=== PATIENT | female | born 1965 | race Caucasian/White ===

== ENCOUNTER 2023-11-06 14:00 | Outpatient (OUT) | payer MEDICARE, SELFPAY | END 2023-11-06 14:01 | disposition home or self-care (01) | PROVIDERS: PCP Internal Medicine; Visit Provider Surgery | DX: Z01.818 Encounter for other preprocedural examination (principal); Z12.11 Encounter for screening for malignant neoplasm of colon ==

== ENCOUNTER 2023-11-14 07:21 | Day surgery (SDC) | payer MEDICARE, SELFPAY ==
--- NOTE | 2023-11-14 | OP_ITS ---
OPERATION DATE: 11/14/2023 PREOPERATIVE DIAGNOSIS: Colorectal screening. POSTOPERATIVE DIAGNOSIS: A 4 mm transverse colon polyp and sigmoid diverticulosis. PROCEDURE: Colonoscopy to cecum with cold snare polypectomy x1. SURGEON: Quinton Vela M.D. ANESTHESIA: Monitored anesthesia care. ESTIMATED BLOOD LOSS: Less than 1 mL. INDICATIONS AND CONSENT: Patient is a 58-year-old female presents for colorectal screening. Indications, risks, benefits, alternatives of proceeding with colonoscopy were explained extensively to the patient, including the risks of bleeding, colon perforation or anesthetic complications. All of her questions were answered. Informed consent was obtained. PROCEDURE: Patient brought to the operating room, placed in the left lateral decubitus position. Monitored anesthesia care was provided. Rectal exam was performed which showed no masses or blood. The scope was inserted into the anal canal. Under direct visualization was advanced. With the aid of abdominal compression, it was advanced to the cecum where cecal markings were clearly identified. There was noted to be a good prep. Upon withdrawal of the scope, mucosal surfaces were carefully examined. There were no mass lesions or inflammatory changes. In the distal transverse colon, there was a 4 mm sessile polyp that was irregular. This was removed with cold snare with good hemostasis. Within the sigmoid colon, there was moderate sigmoid diverticulosis, without inflammatory changes or scarring. The scope was retroflexed in the anal canal. There was no significant hemorrhoidal disease. Scope was then withdrawn. Patient tolerated procedure well, was sent to recovery room in good condition. Follow up colonoscopy likely will be in five years, but will depend on the pathology report. CC: Luca Stahl
--- OUTSIDE RECORDS SUMMARY | 2023-11-14 07:25 | XMS_ITS | CCD ---
Author Name Unknown Address [address] [place] [address] Organization [facility] Care Team Providers Care Lumber Stacker Operator Name Role Phone DAHLIA DRIVER JR Unavailable Unavailable DAHLIA DRIVER JR Unavailable Unavailable VALONE, JONATHON Unavailable Unavailable MARVEL NICOLAS Unavailable Unavailable NEISHA MONTIEL, DAHLIA Guo Unavailable Unavailable VALONE, JONATHON Unavailable Unavailable VALONE, JONATHON Unavailable Unavailable VALONE, JONATHON Unavailable Unavailable VALONE, JONATHON Unavailable Unavailable BRYAN FOFANA Unavailable Unavailable KAREN OSMAN Unavailable Unavailable RABIA HATCH Unavailable Unavailable ROBBINONE JONATHON MONTIEL Primary Care Physician JONATHON LEE Referring Unavailable Quinton ZUNIGA Attending Unavailable VALONE JR, JONATHON L Referring Unavailable VALONE JR, JONATHON L Primary Care Unavailable VALONE JR, JONATHON L Primary Care Unavailable JUAN HA Attending Unavailable ARIELLA TSANG Unavailable ROXANA FOFANA Admitting Unavailable VALONE JR, JONATHON Guo Referring Unavailable VALONE JR, JONATHON L Primary Care Unavailable LU PLUNKETT Referring Unavailable SARA VELAZCO Attending Unavailable NANCY ALFREDO Referring Unavailable ALFREDO CRUZ Referring Unavailable ERIUKALÓPEZ PASTOR Referring Unavailable MOUKARBELLÓPEZ Referring Unavailable MOUKARBELLÓPEZ Referring Unavailable MOUKARBELLÓPEZ Referring Unavailable NANCY, ALFREDO Referring Unavailable ERIUKALÓPEZ PASTOR Attending Unavailable NANCY, ALFREDO Referring Unavailable Allergies Allergy Classification Reported Allergen(s) Allergy Type Date of Onset Reaction(s) Facility (1 source) No Known Medication Allergies; Translations: [No Known Medication Allergies] Propensity to adverse reactions (disorder) [facility] Repository (1 source) denosumab; Translations: [DENOSUMAB] Drug Allergy 4 [facility] Repository Medications Current Medications Medication Drug Class(es) Dates Sig (Normalized) Sig (Original) calcitriol 0.62830 mg oral capsule (1 source) Vitamin D3 Analog Start: 06-29-2022 calcitriol 0.25 mcg Cap 0.25 mcg = 1 cap(s), Oral, MonWedFri, Refills(s) 0 Start Date: 06/29/22 Status: Ordered calcium acetate 667 mg oral capsule (1 source) Start: 10-10-2023 take 1 capsule by mouth three times daily calcium acetate 667 mg oral capsule 667 mg = 1 cap(s), Oral, TID, Refills(s) 0 Start Date: 10/10/23 Status: Ordered DilTIAZem (Eqv-Cardizem CD) 180 mg/24 hours oral capsule, extended release (1 source) Start: 10-01-2023 DilTIAZem (Eqv-Cardizem CD) 180 mg/24 hours oral capsule, extended release 180 mg = 1 cap(s), Oral, Daily, Refills(s) 0 Start Date: 10/01/23 Status: Ordered gabapentin 300 mg oral capsule (1 source) Anti-epileptic Agent Start: 09-02-2021 take 1 capsule by mouth once daily gabapentin 300 mg Cap 300 mg = 1 cap(s), Oral, Daily, Refills(s) 0 Start Date: 09/02/21 Status: Ordered magnesium oxide 400 mg oral tablet (1 source) Start: 10-10-2023 take 1 tablet by mouth once daily magnesium oxide 400 mg Tab 400 mg = 1 tab(s), Oral, Daily, Refills(s) 0 Start Date: 10/10/23 Status: Ordered rosuvastatin calcium 20 mg oral tablet (1 source) HMG-CoA Reductase Inhibitor Start: 06-17-2021 take 1 tablet by mouth once daily rosuvastatin 20 mg Tab 20 mg = 1 tab(s), Oral, Daily, Refills(s) 0 Start Date: 06/17/21 Status: Ordered Problems Active Problems Problem Classification Problem Date Documented Date Episodic/Chronic Abdominal pain (1 source) Epigastric pain; Translations: [EPIGASTRIC PAIN] Onset: Episodic Cardiac dysrhythmias (1 source) Supraventricular tachycardia 10-01-2023 Chronic Chronic kidney disease (7 sources) Dependence on continuous ambulatory peritoneal dialysis; Translations: [End-stage renal disease] Onset: 3 10-10-2023 Chronic Disorders of lipid metabolism (4 sources) Hyperlipidemia; Translations: [Mixed hyperlipidemia] Onset: 3 06-04-2019 Chronic Essential hypertension (5 sources) Essential (primary) hypertension; Translations: [Essential hypertension] Onset: 8 10-01-2023 Chronic Fluid and electrolyte disorders (1 source) Other disorders of electrolyte and fluid balance, not elsewhere classified; Translations: [Other disorders of electrolyte and fluid balance, not elsewhere classified] Onset: 4 Episodic Gastritis and duodenitis (1 source) Unspecified chronic gastritis without bleeding; Translations: [UNS CHRONIC GASTRITIS W/O BLEEDING] Onset: 8 Chronic Genitourinary symptoms and ill-defined conditions (1 source) Genuine stress incontinence 06-04-2019 Chronic Genitourinary symptoms and ill-defined conditions (8 sources) Hematuria, unspecified; Translations: [Microscopic hematuria] Onset: 8 06-04-2019 Episodic Headache; including migraine (1 source) Migraine 10-01-2023 Chronic Osteoporosis (1 source) Osteoporosis 10-01-2023 Chronic Other aftercare (1 source) Encounter for follow-up examination after completed treatment for conditions other than malignant neoplasm; Translations: [Encounter for follow-up examination after completed treatment for conditions other than malignant neoplasm] Onset: 4 Episodic Other diseases of bladder and urethra (1 source) Urethral stricture 06-04-2019 Episodic Other gastrointestinal disorders (4 sources) Dysphagia, unspecified; Translations: [DYSPHAGIA UNSPECIFIED] Onset: 8 Episodic Other nutritional; endocrine; and metabolic disorders (1 source) Hypocalcemia; Translations: [Hypocalcemia] Onset: 4 Chronic Other screening for suspected conditions (not mental disorders or infectious disease) (4 sources) Screening for malignant neoplasm of colon done; Translations: [Encounter for screening for malignant neoplasm of colon] Onset: 3 Episodic Unclassified (1 source) Patient encounter status 10-10-2023 Unclassified (1 source) Abnormal Lab Onset: 4 Unclassified (1 source) Abnormal Lab Values Onset: 4 Urinary tract infections (1 source) 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 Episodic Past or Other Problems Problem Classification Problem Date Documented Da te Episodic/Chronic Other diseases of kidney and ureters (1 source) Disorder of kidney and ureter, unspecified; Translations: [DISORDER KIDNEY AND URETER UNS] Onset: 11-09-2017 Episodic Results Test Name Value Interpretation Reference Range Facility MAMM 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 COMPARISON: Mammograms dating back to 03/01/2017 TECHNIQUE: Bilateral digital tomosynthesis MLO and CC views of the breasts were obtained, with creation of synthetic 2D views. Computer aided detection was utilized. FINDINGS: The breasts are almost entirely fatty. There are no suspicious masses, calcifications, or areas of architectural distortions. IMPRESSION: No mammographic evidence of malignancy. BI-RADS: BI-RADS 1 - Negative Recommendation: Routine screening mammogram in 1 year. Finalized by Suzi Reis MD on 11/09/2023 1:31 PM 1 a MAMM 1 YR Normal [facility] 30on 11-07-2023 30 Treadmill Cardiolite Patient information sheet explained, questions answered and signed. Doctor consulted--NA Treatment/Decision tree utilized-renal transplant evaluation F/U appointment scheduled with Dr. Mo 11/07/@ 11:40am PT tolerated treadmill well, target heart rate achieved. No acute ST or T waves changes noted Denies chest pain or dyspnea Pt left stress lab asymptomatic and hemodynamically stable. Full final report from mill dresser to follow Leticia Quinn, MSN, ICE RINK ATTENDANT Stress Lab Normal [facility] ABO/RHon 11-07-2023 ABO group Nom (Bld) B Normal [facility] Comment on above: Performed By: #### L [id number] ####[facility] BLOOD BANK, RH TYPE IN BLOOD Positive Normal [facility] Comment on above: Performed By: #### L [id number] ####[facility]OD [facility], Consulton 11-07-2023 Consult [id number] Ho Zambrano 1965 F Date Provider Department Center 11/07/2023 [facility] CARD [place] HeartVAS Family History Problem Relation Age of Onset Cancer Father Breast cancer Mother's Sister Breast cancer Cousin Family Status - Relation Status Age at Father Mother's Sister Cousin Alive Level of Service:63058 SD OFFICE/OP CONSLTJ NEW/EST PT LOW MDM 30 MINUTES Reason for Visit and Comments: Cardiac evaluation for Renal Transplant [Other] - CREDIT RISK MODELER with stress and echo today. Normal [facility] Labon 11-07-2023 Lab [id number] Ho Zambrano eenorberto 1965 F Date Provider Department Center 11/07/2023 2245-[facility] OPD LAB RESOURCE [facility] OPD [place] Medical C Family History Problem Relation Age of Onset Cancer Father Breast cancer Mother's Sister Breast cancer Cousin Family Status - Relation Status Age at Father Mother's Sister Cousin Alive Normal [facility] PANEL REACTIVE ANTIBODYon HOLD SPECIMEN Hold for add-ons. Normal [facility] Comment on above: Result Comment: Auto resulted. Performed By: #### L [id number] #### [facility] TISSUE TYPING (HISTOTRAC) [address] [id number] [facility] Physician Orderon 10-26-2023 Physician Order [id number] IFF Normal [facility] Formson 10-12-2023 Forms [id number]#[id number] FF [facility] Consent for Procedure/Surger yon 10-11-2023 Consent for Procedure/Surgery [id number]#1.00T IFF Normal [facility] Ambulatory Visit Summaryon 0 10-10-2023 Ambulatory Visit Summary MULU ZAMBRANO :1965 Visit Date:10/10/2023 Ambulatory Visit Instructions Your Diagnosis Special screening for malignant neoplasm of colon Your Care Team Attending Physician - Quinton ZUNIGA MD Primary Care Physician - JONATHON LEE JR, DO Referring Physician - JONATHON LEE JR, DO This Is Your Medications List Contact prescribing physician if questions or concerns calcitriol (calcitriol 0.25 mcg Cap) calcium acetate (calcium acetate 667 mg oral capsule) diltiazem (DilTIAZem (Eqv-Cardizem CD) 180 mg/24 hours oral capsule, extended release) gabapentin (gabapentin 300 mg Cap) magnesium oxide (magnesium oxide 400 mg Tab) rosuvastatin (rosuvastatin 20 mg Tab) Procedures Performed Cystourethroscopy with dilation of urethral stricture (11/15/2017), Colonoscopy (12/16/2015), CAPD - continuous ambulatory peritoneal dialysis, EGD - esophagogastroduodenosc opy, EGD - esophagogastroduodenosc opy. Discharge Vitals Heart Rate (Peripheral) 76 Respiratory Rate 16 Blood Pressure 128/90 Height 152.4 cm Height 60 in Weight 74.2 kg Weight 163.24 lb BMI 31.95 Medications What How Much When Instructions Unchanged calcitriol (calcitriol 0.25 mcg Cap) 1 Capsules By Mouth Sunday Contact prescribing physician if questions or concerns Unchanged calcium acetate (calcium acetate 667 mg oral capsule) 1 Capsules By Mouth 3 times a day Contact prescribing physician if questions or concerns Unchanged diltiazem (DilTIAZem (Eqv-Cardizem CD) 180 mg/ 24 hours oral capsule, extended release) 1 Capsules By Mouth Every day Contact prescribing physician if questions or concerns Unchanged gabapentin (gabapentin 300 mg Cap) 1 Capsules By Mouth Every day Contact prescribing physician if questions or concerns Unchanged magnesium oxide (magnesium oxide 400 mg Tab) 1 Tablets By Mouth Every day Contact prescribing physician if questions or concerns Unchanged rosuvastatin (rosuvastatin 20 mg Tab) 1 Tablets By Mouth Every day Contact prescribing physician if questions or concerns Allergies No Known Allergies No Known Medication Allergies Problems Ongoing - Any problem that you are currently receiving treatment for. Chronic interstitial nephritis Continuous ambulatory peritoneal dialysis status End stage renal disease Essential hypertension Hyperlipidemia Microscopic hematuria Migraines Nocturia Osteoporosis Special screening for malignant neoplasm of colon Stress urinary incontinence SVT (supraventricular tachycardia) Urethral stricture Urgency - urination Urinary frequency Historical - Any problem that you are no longer receiving treatment for. Hyperlipidemia Hypertension Patient Survey You may receive a survey via text or e-mail asking about your office visit. Please share your experience with us by completing your survey. We appreciate your feedback and thank you for choosing us for your care. Normal [facility] Facesheeton 10-10-2023 Facesheet [id number] [id number] Normal [facility] BASIC METABOLIC PANLon 10-03 Anion gap [Moles/Vol] 11 mmol/L Normal 5-15 [facility] Comment on above: Performed By: #### C BCA, CMP, FEPR, 57265-3, 2777-1, 5193-8, 5196-1, 2276-4, 2731-8, 2132-9, 2284-8, 03258-7 #### [facility] ([id number]) [address], [address] [place] [address] Calcium [Mass/Vol] 8.5 mg/dL Normal 8.5-10.5 [facility] Comment on above: Performed By: #### C BCA, CMP, FEPR, 09882-1, 7-1, 3-8, 5196-1, 2276-4, 2731-8, 2132-9, 2284-8, 51356-6 #### [facility] ([id number]) [address], [address] [place] [address] Chloride [Moles/Vol] 111 mmol/L High 98-109 [facility] Comment on above: Performed By: #### C BCA, CMP, FEPR, 18512-8, 7-1, 5193-8, 5196-1, 2276-4, 2731-8, 2132-9, 2284-8, 01945-5 #### [facility] ([id number]) [address], [address] [place] [address] CO2 [Moles/Vol] 21 mmol/L Low 22-32 [facility] Comment on above: Performed By: #### C BCA, CMP, FEPR, 32748-2, 2777-1, 5193-8, 5196-1, 2276-4, 2731-8, 2132-9, 2284-8, 49157-1 #### [facility] ([id number]) [address], [address] [place] [address] Creatinine [Mass/Vol] 3.78 mg/dL High 0.40-1.00 [facility] Comment on above: Result Comment: METH OD TRACEABLE TO IDMS STANDARD Performed By: #### C BCA, CMP, FEPR, 99740-8, 2777-1, 5193-8, 5196-1, 2276-4, 2731-8, 2132-9, 2284-8, 26119-4 #### [facility] ([id number]) [address], [address] [place] [address] GFR/1.73 sq M.predicted among non-blacks MDRD (S/P/Bld) [Vol rate/Area] 13 mL/min/{1.73_m2} Low >59 [facility] Comment on above: Result Comment: Reported eGFR is based on the CKD-EPI 2020 equation that does not use a race coefficient. Performed By: #### C BCA, CMP, FEPR, 43799-9, 2777-1, 5193-8, 5196-1, 2276-4, 2731-8, 2132-9, 2284-8, 00728-4 #### [facility] ([id number]) [address], [address] [place] [address] Glucose [Mass/Vol] 93 mg/dL Normal 65-99 [facility] Comment on above: Performed By: #### C BCA, CMP, FEPR, 53450-1, 2777-1, 5193-8, 5196-1, 2276-4, 2731-8, 2132-9, 2284-8, 46347-4 #### [facility] ([id number]) [address], [address] [place] [address] Potassium [Moles/Vol] 4.2 mmol/L Normal 3.5-5.0 [facility] Comment on above: Performed By: #### C BCA, CMP, FEPR, 43812-5, 7-1, 5193-8, 5196-1, 2276-4, 2731-8, 2132-9, 2284-8, 28918-0 #### [facility] ([id number]) [address] [facility], [address] [place] [address] Sodium [Moles/Vol] 143 mmol/L Normal 134-146 [facility] Comment on above: Performed By: #### C BCA, CMP, FEPR, 88448-2, 7-1, 3-8, 5196-1, 2276-4, 2731-8, 2132-9, 2284-8, 22790-3 #### [facility] ([id number]) [address] [place] [address], [address] [place] [address] Urea nitrogen [Mass/Vol] 25 mg/dL High 5-23 [facility] Comment on above: Performed By: #### C BCA, CMP, FEPR, 24898-4, 7-1, 3-8, 6-1, 2276-4, 2731-8, 2-9, 2284-8, 25739-0 #### [facility] ([id number]) [address] [place] [address], [address] [place] [address] CBC AND AUTO DIFFon 01-10-20 24 ABSOLUTE BASOPHIL 0.0 X10E9/L Normal 0.0-0.2 [facility] Comment on above: Performed By: #### C BCA, CMP, FEPR, 83263-3, 7-1, 3-8, 5196-1, 2276-4, 2731-8, 2132-9, 2284-8, 43317-8 #### [facility] ([id number]) [facility] [facility], [address] [place] [address] ABSOLUTE NEUTROPHIL 2.7 X10E9/L Normal 1.5-6.6 [facility] Comment on above: Performed By: #### C BCA, CMP, FEPR, 46146-4, 2777-1, 5193-8, 5196-1, 2276-4, 2731-8, 2132-9, 2284-8, 15660-8 #### [facility] ([id number]) [address], [address] [place] [address] Basophils/100 WBC (Bld) 0.7 % Normal [facility] Comment on above: Performed By: #### C BCA, CMP, FEPR, 32393-5, 2777-1, 5193-8, 5196-1, 2276-4, 2731-8, 2132-9, 2284-8, 45739-3 #### [facility] ([id number]) [address], [address] [place] [address] Eosinophils (Bld) [#/Vol] 0.1 10*3/uL Normal 0.0-0.4 [facility] Comment on above: Performed By: #### C BCA, CMP, FEPR, 50328-3, 7-1, 3-8, 5196-1, 2276-4, 2731-8, 2132-9, 2284-8, 28155-6 #### [facility] ([id number]) [address], [address] [place] [address] Eosinophils/100 WBC (Bld) 2.3 % Normal [facility] Comment on above: Performed By: #### C BCA, CMP, FEPR, 66536-2, 7-1, 3-8, 5196-1, 2276-4, 2731-8, 2132-9, 2284-8, 07149-9 #### [facility] ([id number]) [address], [address] [place] [address] Erythrocyte distribution width (RBC) [Ratio] 13.7 % Normal 11.5-15.0 [facility] Comment on above: Performed By: #### C BCA, CMP, FEPR, 18942-6, 7-1, 5193-8, 5196-1, 2276-4, 2731-8, 2132-9, 2284-8, 73053-9 #### [facility] ([id number]) [address], [address] [place] [address] Hematocrit (Bld) [Volume fraction] 32.2 % Low 35-47 [facility] Comment on above: Performed By: #### C BCA, CMP, FEPR, 67034-8, 7-1, 3-8, 5196-1, 2276-4, 2731-8, 2132-9, 2284-8, 56043-3 #### [facility] ([id number]) [address] [facility], [address] [place] [address] Hemoglobin (Bld) [Mass/Vol] 11.1 g/dL Low 11.7-15.5 [facility] Comment on above: Performed By: #### C BCA, CMP, FEPR, 89863-1, 7-1, 3-8, 6-1, 2276-4, 2731-8, 2132-9, 2284-8, 43132-9 #### [facility] ([id number]) [address] [facility], [address] [place] [address] Lymphocytes (Bld) [#/Vol] 1.5 10*3/uL Normal 1.0-3.5 [facility] Comment on above: Performed By: #### C BCA, CMP, FEPR, 83971-3, 7-1, 3-8, 5196-1, 2276-4, 2731-8, 2132-9, 2284-8, 85488-6 #### [facility] ([id number]) [address], [address] [place] [address] Lymphocytes/100 WBC (Bld) 31.6 % Normal [facility] Comment on above: Performed By: #### C BCA, CMP, FEPR, 21315-8, 7-1, 3-8, 5196-1, 2276-4, 2731-8, 2132-9, 2284-8, 12186-8 #### [facility] ([id number]) [address], [address] [place] [address] MCH (RBC) [Entitic mass] 32.3 pg Normal 27-34 [facility] Comment on above: Performed By: #### C BCA, CMP, FEPR, 70361-9, 7-1, 3-8, 5196-1, 2276-4, 2731-8, 2132-9, 2284-8, 13183-2 #### [facility] ([id number]) [address], [address] [place] [address] MCHC (RBC) [Mass/Vol] 34.3 g/dL Normal 32-36 [facility] Comment on above: Performed By: #### C BCA, CMP, FEPR, 83487-5, 7-1, 3-8, 6-1, 2276-4, 2731-8, 2-9, 2284-8, 69680-3 #### [facility] ([id number]) [address], [address] [place] [address] MCV (RBC) [Entitic vol] 94 fL Normal 80-100 [facility] Comment on above: Performed By: #### C BCA, CMP, FEPR, 78190-5, 7-1, 3-8, 6-1, 2276-4, 2731-8, 2132-9, 2284-8, 63858-8 #### [facility] ([id number]) [address], [address] [place] [address] Monocytes (Bld) [#/Vol] 0.4 10*3/uL Normal 0-0.9 [facility] Comment on above: Performed By: #### C BCA, CMP, FEPR, 99319-1, 7-1, 3-8, 6-1, 2276-4, 2731-8, 2132-9, 2284-8, 28942-0 #### [facility] ([id number]) [address], [address] [place] [address] Monocytes/100 WBC (Bld) 8.3 % Normal [facility] Comment on above: Performed By: #### C BCA, CMP, FEPR, 01067-0, 2777-1, 5193-8, 5196-1, 2276-4, 2731-8, 2132-9, 2284-8, 36643-7 #### [facility] ([id number]) [address], [address] [place] [address] Neutrophils/100 WBC (Bld) 57.1 % Normal [facility] Comment on above: Performed By: #### C BCA, CMP, FEPR, 35201-2, 2777-1, 3-8, 5196-1, 2276-4, 2731-8, 2132-9, 2284-8, 72869-8 #### [facility] ([id number]) [address], [address] [place] [address] Platelet mean volume (Bld) [Entitic vol] 7.1 fL Normal 7-12 [facility] Comment on above: Performed By: #### C BCA, CMP, FEPR, 06931-1, 2777-1, 3-8, 5196-1, 2276-4, 2731-8, 2132-9, 2284-8, 97851-9 #### [facility] ([id number]) [address], [address] [place] [address] Platelets (Bld) [#/Vol] 270 10*3/uL Normal 150-450 [facility] Comment on above: Performed By: #### C BCA, CMP, FEPR, 25108-7, 2777-1, 5193-8, 5196-1, 2276-4, 2731-8, 2132-9, 2284-8, 60874-0 #### [facility] ([id number]) [address], [address] [place] [address] RBC COUNT 3.43 X10E12/L Low 3.80-5.20 [facility] Comment on above: Performed By: #### C BCA, CMP, FEPR, 04613-8, 2777-1, 5193-8, 5196-1, 2276-4, 2731-8, 2132-9, 2284-8, 67949-4 #### [facility] ([id number]) [address], [address] [place] [address] WBC (Bld) [#/Vol] 4.7 10*3/uL Normal 4.0-11.0 [facility] Comment on above: Performed By: #### C BCA, CMP, FEPR, 01934-8, 2777-1, 3-8, 5196-1, 2276-4, 2731-8, 2132-9, 2284-8, 86197-0 #### [facility] ([id number]) [address] [facility], [address] [place] [address] Calcium.ionized (Bld) [Moles /Vol]on 10-03-2023 PORTABLE ICA 4.8 mg/dL Normal 4.5-5.3 [facility] Comment on above: Performed By: #### C BCA, CMP, FEPR, 77963-6, 2777-1, 5193-8, 5196-1, 2276-4, 2731-8, 2132-9, 2284-8, 77342-0 #### [facility] ([id number]) [address], [address] [place] [address] PORTABLE ICA 4.6 mg/dL Normal 4.5-5.3 [facility] Comment on above: Performed By: #### C BCA, CMP, FEPR, 75926-2, 2777-1, 5193-8, 5196-1, 2276-4, 2731-8, 2132-9, 2284-8, 18722-6 #### [facility] ([id number]) [address] [facility], [address] [place] [address] MAGNESIUMon 10-03-2023 Magnesium [Mass/Vol] 2.3 mg/dL Normal 1.8-2.6 [facility] Comment on above: Performed By: #### C BCA, CMP, FEPR, 19266-7, 7-1, 3-8, 5196-1, 2276-4, 2731-8, 2131-9, 2283-8, 59121-3 #### [facility] ([id number]) [address] [facility], [address] [place] [address] PHOSPHORUSon 10-03-2023 Phosphate [Mass/Vol] 5.1 mg/dL High 2.4-4.9 [facility] Comment on above: Performed By: #### C BCA, CMP, FEPR, 65483-0, 7-1, 3-8, 6-1, 2276-4, 2730-8, 2131-9, 2283-8, 09644-7 #### [facility] ([id number]) [address] [facility], [address] [place] [address] BASIC METABOLIC PANLon 10-02 Anion gap [Moles/Vol] 11 mmol/L Normal 5-15 [facility] Comment on above: Performed By: #### C BCA, CMP, FEPR, 46009-5, 7-1, 3-8, 5196-1, 2276-4, 1-8, 2131-9, 4-8, 87080-7 #### [facility] ([id number]) [address], [address] [place] [address] Calcium [Mass/Vol] 6.0 mg/dL Critically low 8.5-10.5 [facility] Comment on above: Performed By: #### C BCA, CMP, FEPR, 71260-6, 7-1, 5193-8, 5196-1, 2276-4, 2731-8, 2132-9, 2284-8, 02543-9 #### [facility] ([id number]) [address], [address] [place] [address] Chloride [Moles/Vol] 109 mmol/L Normal 98-109 [facility] Comment on above: Performed By: #### C BCA, CMP, FEPR, 46825-8, 2777-1, 5193-8, 5196-1, 2276-4, 2731-8, 2132-9, 2284-8, 66366-2 #### [facility] ([id number]) [address] [facility], [address] [place] [address] CO2 [Moles/Vol] 20 mmol/L Low 22-32 [facility] Comment on above: Performed By: #### C BCA, CMP, FEPR, 19440-6, 7-1, 3-8, 6-1, 2276-4, 2731-8, 2132-9, 2284-8, 59245-7 #### [facility] ([id number]) [address] [facility], [address] [place] [address] Creatinine [Mass/Vol] 3.80 mg/dL High 0.40-1.00 [facility] Comment on above: Result Comment: METH OD TRACEABLE TO IDMS STANDARD Performed By: #### C BCA, CMP, FEPR, 94156-4, 2777-1, 5193-8, 5196-1, 2276-4, 2731-8, 2132-9, 2284-8, 42488-2 #### [facility] ([id number]) [address] [facility], [address] [place] [address] GFR/1.73 sq M.predicted among non-blacks MDRD (S/P/Bld) [Vol rate/Area] 13 mL/min/{1.73_m2} Low >59 [facility] Comment on above: Result Comment: Reported eGFR is based on the CKD-EPI 2020 equation that does not use a race coefficient. Performed By: #### C BCA, CMP, FEPR, 35188-7, 2777-1, 5193-8, 5196-1, 2276-4, 2731-8, 2132-9, 2284-8, 39959-3 #### [facility] ([id number]) [address], [address] [place] [address] Glucose [Mass/Vol] 113 mg/dL High 65-99 [facility] Comment on above: Performed By: #### C BCA, CMP, FEPR, 26558-1, 2777-1, 3-8, 5196-1, 2276-4, 2731-8, 2132-9, 2284-8, 34136-0 #### [facility] ([id number]) [address], [address] [place] [address] Potassium [Moles/Vol] 3.5 mmol/L Normal 3.5-5.0 [facility] Comment on above: Performed By: #### C BCA, CMP, FEPR, 23916-4, 7-1, 3-8, 5196-1, 2276-4, 2731-8, 2132-9, 2284-8, 09880-2 #### [facility] ([id number]) [address], [address] [place] [address] Sodium [Moles/Vol] 140 mmol/L Normal 134-146 [facility] Comment on above: Performed By: #### C BCA, CMP, FEPR, 44149-1, 2777-1, 3-8, 5196-1, 2276-4, 2731-8, 2132-9, 2284-8, 19407-9 #### [facility] ([id number]) [address], [address] [place] [address] Urea nitrogen [Mass/Vol] 24 mg/dL High 5-23 [facility] Comment on above: Performed By: #### C BCA, CMP, FEPR, 76826-9, 2777-1, 5193-8, 5196-1, 2276-4, 2731-8, 2132-9, 2284-8, 54817-0 #### [facility] ([id number]) [address], [address] [place] [address] CBC AND AUTO DIFFon 10-02-19 24 ABSOLUTE BASOPHIL 0.0 X10E9/L Normal 0.0-0.2 [facility] Comment on above: Performed By: #### C BCA, CMP, FEPR, 26495-1, 2777-1, 5193-8, 5196-1, 2276-4, 2731-8, 2132-9, 2284-8, 89499-6 #### [facility] ([id number]) [address], [address] [place] [address] ABSOLUTE NEUTROPHIL 2.5 X10E9/L Normal 1.5-6.6 [facility] Comment on above: Performed By: #### C BCA, CMP, FEPR, 76509-9, 2777-1, 5193-8, 5196-1, 2276-4, 2731-8, 2132-9, 2284-8, 74735-3 #### [facility] ([id number]) [address], [address] [place] [address] Basophils/100 WBC (Bld) 0.7 % Normal [facility] Comment on above: Performed By: #### C BCA, CMP, FEPR, 53423-9, 2777-1, 5193-8, 5196-1, 2276-4, 2731-8, 2132-9, 2284-8, 59413-0 #### [facility] ([id number]) [address], [address] [place] [address] Eosinophils (Bld) [#/Vol] 0.1 10*3/uL Normal 0.0-0.4 [facility] Comment on above: Performed By: #### C BCA, CMP, FEPR, 34795-0, 2777-1, 5193-8, 5196-1, 2276-4, 2731-8, 2132-9, 2284-8, 32141-0 #### [facility] ([id number]) [address], [address] [place] [address] Eosinophils/100 WBC (Bld) 2.8 % Normal [facility] Comment on above: Performed By: #### C BCA, CMP, FEPR, 30749-8, 2777-1, 5193-8, 5196-1, 2276-4, 2731-8, 2132-9, 2284-8, 62750-6 #### [facility] ([id number]) [address], [address] [place] [address] Erythrocyte distribution width (RBC) [Ratio] 14.1 % Normal 11.5-15.0 [facility] Comment on above: Performed By: #### C BCA, CMP, FEPR, 16855-9, 2777-1, 5193-8, 5196-1, 2276-4, 2731-8, 2132-9, 2284-8, 17235-4 #### [facility] ([id number]) [address], [address] [place] [address] Hematocrit (Bld) [Volume fraction] 33.9 % Low 35-47 [facility] Comment on above: Performed By: #### C BCA, CMP, FEPR, 97968-1, 2777-1, 5193-8, 5196-1, 2276-4, 2731-8, 2132-9, 2284-8, 25400-1 #### [facility] ([id number]) [address], [address] [place] [address] Hemoglobin (Bld) [Mass/Vol] 11.5 g/dL Low 11.7-15.5 [facility] Comment on above: Performed By: #### C BCA, CMP, FEPR, 32476-2, 2777-1, 5193-8, 5196-1, 2276-4, 2731-8, 2132-9, 2284-8, 94673-5 #### [facility] ([id number]) [address], [address] [place] [address] Lymphocytes (Bld) [#/Vol] 1.1 10*3/uL Normal 1.0-3.5 [facility] Comment on above: Performed By: #### C BCA, CMP, FEPR, 05204-8, 2777-1, 5193-8, 5196-1, 2276-4, 2731-8, 2132-9, 2284-8, 54523-8 #### [facility] ([id number]) [address], [address] [place] [address] Lymphocytes/100 WBC (Bld) 27.7 % Normal [facility] Comment on above: Performed By: #### C BCA, CMP, FEPR, 64046-2, 2777-1, 5193-8, 5196-1, 2276-4, 2731-8, 2132-9, 2284-8, 87231-0 #### [facility] ([id number]) [address], [address] [place] [address] MCH (RBC) [Entitic mass] 31.6 pg Normal 27-34 [facility] Comment on above: Performed By: #### C BCA, CMP, FEPR, 38555-3, 2777-1, 5193-8, 5196-1, 2276-4, 2731-8, 2132-9, 2284-8, 13796-6 #### [facility] ([id number]) [address], [address] [place] [address] MCHC (RBC) [Mass/Vol] 33.9 g/dL Normal 32-36 [facility] Comment on above: Performed By: #### C BCA, CMP, FEPR, 39464-9, 2777-1, 5193-8, 5196-1, 2276-4, 2731-8, 2132-9, 2284-8, 12645-2 #### [facility] ([id number]) [address], [address] [place] [address] MCV (RBC) [Entitic vol] 93 fL Normal 80-100 [facility] Comment on above: Performed By: #### C BCA, CMP, FEPR, 19747-1, 2777-1, 5193-8, 5196-1, 2276-4, 2731-8, 2132-9, 2284-8, 40021-6 #### [facility] ([id number]) [address], [address] [place] [address] Monocytes (Bld) [#/Vol] 0.3 10*3/uL Normal 0-0.9 [facility] Comment on above: Performed By: #### C BCA, CMP, FEPR, 96248-4, 2777-1, 3-8, 5196-1, 2276-4, 2731-8, 2132-9, 2284-8, 72292-0 #### [facility] ([id number]) [address] [facility], [address] [place] [address] Monocytes/100 WBC (Bld) 8.5 % Normal [facility] Comment on above: Performed By: #### C BCA, CMP, FEPR, 96126-0, 2777-1, 5193-8, 5196-1, 2276-4, 2731-8, 2132-9, 2284-8, 01102-0 #### [facility] ([id number]) [address], [address] [place] [address] Neutrophils/100 WBC (Bld) 60.3 % Normal [facility] Comment on above: Performed By: #### C BCA, CMP, FEPR, 21784-8, 2777-1, 5193-8, 5196-1, 2276-4, 2731-8, 2132-9, 2284-8, 13275-1 #### [facility] ([id number]) [address], [address] [place] [address] Platelet mean volume (Bld) [Entitic vol] 6.7 fL Low 7-12 [facility] Comment on above: Performed By: #### C BCA, CMP, FEPR, 07504-8, 2777-1, 5193-8, 5196-1, 2276-4, 2731-8, 2132-9, 2284-8, 07848-2 #### [facility] ([id number]) [address], [address] [place] [address] Platelets (Bld) [#/Vol] 271 10*3/uL Normal 150-450 [facility] Comment on above: Performed By: #### C BCA, CMP, FEPR, 78898-0, 2777-1, 3-8, 5196-1, 2276-4, 2731-8, 2132-9, 2284-8, 09181-4 #### [facility] ([id number]) [address], [address] [place] [address] RBC COUNT 3.64 X10E12/L Low 3.80-5.20 [facility] Comment on above: Performed By: #### C BCA, CMP, FEPR, 66491-1, 2777-1, 3-8, 5196-1, 2276-4, 2731-8, 2132-9, 2284-8, 32555-6 #### [facility] ([id number]) [address], [address] [place] [address] WBC (Bld) [#/Vol] 4.1 10*3/uL Normal 4.0-11.0 [facility] Comment on above: Performed By: #### C BCA, CMP, FEPR, 21063-2, 2777-1, 3-8, 5196-1, 2276-4, 2731-8, 2132-9, 2284-8, 71075-2 #### [facility] ([id number]) [address] [place] [address], [address] [place] [address] Calcium.ionized (Bld) [Moles /Vol]on 10-02-2023 PORTABLE ICA 4.4 mg/dL Low 4.5-5.3 [facility] Comment on above: Performed By: #### C BCA, CMP, FEPR, 92198-5, 2777-1, 5193-8, 5196-1, 2276-4, 2731-8, 2132-9, 2284-8, 51595-6 #### [facility] ([id number]) [address] [place] [address], [address] [place] [address] PORTABLE ICA 2.9 mg/dL Critically low 4.5-5.3 [facility] Comment on above: Performed By: #### C BCA, CMP, FEPR, 47298-3, 2777-1, 5193-8, 5196-1, 2276-4, 2731-8, 2132-9, 2284-8, 09908-9 #### [facility] ([id number]) [address] [place] [address], [address] [place] [address] MAGNESIUMon 10-02-2023 Magnesium [Mass/Vol] 1.7 mg/dL Low 1.8-2.6 [facility] Comment on above: Performed By: #### C BCA, CMP, FEPR, 21453-3, 2777-1, 5193-8, 5196-1, 2276-4, 2731-8, 2132-9, 2284-8, 74664-6 #### [facility] ([id number]) [facility] [facility], [address] [place] [address] PHOSPHORUSon 10-02-2023 Phosphate [Mass/Vol] 4.0 mg/dL Normal 2.4-4.9 [facility] Comment on above: Performed By: #### C BCA, CMP, FEPR, 59470-1, 2777-1, 5193-8, 5196-1, 2276-4, 2731-8, 2132-9, 2284-8, 81905-5 #### [facility] ([id number]) [address] [facility], [address] [place] [address] TROPONIN Ion 10-02-2023 Troponin I.cardiac [Mass/Vol] ng/mL Normal 0.00-0.04 [facility] Comment on above: Performed By: #### C BCA, CMP, FEPR, 16337-1, 2777-1, 5193-8, 5196-1, 2276-4, 2731-8, 2132-9, 2284-8, 36895-9 #### [facility] ([id number]) [facility] [facility], [address] [place] [address] Aluminum [Mass/Vol]on 2023 ALUMINUM <5.0 Normal 0.0-15.0 [facility] Comment on above: Result Comment: NOTE INTERPRETIVE INFORMATION: Aluminum, Serum Serum aluminum greater than 50.0 ug/L is consistent with overload and may correlate with toxicity. Elevated results may be due to skin or collection-related contamination, including the use of a noncertified metal-free collection/transport tube. If contamination concerns exist due to elevated levels of serum aluminum, confirmation with a second specimen collected in a certified metal-free tube is recommended. This test was developed and its performance characteristics determined by [facility]. It has not been cleared or approved by the U.S. Food and Drug Administration. This test was performed in a CLIA-certified laboratory and is intended for clinical purposes. Performed By: [facility] [address] [place] [address] [employer]: Familia Rodriguez MD, PhD CLIA Number: [id number] Performed By: #### C BCA, CMP, FEPR, 55720-5, 2777-1, 5193-8, 5196-1, 2276-4, 2731-8, 2132-9, 2284-8, 43377-7 #### [facility] ([id number]) [address], [address] [place] [address] CBC AND AUTO DIFFon 10-01-19 24 ABSOLUTE BASOPHIL 0.0 X10E9/L Normal 0.0-0.2 [facility] Comment on above: Performed By: #### C BCA, CMP, FEPR, 08737-6, 2777-1, 5193-8, 5196-1, 2276-4, 2731-8, 2132-9, 2284-8, 34995-4 #### [facility] ([id number]) [address], [address] [place] [address] ABSOLUTE NEUTROPHIL 2.7 X10E9/L Normal 1.5-6.6 [facility] Comment on above: Performed By: #### C BCA, CMP, FEPR, 04008-3, 2777-1, 5193-8, 5196-1, 2276-4, 1-8, 2-9, 4-8, 21957-5 #### [facility] ([id number]) [address], [address] [place] [address] Basophils/100 WBC (Bld) 0.7 % Normal [facility] Comment on above: Performed By: #### C BCA, CMP, FEPR, 16174-9, 2777-1, 5193-8, 5196-1, 2276-4, 2731-8, 2-9, 4-8, 28138-5 #### [facility] ([id number]) [address], [address] [place] [address] Eosinophils (Bld) [#/Vol] 0.1 10*3/uL Normal 0.0-0.4 [facility] Comment on above: Performed By: #### C BCA, CMP, FEPR, 81527-6, 2777-1, 5193-8, 5196-1, 2276-4, 2731-8, 2132-9, 2284-8, 56988-9 #### [facility] ([id number]) [address], [address] [place] [address] Eosinophils/100 WBC (Bld) 2.1 % Normal [facility] Comment on above: Performed By: #### C BCA, CMP, FEPR, 89149-4, 2777-1, 5193-8, 5196-1, 2276-4, 2731-8, 2132-9, 2284-8, 24461-6 #### [facility] ([id number]) [address], [address] [place] [address] Erythrocyte distribution width (RBC) [Ratio] 13.7 % Normal 11.5-15.0 [facility] Comment on above: Performed By: #### C BCA, CMP, FEPR, 24065-1, 2777-1, 5193-8, 5196-1, 2276-4, 2731-8, 2132-9, 2284-8, 67975-4 #### [facility] ([id number]) [address], [address] [place] [address] Hematocrit (Bld) [Volume fraction] 33.7 % Low 35-47 [facility] Comment on above: Performed By: #### C BCA, CMP, FEPR, 39044-0, 2777-1, 5193-8, 5196-1, 2276-4, 2731-8, 2132-9, 2284-8, 58457-1 #### [facility] ([id number]) [address], [address] [place] [address] Hemoglobin (Bld) [Mass/Vol] 11.4 g/dL Low 11.7-15.5 [facility] Comment on above: Performed By: #### C BCA, CMP, FEPR, 22429-9, 2777-1, 5193-8, 5196-1, 2276-4, 2731-8, 2132-9, 2284-8, 32778-0 #### [facility] ([id number]) [address], [address] [place] [address] Lymphocytes (Bld) [#/Vol] 1.3 10*3/uL Normal 1.0-3.5 [facility] Comment on above: Performed By: #### C BCA, CMP, FEPR, 87710-1, 2777-1, 5193-8, 5196-1, 2276-4, 2731-8, 2132-9, 2284-8, 86468-5 #### [facility] ([id number]) [address], [address] [place] [address] Lymphocytes/100 WBC (Bld) 29.1 % Normal [facility] Comment on above: Performed By: #### C BCA, CMP, FEPR, 94975-1, 2777-1, 5193-8, 5196-1, 2276-4, 2731-8, 2132-9, 2284-8, 94895-2 #### [facility] ([id number]) [address], [address] [place] [address] MCH (RBC) [Entitic mass] 31.9 pg Normal 27-34 [facility] Comment on above: Performed By: #### C BCA, CMP, FEPR, 06010-1, 2777-1, 5193-8, 5196-1, 2276-4, 2731-8, 2132-9, 2284-8, 06291-1 #### [facility] ([id number]) [address], [address] [place] [address] MCHC (RBC) [Mass/Vol] 33.9 g/dL Normal 32-36 [facility] Comment on above: Performed By: #### C BCA, CMP, FEPR, 10554-1, 2777-1, 5193-8, 5196-1, 2276-4, 2731-8, 2132-9, 2284-8, 55004-9 #### [facility] ([id number]) [address], [address] [place] [address] MCV (RBC) [Entitic vol] 94 fL Normal 80-100 [facility] Comment on above: Performed By: #### C BCA, CMP, FEPR, 29101-1, 2777-1, 5193-8, 5196-1, 2276-4, 2731-8, 2132-9, 2284-8, 70736-3 #### [facility] ([id number]) [address], [address] [place] [address] Monocytes (Bld) [#/Vol] 0.4 10*3/uL Normal 0-0.9 [facility] Comment on above: Performed By: #### C BCA, CMP, FEPR, 16811-5, 2777-1, 5193-8, 5196-1, 2276-4, 2731-8, 2132-9, 2284-8, 04824-0 #### [facility] ([id number]) [address], [address] [place] [address] Monocytes/100 WBC (Bld) 9.4 % Normal [facility] Comment on above: Performed By: #### C BCA, CMP, FEPR, 62560-9, 2777-1, 5193-8, 5196-1, 2276-4, 2731-8, 2132-9, 2284-8, 52803-6 #### [facility] ([id number]) [address], [address] [place] [address] Neutrophils/100 WBC (Bld) 58.7 % Normal [facility] Comment on above: Performed By: #### C BCA, CMP, FEPR, 27046-8, 2777-1, 5193-8, 5196-1, 2276-4, 2731-8, 2132-9, 2284-8, 87974-6 #### [facility] ([id number]) [address], [address] [place] [address] Platelet mean volume (Bld) [Entitic vol] 7.2 fL Normal 7-12 [facility] Comment on above: Performed By: #### C BCA, CMP, FEPR, 23568-5, 2777-1, 5193-8, 5196-1, 2276-4, 2731-8, 2132-9, 2284-8, 36682-1 #### [facility] ([id number]) [address], [address] [place] [address] Platelets (Bld) [#/Vol] 289 10*3/uL Normal 150-450 [facility] Comment on above: Performed By: #### C BCA, CMP, FEPR, 60874-5, 2777-1, 5193-8, 5196-1, 2276-4, 2731-8, 2132-9, 2284-8, 05690-9 #### [facility] ([id number]) [address] [facility], [address] [place] [address] RBC COUNT 3.58 X10E12/L Low 3.80-5.20 [facility] Comment on above: Performed By: #### C BCA, CMP, FEPR, 79929-0, 2777-1, 5193-8, 5196-1, 2276-4, 2731-8, 2132-9, 2284-8, 31870-5 #### [facility] ([id number]) [address], [address] [place] [address] WBC (Bld) [#/Vol] 4.6 10*3/uL Normal 4.0-11.0 [facility] Comment on above: Performed By: #### C BCA, CMP, FEPR, 37307-6, 2777-1, 5193-8, 5196-1, 2276-4, 2731-8, 2132-9, 2284-8, 91629-0 #### [facility] ([id number]) [address], [address] [place] [address] COMPREHENSIVE METABOLIC PANE Juan Pablo 10-01-2023 Albumin [Mass/Vol] 3.9 g/dL Normal 3.2-5.3 [facility] Comment on above: Performed By: #### C BCA, CMP, FEPR, 17423-9, 2777-1, 5193-8, 5196-1, 2276-4, 2731-8, 2132-9, 2284-8, 74894-3 #### [facility] ([id number]) [address], [address] [place] [address] ALP [Catalytic activity/Vol] 65 U/L Normal 39-130 [facility] Comment on above: Performed By: #### C BCA, CMP, FEPR, 68877-8, 2777-1, 5193-8, 5196-1, 2276-4, 2731-8, 2132-9, 2284-8, 15425-0 #### [facility] ([id number]) [address], [address] [place] [address] ALT [Catalytic activity/Vol] 22 U/L Normal 0-31 [facility] Comment on above: Performed By: #### C BCA, CMP, FEPR, 72955-8, 2777-1, 5193-8, 5196-1, 2276-4, 2731-8, 2132-9, 2284-8, 86983-8 #### [facility] ([id number]) [address], [address] [place] [address] Anion gap [Moles/Vol] 14 mmol/L Normal 5-15 [facility] Comment on above: Performed By: #### C BCA, CMP, FEPR, 32381-6, 2777-1, 5193-8, 5196-1, 2276-4, 2731-8, 2132-9, 2284-8, 43750-5 #### [facility] ([id number]) [address], [address] [place] [address] AST [Catalytic activity/Vol] 25 U/L Normal 0-41 [facility] Comment on above: Performed By: #### C BCA, CMP, FEPR, 34917-9, 2777-1, 5193-8, 5196-1, 2276-4, 2731-8, 2132-9, 2284-8, 19405-7 #### [facility] ([id number]) [address], [address] [place] [address] Bilirubin [Mass/Vol] 0.3 mg/dL Normal 0.3-1.2 [facility] Comment on above: Performed By: #### C BCA, CMP, FEPR, 86888-2, 7-1, 3-8, 6-1, 2276-4, 2731-8, 2-9, 4-8, 44904-1 #### [facility] ([id number]) [address], [address] [place] [address] Calcium [Mass/Vol] 5.5 mg/dL Critically low 8.5-10.5 [facility] Comment on above: Performed By: #### C BCA, CMP, FEPR, 26236-6, 7-1, 3-8, 5196-1, 2276-4, 1-8, 2131-9, 4-8, 76045-1 #### [facility] ([id number]) [address], [address] [place] [address] Chloride [Moles/Vol] 108 mmol/L Normal 98-109 [facility] Comment on above: Performed By: #### C BCA, CMP, FEPR, 71943-6, 2777-1, 3-8, 6-1, 2276-4, 2731-8, 2132-9, 2284-8, 01895-9 #### [facility] ([id number]) [address], [address] [place] [address] CO2 [Moles/Vol] 23 mmol/L Normal 22-32 [facility] Comment on above: Performed By: #### C BCA, CMP, FEPR, 69326-0, 2777-1, 5193-8, 5196-1, 2276-4, 2731-8, 2132-9, 2284-8, 21110-5 #### [facility] ([id number]) [address], [address] [place] [address] Creatinine [Mass/Vol] 3.68 mg/dL High 0.40-1.00 [facility] Comment on above: Result Comment: METH OD TRACEABLE TO IDMS STANDARD Performed By: #### C BCA, CMP, FEPR, 45460-4, 2777-1, 5193-8, 5196-1, 2276-4, 2731-8, 2132-9, 2284-8, 26503-6 #### [facility] ([id number]) [address], [address] [place] [address] GFR/1.73 sq M.predicted among non-blacks MDRD (S/P/Bld) [Vol rate/Area] 14 mL/min/{1.73_m2} Low >59 [facility] Comment on above: Result Comment: Reported eGFR is based on the CKD-EPI 2020 equation that does not use a race coefficient. Performed By: #### C BCA, CMP, FEPR, 53374-5, 2777-1, 5193-8, 5196-1, 2276-4, 2731-8, 2132-9, 2284-8, 83321-2 #### [facility] ([id number]) [address], [address] [place] [address] Glucose [Mass/Vol] 90 mg/dL Normal 65-99 [facility] Comment on above: Performed By: #### C BCA, CMP, FEPR, 69601-0, 2777-1, 5193-8, 5196-1, 2276-4, 2731-8, 2132-9, 2284-8, 74828-6 #### [facility] ([id number]) [address], [address] [place] [address] Potassium [Moles/Vol] 3.6 mmol/L Normal 3.5-5.0 [facility] Comment on above: Performed By: #### C BCA, CMP, FEPR, 75568-3, 2777-1, 5193-8, 5196-1, 2276-4, 2731-8, 2132-9, 2284-8, 13932-3 #### [facility] ([id number]) [address], [address] [place] [address] Protein [Mass/Vol] 6.4 g/dL Normal 6.0-8.0 [facility] Comment on above: Performed By: #### C BCA, CMP, FEPR, 52122-7, 2777-1, 5193-8, 5196-1, 2276-4, 2731-8, 2132-9, 2284-8, 79046-8 #### [facility] ([id number]) [address], [address] [place] [address] Sodium [Moles/Vol] 145 mmol/L Normal 134-146 [facility] Comment on above: Performed By: #### C BCA, CMP, FEPR, 53844-5, 2777-1, 5193-8, 5196-1, 2276-4, 2731-8, 2132-9, 2284-8, 27602-3 #### [facility] ([id number]) [address], [address] [place] [address] Urea nitrogen [Mass/Vol] 20 mg/dL Normal 5-23 [facility] Comment on above: Performed By: #### C BCA, CMP, FEPR, 08888-6, 2777-1, 5193-8, 5196-1, 2276-4, 2731-8, 2132-9, 2284-8, 73106-3 #### [facility] ([id number]) [address], [address] [place] [address] FERRITINon 10-01-2023 Ferritin [Mass/Vol] 90 ng/mL Normal 11-307 [facility] Comment on above: Performed By: #### C BCA, CMP, FEPR, 42111-9, 2777-1, 5193-8, 5196-1, 2276-4, 2731-8, 2132-9, 2284-8, 09841-1 #### [facility] ([id number]) [address] [facility] [address] [address], [address] [place] [address] Folate [Mass/Vol]on 10-01-19 24 FOLIC ACID >25.0 Normal >5.8 [facility] Comment on above: Result Comment: NEW REFERENCE RANGE Performed By: #### C BCA, CMP, FEPR, 97355-9, 7-1, 5193-8, 5196-1, 2276-4, 2731-8, 2132-9, 2284-8, 44770-3 #### [facility] ([id number]) [address] [address], [address] [place] [address] HBV surface Ab IA Qnon 10-01 Anti HBs quant. 164.94 mIU/mL Normal [facility] Comment on above: Result Comment: Vacc inated: >=12mIU/mL, Positive (Immune) Unvaccinated: <8mIU/mL, Negative (Not Immune) 8-11.99 mIU/mL: Indeterminate, (Considered Not Immune) Performed By: #### C BCA, CMP, FEPR, 69570-0, 2777-1, 5193-8, 5196-1, 2276-4, 2731-8, 2132-9, 2284-8, 01027-1 #### [facility] ([id number]) [address] [facility], [address] [place] [address] HBV surface Ag IA Qlon 10-01 HEPATITIS B SURF AG Negative Normal NEG [facility] Comment on above: Performed By: #### C BCA, CMP, FEPR, 64343-0, 7-1, 5193-8, 5196-1, 2276-4, 2731-8, 2132-9, 2284-8, 25016-4 #### [facility] ([id number]) [address] [place] [address], [address] [place] [address] IRON PROFILEon 10-01-2023 Iron [Mass/Vol] 66 ug/dL Normal 50-170 [facility] Comment on above: Performed By: #### C BCA, CMP, FEPR, 02330-1, 7-1, 3-8, 5196-1, 2276-4, 2731-8, 2132-9, 2284-8, 99954-9 #### [facility] ([id number]) [address] [place] [address], [address] [place] [address] IRON BINDING 206 ug/dL Low 250-425 [facility] Comment on above: Performed By: #### C BCA, CMP, FEPR, 06042-0, 2776-1, 3-8, 6-1, 2276-4, 2731-8, 2132-9, 2284-8, 21936-4 #### [facility] ([id number]) [address] [place] [address], [address] [place] [address] IRON SATURATION 32 % SATURATION Normal 15-50 [facility] Comment on above: Performed By: #### C BCA, CMP, FEPR, 15626-3, 2776-1, 3-8, 6-1, 2276-4, 2731-8, 2132-9, 2284-8, 74626-8 #### [facility] ([id number]) [address] [place] [address], [address] [place] [address] MAGNESIUMon 10-01-2023 Magnesium [Mass/Vol] 1.6 mg/dL Low 1.8-2.6 [facility] Comment on above: Performed By: #### C BCA, CMP, FEPR, 88432-7, 2776-1, 3-8, 5196-1, 2276-4, 2731-8, 2132-9, 2284-8, 03827-8 #### [facility] ([id number]) [address] [facility], [address] [place] [address] PHOSPHORUSon 10-01-2023 Phosphate [Mass/Vol] 3.5 mg/dL Normal 2.4-4.9 [facility] Comment on above: Performed By: #### C BCA, CMP, FEPR, 81227-3, 2777-1, 5193-8, 5196-1, 2276-4, 2731-8, 2132-9, 2284-8, 85225-1 #### [facility] ([id number]) [address] [facility], [address] [place] [address] Parathyrin.intact [Mass/Vol] on 10-01-2023 PTH INTACT 753 pg/mL High 12-88 [facility] Comment on above: Performed By: #### C BCA, CMP, FEPR, 08892-1, 2777-1, 5193-8, 5196-1, 2276-4, 2731-8, 2132-9, 2284-8, 73392-7 #### [facility] ([id number]) [address] [facility], [address] [place] [address] VITAMIN B12on 10-01-2023 Cobalamin (Vitamin B12) [Mass/Vol] 184 pg/mL Normal 180-914 [facility] Comment on above: Performed By: #### C BCA, CMP, FEPR, 06391-4, 2777-1, 5193-8, 5196-1, 2276-4, 2731-8, 2132-9, 2284-8, 79802-9 #### [facility] ([id number]) [address] [facility], [address] [place] [address] Vitamin D+Metabolites [Mass/ Vol]on 10-01-2023 VITAMIN D 25 HYD TOT 49.8 ng/mL Normal 30-100 [facility] Comment on above: Result Comment: Vitamin D status 25 [place] Vitamin D Deficiency <20 ng/mL Insufficiency 20-29 ng/mL Sufficiency 30-100 ng/mL Toxicity >100 ng/mL NOTE: A pediatric reference range has not been established by the sample collector of this kit. The [place] [employer] recommends a Vitamin D level of = or >20ng/mL in infants and children. Performed By: #### C BCA, CMP, FEPR, 33961-3, 2777-1, 5193-8, 5196-1, 2276-4, 2731-8, 2132-9, 2284-8, 03525-5 #### [facility] ([id number]) [address] [place] [address], [address] [place] [address] Physician Referralon 024 Physician Referral [phone] [id number] IFF Normal [facility] B-TYPE NATRIURETIC PEPTIDEon 09-04-2023 Natriuretic peptide B (Bld) [Mass/Vol] 27 pg/mL Normal 0-100 [facility] Comment on above: Performed By: #### L [id number] #### [facility] ([facility]) [address] [place] [address] BILIRUBIN, DIRECTon 09-04-20 Magnesium [Mass/Vol] 0.1 mg/dL Normal 0-0.2 [facility] Comment on above: Performed By: #### L [id number] #### [facility] ([facility]) [address] [place] [address] CBC WITH AUTO DIFFERENTIALon 09-04-2023 Basophils (Bld) [#/Vol] 0.03 10*3/uL Normal 0.00-0.20 [facility] Comment on above: Performed By: #### L [id number] ####[facility] ([facility])[address] [place] [address] Basophils/100 WBC (Bld) 0.6 % Normal 0.0-1.0 [facility] Comment on above: Performed By: #### L [id number] ####[facility] (BEAKER)[address] [place] [address] Eosinophils (Bld) [#/Vol] 0.05 10*3/uL Normal 0.00-0.50 [facility] Comment on above: Performed By: #### L [id number] ####[facility] ([facility])[address] [place] [address] Eosinophils/100 WBC (Bld) 1.0 % Normal 0.0-6.0 [facility] Comment on above: Performed By: #### L [id number] ####[facility] ([facility])[address] [place] [address] Erythrocyte distribution width (RBC) [Ratio] 13.3 % Normal 11.5-15.0 [facility] Comment on above: Performed By: #### L [id number] ####[facility] ([facility])[address] [place] [address] ERYTHROCYTE MEAN CORPUSCULAR HEMOGLOBIN CONCENTRATION (G/DL) BY AUTOMATED 32.4 g/dL Normal 32.0-35.0 [facility] Comment on above: Performed By: #### L [id number] ####[facility] (BEAKER)[address] [place] [address] Hematocrit (Bld) [Volume fraction] 37.0 % Normal 36.0-48.0 [facility] Comment on above: Performed By: #### L [id number] ####[facility] (BEAKER)[address] [place] [address] Hemoglobin (Bld) [Mass/Vol] 12.0 g/dL Normal 12.0-15.0 [facility] Comment on above: Performed By: #### L [id number] ####[facility] (BEAKER)[address] [place] [address] Immature granulocytes (Bld) [#/Vol] 0.02 10*3/uL Normal 0.00-0.20 [facility] Comment on above: Performed By: #### L [id number] ####[facility] ([facility])[address] [place] [address] Immature granulocytes/100 WBC (Bld) 0.4 % Normal 0.0-1.0 [facility] Comment on above: Performed By: #### L [id number] ####[facility] ([facility])[address] [place] [address] Lymphocytes (Bld) [#/Vol] 1.05 10*3/uL Low 1.20-4.00 [facility] Comment on above: Performed By: #### L [id number] ####[facility] ([facility])[address] [place] [address] Lymphocytes/100 WBC (Bld) 20.2 % Normal 20.0-45.0 [facility] Comment on above: Performed By: #### L [id number] ####[facility] ([facility])[address] [place] [address] MCH (RBC) [Entitic mass] 31.3 pg Normal 27.0-33.0 [facility] Comment on above: Performed By: #### L [id number] ####[facility] ([facility])[address] [place] [address] MCV (RBC) [Entitic vol] 96.6 fL Normal 82.0-98.0 [facility] Comment on above: Performed By: #### L [id number] ####[facility] ([facility])[address] [place] [address] Monocytes (Bld) [#/Vol] 0.45 10*3/uL Normal 0.10-1.00 [facility] Comment on above: Performed By: #### L [id number] ####[facility] ([facility]AKER)[address] [place] [address] Monocytes/100 WBC (Bld) 8.7 % Normal 5.0-12.0 [facility] Comment on above: Performed By: #### L [id number] ####[facility] ([facility])[address] [place] [address] Neutrophils (Bld) [#/Vol] 3.60 10*3/uL Normal 1.60-7.60 [facility] Comment on above: Performed By: #### L [id number] ####[facility] ([facility]AKER)[address] [place] [address] Neutrophils/100 WBC (Bld) 69.1 % Normal 40.0-72.0 [facility] Comment on above: Performed By: #### L [id number] ####[facility] [place] [address] NRBC (PER 100 WBCS) BY AUTOMATED COUNT 0.0 % Normal 0 [facility] Comment on above: Performed By: #### L [id number] ####[facility] ([facility])[address] [place] [address] PLATELETS (10*3/UL) IN BLOOD AUTOMATED COUNT 274 10*3/uL Normal 150-400 [facility] Comment on above: Performed By: #### L [id number] ####[facility] ([facility])[address] [place] [address] RBC (Bld) [#/Vol] 3.83 10*6/uL Normal 3.80-5.00 [facility] Comment on above: Performed By: #### L [id number] ####[facility] [place] [address] WBC (Bld) [#/Vol] 5.20 10*3/uL Normal 4.00-10.60 [facility] Comment on above: Performed By: #### L [id number] ####[facility] [place] [address] CMV IGMon 09-04-2023 CMV IGM <8.0 Normal <=29.9 [facility] Comment on above: Result Comment: INTE RPRETIVE INFORMATION: Cytomegalovirus Antibody, IgM 29.9 AU/mL or Less ....... Not Detected 30.0-34.9 AU/mL........... Indeterminate-Repeat testing in 10-14 days may be helpful. 35.0 AU/mL or Greater .... Detected-IgM antibody to CMV detected which may indicate a current or recent infection. However, low levels of IgM antibodies may occasionally persist for more than 12 months post-infection. A negative result does not rule out primary infection, please correlate clinically. CMV serology is not useful for the evaluation of active or reactivated infection in immunocompromised patients. Molecular diagnostic tests (i.e. PCR)are preferred in these cases. This test should not be used for blood donor screening, associated re-entry protocols, or for screening Human Cell, Tissues and Cellular and Tissue-Based Products (HCT/P). Performed By: [facility] [address] [place] [address] [employer]: Familia Rodriguez MD, PhD CLIA Number: [id number] Performed By: #### L [id number] ####[facility] ([place] [address] COMPREHENSIVE METABOLIC PANE [facility] 09-04-2023 Albumin [Mass/Vol] 4.5 g/dL Normal 3.5-5.7 [facility] Comment on above: Performed By: #### L [id number] ####[facility] ([facility])[address] [place] [address] ALP [Catalytic activity/Vol] 67 U/L Normal 34-104 [facility] Comment on above: Performed By: #### L [id number] ####[facility] ([facility])[address] [place] [address] ALT [Catalytic activity/Vol] 17 U/L Normal 7-52 [facility] Comment on above: Performed By: #### L [id number] ####[facility] ([facility])[address] [place] [address] Anion gap [Moles/Vol] 15 mmol/L Normal 7-20 [facility] Comment on above: Performed By: #### L [id number] ####[facility] ([facility])[address] [place] [address] AST [Catalytic activity/Vol] 19 U/L Normal 13-39 [facility] Comment on above: Performed By: #### L [id number] ####[facility] ([facility])[address], [place] [address] Bilirubin [Mass/Vol] 0.3 mg/dL Normal 0.3-1.0 [facility] Comment on above: Performed By: #### L [id number] ####[facility] ([facility])[address] [place] [address] Calcium [Mass/Vol] 9.5 mg/dL Normal 8.6-10.3 [facility] Comment on above: Performed By: #### L [id number] ####[facility] ([facility])[address] [place] [address] Chloride [Moles/Vol] 105 mmol/L Normal 98-107 [facility] Comment on above: Performed By: #### L [id number] ####[facility] ([facility])[address] [place] [address] CO2 [Moles/Vol] 25 mmol/L Normal 21-31 [facility] Comment on above: Performed By: #### L [id number] ####[facility] ([facility])[address] [place] [address] Creatinine [Mass/Vol] 4.71 mg/dL High 0.60-1.20 [facility] Comment on above: Performed By: #### L [id number] ####[facility] ([facility])[address] [place] [address] GLOMERULAR FILTRATION RATE ML/MIN/1.73 SQ M.PREDICTED 10.0 mL/min/1.73m*2 Low >60.0 [facility] Comment on above: Result Comment: The [facility]???s estimated glomerular filtration rate (eGFR) will no longer include consideration of race in its calculation. The National Kidney Foundation???s eGFR Task Force developed new recommendations for the estimation of the glomerular filtration rate in the [place] They recommend immediate implementation of the new equation refit without the race variable in all laboratories because the calculation does not include race. In addition to not including race in the calculation and reporting, it included diversity in its development, and has acceptable performance characteristics and potential consequences that do not disproportionately affect any one group of individuals. Performed By: #### L [id number] ####[facility] ([facility])[address] [place] [address] Glucose [Mass/Vol] 141 mg/dL High 70-100 [facility] Comment on above: Performed By: #### L [id number] ####[facility] ([facility])[address] [place] [address] Potassium [Moles/Vol] 3.8 mmol/L Normal 3.5-5.1 [facility] Comment on above: Performed By: #### L [id number] ####[facility] ([facility])[address] [place] [address] Protein [Mass/Vol] 6.4 g/dL Normal 6.0-8.3 [facility] Comment on above: Performed By: #### L [id number] ####[facility] ([facility])[address] [place] [address] Sodium [Moles/Vol] 141 mmol/L Normal 136-145 [facility] Comment on above: Performed By: #### L [id number] ####[facility] ([facility])[address] [place] [address] Urea nitrogen [Mass/Vol] 27 mg/dL High 7-25 [facility] Comment on above: Performed By: #### L [id number] ####[facility] ([facility])[address] [place] [address] UREA NITROGEN/CREATININE (MASS RATIO) IN SER/PLAS 5.7 Normal [facility] Comment on above: Performed By: #### L [id number] ####[facility] ([facility])[address] [place] [address] CREATININE, URINE, RANDOMon 09-04-2023 Creatinine (U) [Mass/Vol] 176.0 mg/dL Normal 26-299 [facility] Comment on above: Performed By: #### L [id number] #### [facility] ([place]) [address] [place] [address] CT ABDOMEN PELVIS WO RENAL R ECIPIENTon 09-04-2023 CT ABDOMEN PELVIS WO RENAL RECIPIENT CT ABDOMEN PELVIS WO RENAL RECIPIENT 09/04/2023 12:45 PM CLINICAL INDICATIONS: Transplant workup. Renal failure secondary to hypertension. Dialysis of May. TECHNIQUE: Multidetector CT axial slices were obtained without IV contrast. Multiplanar reformats, MIP, volume rendered 3-D images were generated on a separate workstation and reviewed to further define anatomy and possible pathology. All CT scans at this facility use dose modulation, iterative reconstruction, and/or weight based dosing when appropriate to reduce radiation dose to as low as reasonably achievable COMPARISON: None. FINDINGS: Lung bases show no acute findings No free air or free fluid Bladder unremarkable Peritoneal dialysis catheter is demonstrated Uterus and adnexa unremarkable Appendix and terminal ileum appropriate Grossly the liver gallbladder spleen pancreas adrenal glands show no acute findings Severe bilateral kidney atrophy Only minimal calcification at the origin of bilateral common iliac arteries without calcifications of the external iliac arteries. There are multiple cysts within the left kidney which are not well characterized without IV contrast. These could be benign or malignant. If desired these could be further characterized with contrast MRI No masses or adenopathy within the abdomen or pelvis Retrocardiac gastric hernia is noted IMPRESSION: Impression: *Symmetric bilateral common and external iliac arteries without significant calcium deposition *There are multiple cysts within the left kidney which are not well characterized without IV contrast. These could be benign or malignant. If desired these could be further characterized with contrast MRI Electronically signed: Chet Tirado. Normal [facility] CYTOMEGALOVIRUS ANTIBODY, IG Dominick 09-04-2023 CMV IGG <0.20 Normal <=0.70 [facility] Comment on above: Result Comment: INTE RPRETIVE INFORMATION: Cytomegalovirus Antibody, IgG 0.59 U/mL or less......... Not Detected 0.6 - 0.69 U/mL........... Indeterminate-Repeat testing in 10-14 days may be helpful. 0.70 U/mL or greater...... Detected In immunocompromised patients, CMV serology (IgG or IgM antibody titers) may not be reliable and may be misleading in the diagnosis of acute or reactivation CMV disease. The preferred method for diagnosis is culture of virus and/or demonstration of viral antigen in peripheral white cells (buffy coat), bronchoalveolar lavage (BAL) cells, or tissue biopsies. This test should not be used for blood donor screening, associated re-entry protocols, or for screening Human Cell, Tissues and Cellular and Tissue-Based Products (HCT/P). The best evidence for current infection is a significant change on two appropriately timed specimens, where both tests are done in the same laboratory at the same time. Performed By: [facility] [address] [place] [address] [employer]: Familia Rodriguez MD, PhD CLIA Number: [id number] Performed By: #### L [id number] ####[facility] [place] [address] CYTOMEGALOVIRUS IGG ANTIBODY 0.36 Normal <1.10 [facility] Comment on above: Result Comment: NORM AL RANGES: < OR = 0.90 NEGATIVE ; NO DETECTABLE IgG ANTIBODY TO CMV 0.91 - 1.09 EQUIVOCAL; REPEAT TESTING SUGGESTED > OR = 1.10 POSITIVE ; INDICATES PRESENCE OF DETECTABLE IgG ANTIBODY TO CMV Performed By: #### L [id number] ####[facility] ([facility])[address] [place] [address] Clinical Supporton 3 Clinical Support [id number] Ho Zambrano 1965 F Date Provider Department Center 09/04/2023 SARA CARTER None Family History Problem Relation Age of Onset Cancer Father Breast cancer Mother's Sister Breast cancer Cousin Family Status - Relation Status Age at Father Mother's Sister Cousin Alive Level of Service:49512 [place] OFFICE/OUTPATIENT NEW MODERATE MDM 45 MINUTES Reason for Visit and Comments: Kidney Transplant [[id number]] - Evaluation Normal [facility] ANNETTA-CASTANO VIRUS VCA ANTIB DEEPAK PANELon 09-04-2023 ANNETTA-CASTANO VCA IGG 2.05 High <1.10 [facility] Comment on above: Order Comment: Consi stent with past EBV infection. Performed By: #### L [id number] #### [facility] ([facility]) [address] [place] [address] ANNETTA-CASTANO VCA IGM 0.32 Normal <1.10 [facility] Comment on above: Order Comment: Consi stent with past EBV infection. Result Comment: NORM AL RANGES: < OR = 0.90 NEGATIVE ; NO DETECTABLE IgG/IgM ANTIBODY TO EBV-VCA 0.91 - 1.09 EQUIVOCAL; REPEAT TESTING SUGGESTED > OR = 1.10 POSITIVE ; INDICATES PRESENCE OF DETECTABLE IgG/IgM ANTIBODY TO EBV Performed By: #### L [id number] #### [facility] ([facility]) [address] [place] [address] HEMOGLOBIN A1Con 09-04-2023 Glucose [Mass/Vol] 108 mg/dL Normal [facility] Comment on above: Performed By: #### L [id number] #### [facility] ([facility]) [address] [place] [address] HbA1c (Bld) [Mass fraction] 5.4 % Normal 4.0-6.0 [facility] Comment on above: Performed By: #### L [id number] #### [facility] ([facility]) [address] [place] [address] HEPATITIS A ANTIBODY, IGMon 09-04-2023 HEPATITIS A VIRUS IGM AB PRESENCE IN SER/PLAS Non-Reactive Normal Nonreactive [facility] Comment on above: Performed By: #### L [id number] #### [facility] ([facility]) [address] [place] [address] HEPATITIS B CORE ANTIBODY, I GMon 09-04-2023 HEPATITIS B VIRUS CORE IGM AB PRESENCE IN SER/PLAS BY IMMUNOASSY Negative Normal Negative [facility] Comment on above: Result Comment: INTE RPRETIVE INFORMATION: Hepatitis B Core Ab, IgM This assay should not be used for blood donor screening, associated re-entry protocols, or for screening Human Cells, Tissues and Cellular and Tissue-Based Products (HCT/P). Performed By: [facility] [address] [place] [address] [employer]: Familia Rodriguez MD, PhD CLIA Number: [id number] Performed By: #### L [id number] #### [facility] ([facility]) [address] [place] [address] HEPATITIS B CORE ANTIBODY, T OTALon 09-04-2023 HEPATITIS B VIRUS CORE AB (PRESENCE) IN SER/PLAS BY IMM Non-Reactive Normal Nonreactive [facility] Comment on above: Performed By: #### L [id number] #### [facility] ([facility]) [address] [place] [address] HEPATITIS B SURFACE ANTIBODY QUANTon 09-04-2023 HEPATITIS B VIRUS SURFACE AB (MIU/ML) IN SERUM 309.77 mIU/mL Normal [facility] Comment on above: Result Comment: INTE RPRETATION: NONREACTIVE<8.00 mIU/mL INDETERMINATE8.00 - 12.00 mIU/mL REACTIVE>12 mIU/mL Performed By: #### L [id number] ####[facility] ([facility])[address] [place] [address] HEPATITIS B SURFACE ANTIGENo n 09-04-2023 HEPATITIS B VIRUS SURFACE AG PRESENCE IN SERUM Non-Reactive Normal Nonreactive [facility] Comment on above: Performed By: #### L [id number] #### [facility] ([facility]) [address] [place] [address] HEPATITIS C ANTIBODYon 09-04 HEPATITIS C VIRUS AB PRESENCE IN SERUM Non-Reactive Normal Nonreactive [facility] Comment on above: Performed By: #### L [id number] #### [facility] ([facility]) [address] [place] [address] HIV COMBO 4Gon 09-04-2023 HIV COMBO 4G Negative Normal Negative [facility] Comment on above: Performed By: #### L [id number] #### [facility] ([facility]) [address] [place] [address] HLA ABC CLASS I TYPINGon A*-1 2 [facility] Comment on above: Performed By: #### L [id number] ####[facility] ([facility])[address] [place] [address] [place] A*-2 3 [facility] Comment on above: Performed By: #### L [id number] ####[facility]UE [facility]YPING ([facility])[address] [place] [address] [place] B*-1 35 [facility] [facility] Comment on above: Performed By: #### L [id number] ####[facility] TISSUE TYPING (HISTOTRAC)[address] [place] [address] [place] B*-2 60 [facility] Comment on above: Performed By: #### L [id number] ####[facility] TISSUE TYPING (HISTOTRAC)[address] [place] [address] [place] BW*-1 6 [facility] Comment on above: Performed By: #### L [id number] ####[facility] TISSUE TYPING (HISTOTRAC)[address] [place] [address] [place] C*-1 10 [facility] Comment on above: Performed By: #### L [id number] ####[facility] TISSUE TYPING (HISTOTRAC)[address] [place] [address] [place] C*-2 4 [facility] Comment on above: Performed By: #### L [id number] ####[facility] TISSUE TYPING (HISTOTRAC)[address] [place] [address] [facility] HLA ABC CLASS I TYPING TEST METHOD Class I typing by PCR-SSOP [facility] Comment on above: Performed By: #### L [id number] ####[facility] TISSUE TYPING (HISTOTRAC)[address] [place] [address] [facility] HLA ABC TESTED DATE [id number] [facility] Comment on above: Performed By: #### L [id number] ####[facility] TISSUE TYPING (HISTOTRAC)[address] [place] [address] [facility] HLA DR CLASS II TYPINGon DPB1*-1 04:01 [facility] Comment on above: Performed By: #### L [id number] ####[facility] TISSUE TYPING (HISTOTRAC)[address] [place] [address] [place] DPB1*-2 04:02 [facility] Comment on above: Performed By: #### L [id number] ####[facility] TISSUE TYPING (HISTOTRAC)[address] [place] [address] [place] DQA1*-1 01 [facility] Comment on above: Performed By: #### L [id number] ####[facility] TISSUE TYPING (HISTOTRAC)[address] [place] [address] [place] DQA1*-2 03 [facility] Comment on above: Performed By: #### L [id number] ####[facility] TISSUE TYPING (HISTOTRAC)[address] [place] [address] [place] DQB1*-1 7 [facility] Comment on above: Performed By: #### L [id number] ####[facility] TISSUE TYPING (HISTOTRAC)[address] [place] [address] [place] DQB1*-2 5 [facility] Comment on above: Performed By: #### L [id number] ####[facility] TISSUE TYPING (HISTOTRAC)[address] [place] [address] [place] DRB1*-1 1 [facility] Comment on above: Performed By: #### L [id number] ####[facility] TISSUE TYPING (HISTOTRAC)[address] [place] [address] [place] DRB1*-2 4 [facility] Comment on above: Performed By: #### L [id number] ####[facility] TISSUE TYPING (HISTOTRAC)[address] [place] [address] [place] DRB4*-1 53 [facility] Comment on above: Performed By: #### L [id number] ####[facility] TISSUE TYPING (HISTOTRAC)[address] [place] [address] CLASS II TYPING TEST METHOD Class II typing by PCR-SSOP [facility] Comment on above: Performed By: #### L [id number] ####[facility] TISSUE TYPING (HISTOTRAC)[address] [place] [address] [facility] HLA DR TESTED DATE [id number] [facility] Comment on above: Performed By: #### L [id number] ####[facility] TISSUE TYPING (HISTOTRAC)[address] SIGNED BY Signed by Sara torres CHT([facility]) MT[facility] Traveler Changer Transplant Immunology Normal [facility] Comment on above: Performed By: #### L [id number] ####[facility] TISSUE TYPING (HISTOTRAC)[address] [place], [place] [address] Result Comment: Clas s I Antigen Microbeads Performed By: #### L [id number] ####[facility] TISSUE TYPING (HISTOTRAC)[address] [place], [place] [address] Performed By: #### L [id number] ####[facility] TISSUE TYPING (HISTOTRAC)[address] [place], [place] [address] Performed By: #### L [id number] ####[facility] TISSUE TYPING (HISTOTRAC)[address] [place] [address] [facility] LIPID PANELon 09-04-2023 CHOL/HDL 2.8 mg/dL Normal [facility] Comment on above: Performed By: #### L [id number] ####[facility] HOSPITAL LAB (BEAKER)[address] [place] [address] Cholesterol [Mass/Vol] 123 mg/dL Normal 120-200 [facility] Comment on above: Performed By: #### L [id number] ####[facility] HOSPITAL LAB (BEAKER)[address] [place] [address] Magnesium [Mass/Vol] 256 mg/dL High 40-149 [facility] Comment on above: Result Comment: TRIG LYCERIDE REFERENCE RANGE: 20 YEARS AND OLDER CARDIOVASCULAR RISK LESS THAN 150 mg/dL LOW RISK 150 TO 199 mg/dL BORDERLINE RISK 200 mg/dL AND GREATER HIGH RISK Performed By: #### L [id number] ####[facility] HOSPITAL LAB (BEAKER)[address] [place] [address] Magnesium [Mass/Vol] 28 mg/dL Normal 0-160 [facility] Comment on above: Performed By: #### L [id number] ####[facility] ([facility])[address] [place] [address] Magnesium [Mass/Vol] 44 mg/dL Normal 23-92 [facility] Comment on above: Performed By: #### L [id number] ####[facility] ([facility])[address] [place] [address] NON HDL CHOL. (LDL+VLDL) 79 Normal [facility] Comment on above: Performed By: #### L [id number] ####[facility] ([facility])[address] [place] [address] TOTAL VLDL-C 51 mg/dL High 0-40 [facility] Comment on above: Performed By: #### L [id number] ####[facility] ([facility])[address] [place] [address] MUMPS ANTIBODY, IGGon 2022 MUMPS IGG ANTIBODY 1.32 [facility] Comment on above: Result Comment: NORM AL RANGES: < OR = 0.90 NEGATIVE ; NO DETECTABLE IgG ANTIBODY TO MUMPS 0.91 - 1.09 EQUIVOCAL; REPEAT TESTING SUGGESTED > OR = 1.10 POSITIVE ; INDICATES PRESENCE OF DETECTABLE IgG ANTIBODY TO MUMPS Performed By: #### L [id number] #### [facility] ([facility]) [address] [place] [address] PANEL REACTIVE ANTIBODYon HOLD SPECIMEN Hold for add-ons. Normal [facility] Comment on above: Result Comment: Auto resulted. Performed By: #### L [id number] #### [facility] TISSUE TYPING (HISTOTRAC) [address] [place] [address] [place] PROTEIN, URINE, RANDOMon Protein (U) [Mass/Vol] 489.7 mg/dL Normal [facility] Comment on above: Result Comment: Ther e are no established reference values for random urine specimens. Performed By: #### L [id number] #### [facility] ([facility]) [address] [place] [address] PROTIME-INRon 09-04-2023 INR IN PPP BY COAGULATION ASSAY 1.01 Normal 0.90-1.10 [facility] Comment on above: Result Comment: [facility] FOR WARFARIN THERAPY CONDITION INR PROPHYLAXIS OF VENOUS THROMBOSIS 2-3 (HIGH-RISK SURGERY) TREATMENT OF VENOUS THROMBOSIS 2-3 TREATMENT OF PULMONARY EMBOLISM 2-3 PREVENTION OF SYSTEMIC EMBOLISM: 2-3 ACUTE MYOCARDIAL INFARCTION TISSUE HEART VALVES VALVULAR HEART DISEASE ATRIAL FIBRILLATION RECURRENT SYSTEMIC EMBOLISM MECHANICAL HEART VALVE 2.5-3.5 FROM: ORAL ANTICOAGULANTS. MECHANISM OF ACTION, CLINICAL EFFECTIVENESS, AND OPTIMAL THERAPEUTIC RANGE. CHEST 1995;108:231S-246S. Performed By: #### L [id number] #### [facility] ([facility]) [address] [place] [address] PROTHROMBIN TIME (PT) IN PPP BY COAGULATION ASSAY 13.3 Seconds Normal 12.3-14.8 [facility] Comment on above: Performed By: #### L [id number] #### [facility] ([facility]) [address] [facility] [place] [address] QUANTIFERON TB GOLDon 2022 MITOGEN MINUS NIL >10.00 Normal [facility] Comment on above: Performed By: #### L [id number] ####[facility] ([facility])[address] [place] [address] NIL 0.03 IU/mL Normal [facility] Comment on above: Performed By: #### L [id number] ####[facility] ([facility])[address] [place] [address] QUANTIFERON - TB GOLD TEST Negative Normal Negative [facility] Comment on above: Result Comment: Stevan tiferon TB Gold Interpretation (IU/mL): NEGATIVE: M. tuberculosis infection not likely. Nil: <=8.0 TB1 Antigen minus Nil ([id number]-IRB): <0.35 OR >=0.35; and <25% of Nil value. TB2 Antigen minus Nil (ZT2LP-FQC): <0.35 OR >=0.35; and <25% of Nil value. Performed By: #### L [id number] ####[facility] ([facility])[address] [place] [address] TB1 AG 0.03 IU/mL Normal [facility] Comment on above: Performed By: #### L [id number] ####[facility] ([facility])[address] [place] [address] TB1 AG MINUS NIL 0.00 IU/mL Normal [facility] Comment on above: Performed By: #### L [id number] ####[facility] ([facility])[address] [place] [address] TB2 AG 0.02 IU/mL Normal [facility] Comment on above: Performed By: #### L [id number] ####[facility] ([facility])[address] [place] [address] TB2 AG MINUS NIL -0.01 IU/mL Normal [facility] Comment on above: Performed By: #### L [id number] ####[facility] ([facility])[address] [place] [address] RUBELLA ANTIBODY, IGGon 08-24 RUBELLA VIRUS IGG AB (IU/ML) IN SERUM 3.45 Normal [facility] Comment on above: Result Comment: NORM AL RANGES: < OR = 0.90 NEGATIVE ; NO DETECTABLE IgG ANTIBODY TO RUBELLA 0.91 - 1.09 EQUIVOCAL; REPEAT TESTING SUGGESTED > OR = 1.10 POSITIVE ; INDICATES PRESENCE OF DETECTABLE IgG ANTIBODY TO RUBELLA VIRUS Performed By: #### L [id number] ####[facility] (BEAKER)[address] [place] [address] RUBEOLA ANTIBODY IGGon 09-04 RUBEOLA IGG ANTIBODY 4.98 Normal [facility] Comment on above: Result Comment: NORM AL RANGES: < OR = 0.90 NEGATIVE ; NO DETECTABLE IgG ANTIBODY TO RUBEOLA 0.91 - 1.09 EQUIVOCAL; REPEAT TESTING SUGGESTED > OR = 1.10 POSITIVE ; INDICATES PRESENCE OF DETECTABLE IgG ANTIBODY TO RUBEOLA Performed By: #### L [id number] ####[facility] ([place])[address] [place] [address] SINGLE ANTIGEN CLASS Ion AB SCREEN COMMENTS No Specificites Found [facility] Comment on above: Performed By: #### L [id number] ####[facility] TISSUE TYPING (HISTOTRAC)[address] [place] [address] [place] Performed By: #### L [id number] ####[facility] TISSUE TYPING (HISTOTRAC)[address] [place] [address] [place] CLASS I TESTED DATE Normal [facility] Comment on above: Performed By: #### L [id number] ####[facility] TISSUE TYPING (HISTOTRAC)[address] [place] [address] [place] CPRA 0 Normal [facility] Comment on above: Performed By: #### L [id number] ####[facility] TISSUE TYPING (HISTOTRAC)[address] [place] [address] [place] Performed By: #### L [id number] ####[facility] TISSUE TYPING (HISTOTRAC)[address] [place] [address] [place] SINGLE ANTIGEN CLASS 1 TEST METHOD Class I Single Antigen [facility] Comment on above: Performed By: #### L [id number] ####[facility] TISSUE TYPING (HISTOTRAC)[address] [place] [address] [place] SINGLE ANTIGEN CLASS IIon CLASS II TESTED DATE [facility] Comment on above: Performed By: #### L [id number] ####[facility] TISSUE TYPING (HISTOTRAC)[address] [place] [address] [place] SINGLE ANTIGEN CLASS 2 TEST METHOD Class II Single Antigen Normal [facility] Comment on above: Result Comment: Clas s II Antigen Microbeads Performed By: #### L [id number] ####[facility] TISSUE TYPING (HISTOTRAC)[address] [place] [address] [place] TYPE AND SCREENon 09-04-2023 AB SCREEN Negative Normal [facility] Comment on above: Performed By: #### L [id number] ####[facility] BLOOD BANK, ABO group Nom (Bld) B Normal [facility] Comment on above: Performed By: #### L [id number] ####[facility] BLOOD BANK, RH TYPE IN BLOOD Positive Normal [facility] Comment on above: Performed By: #### L [id number] ####[facility] BLOOD BANK, URINALYSIS WITH MICROSCOPICo n 09-04-2023 BILIRUBIN, TOTAL PRESENCE IN URINE Negative Normal Negative [facility] Comment on above: Performed By: #### L [id number] ####[facility] HOSPITAL LAB (BEAKER)[address] [place] [address] Clarity (U) Cloudy Abnormal Clear [facility] Comment on above: Performed By: #### L [id number] ####[facility] HOSPITAL LAB (BEAKER)[address] [place] [address] Color (U) Camila Abnormal Yellow [facility] Comment on above: Performed By: #### L [id number] ####[facility] HOSPITAL LAB (BEAKER)[address] [place] [address] Glucose (U) [Mass/Vol] Negative Normal Negative [facility] Comment on above: Performed By: #### L [id number] ####[facility] HOSPITAL LAB (BEAKER)[address] [place] [address] HEMOGLOBIN PRESENCE IN URINE Negative Normal Negative [facility] Comment on above: Performed By: #### L [id number] ####[facility] HOSPITAL LAB (BEAKER)[address] [place] [address] Ketones Ql (U) Negative Normal Negative [facility] Comment on above: Performed By: #### L [id number] ####[facility] ([facility])[address] [place] [address] LEUKOCYTE ESTERASE PRESENCE IN URINE BY TEST STRIP Large Abnormal Negative [facility] Comment on above: Performed By: #### L [id number] ####[facility] ([facility])[address] [place] [address] NITRITE PRESENCE IN URINE Negative Normal Negative [facility] Comment on above: Performed By: #### L [id number] ####[facility] ([facility])[address] [place] [address] pH (U) 5.0 [pH] Normal 5.0-8.0 [facility] Comment on above: Performed By: #### L [id number] ####[facility] ([facility])[address] [place] [address] Protein (U) [Mass/Vol] mg/dL Abnormal Negative [facility] Comment on above: Performed By: #### L [id number] ####[facility] ([facility])[address] [place] [address] RBC (#/HPF) IN URINE SEDIMENT 3-5 Abnormal None Seen [facility] Comment on above: Performed By: #### L [id number] ####[facility] ([facility])[address] [place] [address] Specific gravity (U) [Rel density] 1.015 Normal 1.015-1.020 [facility] Comment on above: Performed By: #### L [id number] ####[facility] ([facility])[address] [place] [address] SQUAMOUS EPITHELIAL CELLS (#/HPF) IN URINE SEDIMENT Many Abnormal None Seen, Occasional [facility] Comment on above: Performed By: #### L [id number] ####[facility] ([facility])[address] [place] [address] WBC (LEUKOCYTE) (#/HPF) IN URINE SEDIMENT >100 Abnormal None Seen [facility] Comment on above: Performed By: #### L [id number] ####[facility] (BEAKER)[address] [place] [address] VARICELLA ZOSTER ANTIBODY, I GGon 09-04-2023 VARICELLA ZOSTER IGG 2.52 Normal [facility] Comment on above: Result Comment: NORM AL RANGES: < OR = 0.90 NEGATIVE ; NO DETECTABLE IgG ANTIBODY TO VARICELLA-ZOSTER VIRUS 0.91 - 1.09 EQUIVOCAL; REPEAT TESTING SUGGESTED > OR = 1.10 POSITIVE ; INDICATES PRESENCE OF DETECTABLE IgG ANTIBODY TO VARICELLA-ZOSTER VIRUS Performed By: #### L [id number] #### [facility] [address] [place] [address] H PYLORI TISSUEon 12-21-2017 H PYL TISSUE, UREASE Negative Normal NEGATIVE [facility] Comment on above: Performed By: #### H PYLT ####[facility] [address] [place], [place] [address]UqaakkJoe Gee OPERATIVE NOTEon 12-21-2017 OPERATIVE NOTE OPERATIVE NOTEOPERAT ION DATE: 5-99-50OSKLRWJWEA:Verse d 2 mg, topical Cetacaine spray.INDICATIONS: Dysphagia.PREOPERATIVE DIAGNOSIS: Rule-out esophageal cancer.POSTOPERATIVE DIAGNOSIS: Acute gastritis, prepyloric area.PROCEDURE NAME:EGD.Photo documentation obtained.Biopsies x2, one for H. Pylori, one for permanent slides.Moderate bleeding post procedure. Further biopsies were not done due to mildbleeding post procedure.RECOMMENDATIO N:1. Await biopsy results.2. Avoid antiinflammatories and aspirin.3. Omeprazole 20 mg twice a day.PROCEDURE: White female gave informed. Placed in the left lateral decubitusposition. Topical Cetacaine spray had been applied previously. The scope waspassed on first attempt, passed the cricopharyngeus proximal mid esophagus. Thedistal esophagus appeared to be normal. The prepyloric area had streakedinflammatory changes, diffuse in nature, shallow, with no active bleeding, noactive polyps. The pyloric channel was narrow but opened without inflammationor ulcers. The duodenal bulb and second portion of the duodenum were symmetricwithout masses or lesions. Withdrawing the scope under direct vision theseareas were carefully visualized, biopsies were taken x2, one for H. Pylori, onefor permanent slides. Retroflexion of the scope failed to reveal anysignificant abnormalities. No evidence of varices, no evidence of masses.Withdrawing the scope under direct vision these areas were carefully visualized, esophageal motility appeared to be normal. Vocal cords were symmetricalwithout polyps or masses. The patient tolerated the procedure relatively well.Vital signs remained stable throughout. The patient was on 2 liters of nasalcannula during the procedure. No significant fluctuations in heart rate orblood pressure pre or postop. Normal [facility] CT ABD/PELVIS WO CONon 11-08 CT ABD/PELVIS WO CON [address] [place] [address] Patient: MULU ZAMBRANO Exam Date: 11/08/2017DOB: 1965 Gender:F : DR DAHLIA Masters Admission #: [id number] : DR JONATHON LEE Order #: [id number] HERE TO VIEW EXAM RADIOLOGY REPORT PROCEDURE: CT ABDOMEN AND PELVIS WITHOUT CONTRAST COMPARISON: None. INDICATIONS: Chronic hematuria and urinary tract infections TECHNIQUE: Axial, Coronal, and Sagittal CT images of the abdomen and pelvis were created without IV contrast material.DOSE: 631mGycm FINDINGS: KIDNEY - RIGHT: Mild atrophy. 1.6 cm cyst. No calcification, hydronephrosis, or obstruction. URETER - RIGHT: No calcifications or abnormal dilation. KIDNEY - LEFT: Mild atrophy. 2.3 cm cyst. No calcification, hydronephrosis, or obstruction. URETER - LEFT: No calcifications or abnormal dilation. URINARY BLADDER: No calculus, visible focal wall thickening, or lesion. LUNG BASES: No visible pulmonary or pleural disease. LIVER: No enlargement, atrophy, abnormal density, or significant focal lesion. BILIARY: No visible dilatation or calcification. PANCREAS: No lesion, fluid collection, ductal dilatation, or atrophy. SPLEEN: No enlargement or focal lesion. ADRENALS: No mass or enlargement. BOWEL/MESENTERY: No visible mass, obstruction, or bowel wall thickening. Normal appendix.AORTA/VASCULAR : No aneurysm. RETROPERITONEUM: No mass or adenopathy. LYMPH NODES: No adenopathy. PELVIC ORGANS: No visible mass. Pelvic organs appropriate for patient age. ABDOMINAL WALL: No mass or hernia. BONES: No bony lesion or fracture. OTHER: Negative. CONCLUSION: 1. Evaluation of the kidneys and urinary bladder is slightly limited due to lack of intravenous contrast. No urinary tract calculi, mass, obstructive uropathy, or suspicious findings. Dictated by: Marvel Nicolas M.D. on 11/08/2017 at 17:04 Approved by: Marvel Nicolas M.D. on 11/08/2017 at 17:17 Normal [facility] PROF CHEM 8 (BAS METB)on Anion gap 17.0 mmol/L Normal [facility] Comment on above: Performed By: #### B MP ####[facility] [address] [place] BUN/Creatinine Ratio 15.4 mg/mg Normal [facility] Comment on above: Performed By: #### B MP ####[facility] [address] [place] [address] [place] Calcium 9.6 mg/dL Normal 8.4-10.2 [facility] Comment on above: Performed By: #### B MP ####[facility] [address] [place] Chloride 105 mmol/L Normal 98-107 [facility] Comment on above: Performed By: #### B MP ####[facility] [address] [place] CO2 21.0 mmol/L Critically low 22.0-30.0 [facility] Comment on above: Performed By: #### B MP ####[facility] [address] [place] Creatinine 3.00 mg/dL Critically high 0.52-1.04 [facility] Comment on above: Performed By: #### B MP ####[facility] [address] [place] eGFR (non-black) 16 mL/min/{1.73_m2} Critically low >=60 [facility] Comment on above: Performed By: #### B MP ####[facility] [address] [place], [place] [address]Kzdlsk [place] eGFR (non-black) 20 mL/min/{1.73_m2} Critically low >=60 [facility] Comment on above: Performed By: #### B MP ####[facility] [address] [place], [place] [address]Ouienp [place] Glucose mass conc 97 mg/dL Normal 74-106 [facility] Comment on above: Performed By: #### B MP ####[facility] [address] [place], [place] [address]Cychxr [place] Potassium molar conc 4.9 mmol/L Normal 3.4-5.[address] [facility] Comment on above: Performed By: #### B MP ####[facility] [address] [place], [place] [address]Otsjhg [place] Sodium 138 mmol/L Normal 137-145 [facility] Comment on above: Performed By: #### B MP ####[facility] [address] [place], [place] [address]Iotctt [place] Urea nitrogen 46.0 mg/dL Critically high 7.0-17.0 [facility] Comment on above: Performed By: #### B MP ####[facility] [address] [place], [place] [address]Butmeo [place] Vital Signs Date Time Vital Sign Value Performing Clinician Hetal sepulveda 10-10-2023 14:21-0500 Blood Pressure Location Quinton ZUNIGA [facility] [place] 10-10-2023 14:21-0500 Diastolic blood pressure 90 mm[Hg] Quinton ZUNIGA [facility] [place] 10-10-2023 14:21-0500 Heart rate 76 /min Quinton ZUNIGA [facility] [place] 10-10-2023 14:21-0500 Respiratory rate 16 /min Quinton ZUNIGA [facility] [place] 10-10-2023 14:21-0500 Systolic blood pressure 128 mm[Hg] Quinton ZUNIGA General Surgery [place] Encounters Encounter Date Encounter Type Care Provider Facility Start: 11-09-2023 End: 11-10-2023 ambulatory JONATHON LEE [facility] Start: 11-07-2023 ambulatory [facility] Start: 11-07-2023 Encounter for preprocedural cardiovascular examination [facility] Start: 11-07-2023 End: 11-08-2023 ambulatory [facility] Start: 10-10-2023 End: 10-11-2023 ambulatory JONATHON LEE Facility:[facility] Start: 10-10-2023 End: 10-10-2023 Patient encounter procedure Quinton ZUNIGA General [facility] Start: 10-02-2023 End: 10-03-2023 ambulatory JONATHON LEE [facility] Start: 10-01-2023 End: 10-02-2023 ambulatory JONATHON LEE [facility] Start: 09-27-2023 ambulatory JONATHON LEE Facility :[facility] ([facility] Start: 09-04-2023 End: 09-05-2023 ambulatory [facility] Start: 09-04-2023 End: 09-04-2023 ambulatory [facility] Start: 09-04-2023 ambulatory [facility] Start: 09-04-2023 Encounter for other preprocedural examination SARA [facility] Start: 12-21-2017 End: 12-21-2017 Ambulatory JONATHON LEE Facility:[facility] Start: 11-08-2017 End: 11-09-2017 Ambulatory DAHLIA DRIVER JR Facility:[facility] Procedures Date Procedure Procedure Detail Performing Clinician Start: 11-15-2017 Cystourethroscopy with dilation of urethral stricture Quinton ZUNIGA Start: 12-16-2015 Colonoscopy Quinton ZUNIGA Continuous ambulator y peritoneal dialysis Quinton ZUNIGA Esophagogastroduodenoscopy M prince ZUNIGA Immunizations Immunization Date Immunization Notes Care Provider Fa cility 06-06-2022 SARS-CoV-2 (COVID-19 ) [id number] Quinton ZUNIGA [facility] [place] 08-29-2021 SARS-CoV-2 (COVID-19 ) mRNA BNT-162b2 vax Quinton LOPEZL General Surgery [place] 01-09-2021 SARS-CoV-2 (COVID-19 ) mRNA BNT-162b2 vax Quinton LOPEZL General [facility] [place] 12-20-2020 SARS-CoV-2 (COVID-19 ) mRNA BNT-162b2 vax Quinton LOPEZL [facility] [place] Payers Date Payer Category Payer Unknown [id number] 2021 Medicare [id number] 1965 Unknown [id number] [id number] 1965 Unknown [id number] [id number] [id number] 1965 Unknown [id number] 2.16.8 [id number] 1965 Unknown [id number] 2.16.84 [id number] 1965 Unknown [id number] 2.16.84 [id number] 1961 Unknown [id number] Social History Date Type Detail Facility Start: 10-10-2023 Tobacco smoking status Never s moked tobacco (finding) General [facility] [place] Tobacco smoking status Never Gener al Surgery [facility] Sex Assigned At Female [facility] Functional Status Date Assessment Result Facility 10-10-2023 Functional Status N/A [facility] 04-17-2023 to 11-07-2023 Note Date & Type Note Facility 11-07-2023 Note [place] [facility] Subjective Mulu Zambrano is a 58 y.o. year old female patient being seen for Cardiac evaluation for Renal Transplant (CREDIT RISK MODELER with stress and echo today. ) Patient Active Problem List Diagnosis Metatarsus adductus Osteoarthritis CKD (chronic kidney disease) stage 5, GFR less than 15 ml/min ([facility]) Migraines Vitamin D deficiency Secondary hyperparathyroidism of renal origin ([facility]) Hypertensive disorder Hyperlipidemia ESRD (end stage renal disease) on dialysis ([facility]) Family History Problem Relation Name Age of Onset Cancer Father Donaldo Breast cancer Mother's Sister Breast cancer Cousin Social History Tobacco Use Smoking status: Never Smokeless tobacco: Never Vaping Use Vaping Use: Never used Substance Use Topics Alcohol use: Yes Comment: Occasional Drug use: Never HPI Mulu Zambrano is seen as a new patient for cardiac evaluation for possible renal transplant, referred by Nancy. She is a 58 year old female with chronic renal failure ESRD secondary to biopsy-proven hypertensive nephrosclerosis and chronic interstitial nephritis. She initiated dialysis 05/2023 and currently dialysis via daily PD. 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 She does not have any history of DVT/PE/clotting events. She is not on any anticoagulation. she denies chest pain, palpitations, dizziness, syncope and leg edema. she does not exercise much due to limitation from her foot. There is no claudication. She gets shortness of breath on moderate to severe exertion. Review of Systems Constitutional: Negative. HENT: Negative. Eyes: Negative. Cardiovascular: Negative. Respiratory: Negative. Hematologic/Lymphatic: Bruises/bleeds easily. Skin: Negative. Musculoskeletal: Positive for back pain, joint pain and muscle weakness. Psychiatric/Behavioral: Negative for depression. Objective Visit Vitals BP 124/81 (BP Location: Left arm, Patient Position: Sitting, BP Cuff Size: Adult) Pulse 97 Ht 1.524 m (5') Wt 72.3 kg (159 lb 6.4 oz) SpO2 99% BMI 31.13 kg/m??? Smoking Status Never BSA 1.75 m??? Physical Exam Constitutional: Appearance: She is well-developed. She is obese. She is not ill-appearing. HENT: Head: Normocephalic and atraumatic. Nose: Nose normal. Eyes: General: No scleral icterus. Pupils: Pupils are equal, round, and reactive to light. Neck: Thyroid: No thyromegaly. Vascular: No JVD. Cardiovascular: Rate and Rhythm: Normal rate and regular rhythm. Pulses: Radial pulses are 2+ on the right side and 2+ on the left side. Heart sounds: Normal heart sounds. No murmur heard. No friction rub. No gallop. Pulmonary: Effort: Pulmonary effort is normal. No respiratory distress. Breath sounds: Normal breath sounds. No wheezing or rales. Chest: Chest wall: No tenderness. Abdominal: General: Bowel sounds are normal. There is no distension. Palpations: Abdomen is soft. Tenderness: There is no abdominal tenderness. Comments: PD catheter Musculoskeletal: General: No swelling. Cervical back: Neck supple. Skin: General: Skin is warm and dry. Neurological: General: No focal deficit present. Mental Status: She is alert and oriented to person, place, and time. Psychiatric: Mood and Affect: Mood normal. Behavior: Behavior is cooperative. Judgment: Judgment normal. Allergies No Known Allergies Medications Current Outpatient Medications: ascorbic acid (Vitamin C) 500 mg tablet, Take 500 mg by mouth in the morning., Disp: , Rfl: calcium acetate (Phoslo) 667 mg capsule, Take 1,334 mg by mouth in the morning, at noon, and at bedtime., Disp: , Rfl: cholecalciferol (Vitamin D3) 25 MCG (1000 units) tablet, Take 2,000 Units by mouth in the morning., Disp: , Rfl: Dialyvite 100-1 mg tablet, Take 1 tablet by mouth in the morning., Disp: , Rfl: dilTIAZem CD (Cardizem CD) 240 mg 24 hr capsule, Take 180 mg by mouth in the morning., Disp: , Rfl: docusate sodium (Colace) 50 mg capsule, Take 50 mg by mouth in the morning and at bedtime. 1 tablet in AM and 2 tablets pm, Disp: , Rfl: gabapentin (Neurontin) 300 mg capsule, Take 300 mg by mouth at bedtime., Disp: , Rfl: losartan (Cozaar) 25 mg tablet, Take 25 mg by mouth in the morning., Disp: , Rfl: magnesium oxide (Mag-Ox) 400 mg tablet, 400 mg in the morning., Disp: , Rfl: melatonin 10 mg tablet, Take 10 mg by mouth at bedtime., Disp: , Rfl: pantoprazole (ProtoNix) 40 mg EC tablet, Take 40 mg by mouth in the morning., Disp: , Rfl: rosuvastatin (Crestor) 40 mg tablet, Take 20 mg by mouth in the morning., Disp: , Rfl: No current facility-administered medications for this visit. Facility-Administered Medications Ordered in Other Visits: k (more content not included)... [facility] 10-10-2023 Note Chief Complaint consultation for colonoscopy HPI Staff 58 year old female presents on consultation from Dr. Lee for colonoscopy. Colonoscopy is needed prior to renal transplant. Last colonoscopy completed 11/2015- normal. No known family history of colon cancer. Denies abdominal or rectal pain. No rectal bleeding or change in bowel habits. Denies nausea or vomiting. No unexplained weight loss. History of Present Illness 58 yo female with h/o htn, hyperlipidemia, ESRD on peritoneal dialysis, migraines, SVT, referred for colorectal screening; denies change in bms or blood in stools; no abdominal complaints; denies asa or NSAID use, no SBE prophylaxis; no abdominal operations; last colonoscopy 11/2015 wnl; no fmhx of GI malignancy or IBD; no tobacco use. Review of Systems PHQ Score Initial Depression Screen Score: 0 SCORE ROS - Provider Constitutional: no fever, no sweats, no weight loss. Eyes: no glasses, no blurred vision, no visual loss. ENMT: no dentures, no hoarseness, no swallowing difficulties, no hearing loss, no ear infection(s), no nose bleeds. Cardiovascular: normal blood pressure, no chest pain, regular heartbeat, no heart murmur. Respiratory: no shortness of breath, no cough, no asthma, no wheezing. Gastrointestinal: no nausea, no vomiting, no diarrhea, no constipation, no blood in stool, no change in bowel habits, no abdominal pain, no hepatitis. Genitourinary: no kidney stones, no urine infection, no dysuria. Musculoskeletal: no pain, no weakness. Skin: no changing moles, no rash, no skin lumps. Neurologic: no seizures, no epilepsy, no headache. Psychiatric: no emotional or psychiatric problem. Heme/Lymph: no bleeding problems, no anemia, no blood clots, no transfusions. Allergy/Immunologic: no swollen lymph nodes/glands, no IV drug abuse. Other: Additional ROS info: Except as noted in the above Review of Systems and in the History of Present Illness, all other systems have been reviewed and are negative or noncontributory. Physical Exam Vitals & Measurements HR: 76(Peripheral) RR: 16 BP: 128/90 HT: 60 in HT: 152.4 cm WT: 74.2 kg WT: 163.24 lb BMI: 31.95 HEENT: normal conjunctiva, sclera clear, no scleral icterus, EOM intact, PERRLA, oral mucosa moist without lesions. Neck: trachea midline, no mass, symmetric, no thyromegaly or nodules, no adenopathy Respiratory: lungs CTA, respirations non labored. Cardiovascular: regular rate and rhythm, no murmur, no pedal edema or varicosities. Gastrointestinal: obese,soft, non distended, no tenderness, no masses, no palpable hernias, diastasis recti no, no hepatosplenomegaly; normal bs Lymphatic: no cervical adenopathy, no supraclavicular adenopathy. Musculoskeletal: normal gait, digits and nails without infection, nodes, cyanosis, clubbing. Skin: no rashes, no lesions, no ulcers, no subcutaneous nodules, induration. Psychiatric/Neuro: oriented to time, place, person, judgement normal, affect appropriate for age, insight intact, no focal deficits. Tests: review of old records completed , Discussed surgical options, risks, and possible complications with patient. Assessment/Plan 1. Special screening for malignant neoplasm of colon (Z12.11: Encounter for screening for malignant neoplasm of colon) plan colonoscopy under anesthesia, informed consent obtained. Follow-up No qualifying data available Problem List/Past Medical History Ongoing Chronic interstitial nephritis Continuous ambulatory peritoneal dialysis status End stage renal disease Essential hypertension Hyperlipidemia Microscopic hematuria Migraines Nocturia Osteoporosis Special screening for malignant neoplasm of colon Stress urinary incontinence SVT (supraventricular tachycardia) Urethral stricture Urgency - urination Urinary frequency Historical Hyperlipidemia Hypertension Procedure/Surgical History Cystourethroscopy with dilation of urethral stricture (11/15/2017), Colonoscopy (12/16/2015), CAPD - continuous ambulatory peritoneal dialysis, EGD - esophagogastroduodenoscopy, EGD - esophagogastroduodenoscopy. Medications calcitriol 0.25 mcg Cap, 0.25 mcg= 1 cap(s), Oral, MonWedFri calcium acetate 667 mg oral capsule, 667 mg= 1 cap(s), Oral, TID DilTIAZem (Eqv-Cardizem CD) 180 mg/24 hours oral capsule, extended release, 180 mg= 1 cap(s), Oral, Daily gabapentin 300 mg Cap, 300 mg= 1 cap(s), Oral, Daily magnesium oxide 400 mg Tab, 400 mg= 1 tab(s), Oral, Daily rosuvastatin 20 mg Tab, 20 mg= 1 tab(s), Oral, Daily Allergies No Known Allergies No Known Medication Allergies Social History Alcohol - Denies Alcohol Use, 10/10/2023 Substance Abuse - Denies Substance Abuse, 10/10/2023 Tobacco Never (less than 100 in lifetime) Tobacco Use:. Never Smokeless Tobacco Use:., 10/10/2023 Family History Cardiac arrhythmia: Father. Esophageal cancer: Father. Heart disease: Father. Immunizations Vaccine Date Status SARS-CoV-2 (COVID-19) mRNAMUL. (more content not included)... [facility] Comment on above: Result Comment: Elec tronically Signed By: MIRIAN THOMPSON, Quinton Briggs.darleen\Date and Time Signed: 10/10/23 14:40 EST 09-04-2023 Note Lauren Triana saw the patient in clinic in lieu of transplant financial examiner. They understood all the financial responsibilities associated with a kidney transplant and the expense of prescriptions after transplant. This includes all co-pays, deductibles and out of pocket expenses. The patient was instructed to contact me of any insurance or financial changes. My card was given to them for direct contact. The patient was given copies of all information and patient financial responsibility forms they signed. [facility] 09-04-2023 Note Transplant Nutrition Assessment Name: Mulu Zambrano : 1965 Assessment date: 09/04/2023 PMH: CKD, ESRD, HLD, HTN Dialysis HX: PD nightly Height: 152.4cm Weight: 76kg BMI Classification: Obese (30+)Body mass index is 32.73 kg/m???. Appetite: Fair. States this has been her ususal Context: Weight loss: 10# which pt states was fluid loss and not her trying to lose wt. Current diet: low salt, limit fluids, low Phos/K Nutrition/Diet: Most meals eaten at home. About 50% eaten away from the home. Diet Recall Breakfast: Zillah instant breakfast with pills Lunch: most days nothing Dinner: green beans, potatoes, mcleod, or pork chops or eating out chicken tenders, fries, Pepsi Snacks: not ususally but may have candy like Nerds, or licoice or Kind bar Drinks: Pop, brewed tea, not often milk 2% Supplements: protein bars 1-2/wk Dietary & Physical Activity Compliance: Complies to free water restrictions. States her labs from dialysis center are WNL. Does not comply with low sodium diet., Poor exercise/physical activity habits., and Sedentary lifestyle/inactive. Pica: No pica. Reported Medications/Supplements: Currently taking medication for a heart problem. and Vit D, C, and probiotic, renal multivitamin Nutrition Labs: Trig 256=09/04/23, A1C 5.4=09/04/23, Nutrition Social History: $50 /month from insurance for food. Associated Symptoms: No diarrhea, No dysphagia, No edema., No nausea, No sore mouth, No sore throat., No vomiting, Normal dentition, Abnormal dentition, and Constipation. GERD Nutrition Risk: low Patient Goals: Diet: Increase fiber., Increase fruits., Increase vegetables., Limit fat/saturated fat., Limit refined sugars., and limit high sodium foods. Exercise: Increase activity. Notes: Discussed post tx diet with pt and pt's visitor. Encouraged pt to follow lower fat (avoiding fried foods), lower sodium (avoid convenience foods, higher sodium foods) and increase physical activity to 30 min/day. No nutritional questions per pt at this time. No nutrition concerns at this time. Quique Olivares RD [facility] 09-04-2023 Note Identifying Informat ion Name: Mulu Zambrano : 1965 Assessment date: 09/04/2023 Transplant type: Kidney Transplant Evaluation - 09/04/2023 Primary language: Irish Catholic/spirituality: No oriental orthodox affiliation People present at assessment: Virgil Daughter in law Do you have any oriental orthodox, ethical or personal objections to accepting blood products, surgery and/or transplant? No Citizenship Where were you born? In the [place] in [place], [place] Where do you currently live or are staying? [place] Saavedra- 1 hour Family Background and Supportive Relationships Parents: Mom- living and healthy, Dad- , esophogeal cancer Siblings: 1 sister, healthy Children: Biological Number of children, living or (UNOS question): 2 Names, age, health status, relationship, address: Skip, 40, healthy, [place], [place] Sajan, 38, healthy, [place], [place] Good relationships with both boys Marital/relationship status: - 16 years ago Household composition: Lives alone Are there any current or past significant life changes or traumatic events? Father passing Support / Caregiver Plans Who will be your primary caregiver? [id number] Virgil Daughter in law Contact #: [phone] Health status & availability: Healthy. Works a flexed schedule. Able to drive. Who will be your secondary caregiver(s)? Richelle - granddaughter Contact #: [phone] Health status & availability: Healthy. School two days per week. Able to drive. Other loved ones live close-by and will be able to help as needed. Other important supportive relationships: If several caregivers are involved, will they be able to cooperate with each other? No concerns How comfortable are you asking for and/or receiving help? Not very but working on it Have you been or are you currently a caregiver for someone else (i.e. children, spouse, parents)? No Are there any ongoing family disagreements or life issues that may be impacted by the transplant? None Does anyone in your household or caregiving team use tobacco, or abuse alcohol or illicit substances? No Advance Directives Do you have an advance directive? G No, No Info Wanted - will mail [place] Do you have a DPOA for healthcare or finances? no A living will? no Education given: Yes Information mailed: Yes Date: 09/20/23 Education / Employment / Financial Situation Highest education level: High School Diploma Are you still working? No. 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 Does not plan to Disability Are you on any form of disability? yes What type? SSDI What is the status? Active Financial Status Income per month: $2,700 Income source: SSDI plus small pension Do you have any current financial concerns? None Is current income adequate to meet monthly needs and current medications? yes Would you be interested in fundraising information? yes Insurance / Resources Payer/Plan Subscriber Name Rel Member # Group # [employer]ARE MULU TAMEZ Self [id number] [id number] [id number] Are you aware of a coordination of benefits with your insurance and Medicare (if applicable)? yes Are you receiving assistance through [facility] Program: No - will mail info Medication Coverage Do you have prescription coverage: Yes What are your medication costs for generic, preferred brand, and non-preferred brand medications? Most cost her nothing, one of her meds is $45 for a 3 month supply Indicate medication costs after transplant: Discussed How will you pay for these medications after transplant? Insurance [place] Benefits Have you served in the ? No Understanding of Medical Situation What is your primary diagnosis? HTN When did you become aware of your diagnosis? 14 years ago Do you have any other health issues? yes - osteopetrosis, HTN If yes, how do they impact you? Appts, PD Dialysis center, schedule, type, and start date (if applicable): Dialysis History Patient has no recorded history of dialysis. [place], [place] Dialysis Schedule: PD at home. [facility]. 7 hours. Initiated May 2023. Treatment Compliance / Adherence How do you manage your medications now? Memory and Other Straight from the bottle, sets an alarm Do you have any difficulties in getting or taking your medications? No concerns Do you know what you take and what they are for?: Yes Have you ever changed the way you take a medication without talking to the doctor? no Do you adhere to your diet? Yes- Low sodium, low phos, low potassium - labs look good Do you adhere to your fluid restrictions? Yes - 48oz Do you adhere to your dialysis attendence/schedule? Yes Do you have a PCP or other medical provider you see regularly in the community? yes Dr Lee is PCP, Dr Mims is nephro What has your relatio (more content not included)... [facility] 09-04-2023 Note This report has been cancelled. [facility] 09-04-2023 Note Pre-Transplant Kidne y Evaluation Surgery Consultation Chief complaint: Kidney transplant evaluation PCP: Jonathon Lee MD Txp Referring: Fidelia Garcia Preferred [facility]acy: [id number] - [place], [place] - [address] [id number] Subjective Visit Vitals BP 138/79 (BP Location: Left arm, Patient Position: Sitting, BP Cuff Size: Adult) Pulse 95 Temp 36.3 ???C (97.4 ???F) (Oral) Ht 1.524 m (5') Wt 76 kg (167 lb 9.6 oz) BMI 32.73 kg/m??? Smoking Status Never BSA 1.79 m??? No Known Allergies Medication Documentation Review Audit Reviewed by Angel Cronin RN (Registered Nurse) on 09/04/23 at 1036 Medication Order Taking? Sig Documenting Provider Last Dose Status Cartia XT 120 mg 24 hr capsule [id number] Yes Take 120 mg by mouth in the morning and at bedtime. Historical Provider, Taking Active Dialyvite 100-1 mg tablet [id number] Yes Take 1 tablet by mouth in the morning. Historical Provider, Taking Active dilTIAZem CD (Cardizem CD) 180 mg 24 hr capsule [id number] Yes Take 180 mg by mouth in the morning and at bedtime. Historical Provider, Taking Active gabapentin (Neurontin) 300 mg capsule [id number] Yes Take 300 mg by mouth at bedtime. Historical Provider, Taking Active pantoprazole (ProtoNix) 40 mg EC tablet [id number] Yes Take 40 mg by mouth in the morning. Historical Provider, Taking Active rosuvastatin (Crestor) 40 mg tablet [id number] Yes Take 20 mg by mouth in the morning. Historical Provider, Taking Active Immunization History Administered Date(s) Administered Covid (Pfizer) Bivalent Booster =>12 YRS 06/06/2022 Moderna SARS-CoV-2 Vaccination 06/06/2022 Pfizer Covid-19 Vaccine, &up, Fall 2022-09/06/2023 Pfizer SARS-CoV-2 Vaccination 12/20/2020, 01/09/2021, 08/29/2021 Diagnoses: 1. Hypertension, unspecified type [I10] 2. Abnormal finding of blood chemistry, unspecified 3. End stage renal disease ([facility]) 4. Hypertension, essential 5. Pre-transplant evaluation for end stage renal disease Problems: Patient Active Problem List Diagnosis Metatarsus adductus Osteoarthritis CKD (chronic kidney disease) stage 5, GFR less than 15 ml/min ([facility]) Migraines Vitamin D deficiency Secondary hyperparathyroidism of renal origin ([facility]) Hypertensive disorder Hyperlipidemia ESRD (end stage renal disease) on dialysis ([facility]) Family History Problem Relation Name Age of Onset Cancer Father Donaldo Breast cancer Mother's Sister Breast cancer Cousin Social History Tobacco Use Smoking status: Never Smokeless tobacco: Never Vaping Use Vaping Use: Never used Substance Use Topics Alcohol use: Yes Comment: Occasional Drug use: Never Past Medical History: Diagnosis Date CKD (chronic kidney disease) stage 5, GFR less than 15 ml/min ([facility]) ESRD (end stage renal disease) on dialysis ([facility]) Hyperlipidemia Hypertensive disorder Metatarsus adductus Migraines Osteoarthritis right foot Secondary hyperparathyroidism of renal origin ([facility]) Vitamin D deficiency Past Surgical History: Procedure Laterality Date COLONOSCOPY CT ABDOMEN PELVIS WO RENAL RECIPIENT 09/04/2023 CT ABDOMEN PELVIS WO RENAL RECIPIENT 09/04/[address] [facility] [address] IMAGING ESOPHAGOGASTRODUODENOSCOPY PERITONEAL CATHETER INSERTION 05/25/2023 RENAL BIOPSY 2010 Dialysis History Start End Type Center Comments 05/25/2023 [facility] [place] Dialysis [facility] Information [facility] Address: [address] [place] [phone] Travel Screening No screening recorded since 09/03/23 0000 Travel History Travel since 08/05/23 No documented travel since 08/05/23 HPI The patient is a 58 year old female with chronic renal failure ESRD secondary to biopsy-proven hypertensive nephrosclerosis and chronic interstitial nephritis. Per her [employer], renal biopsy from 2010 revealed findings consistent with arteriolosclerosis and focal global glomerulosclerosis with moderate tubular atrophy and interstitial fibrosis all of which would be seen in hypertensive nephrosclerosis. Also seen on the renal biopsy was evidence of an interstitial nephritis which was attributed to Lisinopril. She has initiated dialysis started 05/2023. Her most recent GFR is 10 mL/min from 05/24/2023. She had a PD catheter placed and has started dialysis at [facility]. Her forest resource specialist is Dr Kang. Her past medical history is significant for HTN for the past 20 years, controlled with medications, hyperlipidemia, migraines, severe metatarsus adductus and osteoarthritis (right foot), vitamin D deficiency and secondary hyperparathyroidism. She had the Pfizer COVID vaccine in November/December 2020 with boosters in August 2021 and May 2022. The patient does not have any history of DVT/PE/clotting events. She is not on an (more content not included)... [facility] 09-04-2023 Note 09/04/23 Coordinator met with patient for initial transplant evaluation appointment in Transplant clinic today. Explained transplant process and consents with patient. Answered patient questions. Social work, finance and tub attendant in to see patient. Dr. Cruz in for H&P and transplant plan. Dr. Velazco in for surgical evaluation. Coordinator provided copy of plan to patient and reviewed it with them. Patient aware further testing needed and to keep transplant team updated. Understanding verbalized by patient. [employer] provided verbal order for patient labs, EKG, CXR and CT scan today. Work-up Needed-Date of Eval Letter Mailed to patient and faxed to [facility] [facility] Dialysis Center. Fermentologist provided patient TE folder with education on various transplant consents, the workup process, surgery details, postop expectations, transplant statistics, and living donor information. Answered patient questions and verified understanding. [facility] 09-04-2023 Note Pre-Transplant Evalu ation Nephrology Consult Chief Complaint Patient presents with Kidney Transplant Evaluation PCP: Jonathon Lee MD Txp Referring: Fidelia Garcia Preferred [facility]acy: [id number] [facility] [phone] Subjective Visit Vitals BP 138/79 (BP Location: Left arm, Patient Position: Sitting, BP Cuff Size: Adult) Pulse 95 Temp 36.3 ???C (97.4 ???F) (Oral) Ht 1.524 m (5') Wt 76 kg (167 lb 9.6 oz) BMI 32.73 kg/m??? Smoking Status Never BSA 1.79 m??? No Known Allergies Medication Documentation Review Audit Reviewed by Angel Cronin RN (Registered Nurse) on 09/04/23 at 1036 Medication Order Taking? Sig Documenting Provider Last Dose Status Cartia XT 120 mg 24 hr capsule [id number] Yes Take 120 mg by mouth in the morning and at bedtime. Historical Provider, Taking Active Dialyvite 100-1 mg tablet [id number] Yes Take 1 tablet by mouth in the morning. Historical Provider, Taking Active dilTIAZem CD (Cardizem CD) 180 mg 24 hr capsule [id number] Yes Take 180 mg by mouth in the morning and at bedtime. Historical Provider, Taking Active gabapentin (Neurontin) 300 mg capsule [id number] Yes Take 300 mg by mouth at bedtime. Historical Provider, Taking Active pantoprazole (ProtoNix) 40 mg EC tablet [id number] Yes Take 40 mg by mouth in the morning. Historical Provider, Taking Active rosuvastatin (Crestor) 40 mg tablet [id number] Yes Take 20 mg by mouth in the morning. Historical Provider, Taking Active Immunization History Administered Date(s) Administered Covid ([employer]) Bivalent Booster =>12 YRS 06/06/2022 Moderna SARS-CoV-2 Vaccination 06/06/2022 Pfizer SARS-CoV-2 Vaccination 12/20/2020, 01/09/2021, 08/29/2021 Patient Active Problem List Diagnosis Metatarsus adductus Osteoarthritis CKD (chronic kidney disease) stage 5, GFR less than 15 ml/min ([facility]) Migraines Vitamin D deficiency Secondary hyperparathyroidism of renal origin ([facility]) Hypertensive disorder Hyperlipidemia ESRD (end stage renal disease) on dialysis ([facility]) Family History Problem Relation Name Age of Onset Cancer Father Donaldo Breast cancer Mother's Sister Breast cancer Cousin Social History Tobacco Use Smoking status: Never Smokeless tobacco: Never Vaping Use Vaping Use: Never used Substance Use Topics Alcohol use: Yes Comment: Occasional Drug use: Never Past Medical History: Diagnosis Date CKD (chronic kidney disease) stage 5, GFR less than 15 ml/min (CMS/HCC) ESRD (end stage renal disease) on dialysis (CMS/HCC) Hyperlipidemia Hypertensive disorder Metatarsus adductus Migraines Osteoarthritis right foot Secondary hyperparathyroidism of renal origin (CMS/HCC) Vitamin D deficiency Past Surgical History: Procedure Laterality Date COLONOSCOPY CT ABDOMEN PELVIS WO RENAL RECIPIENT 09/04/2023 CT ABDOMEN PELVIS WO RENAL RECIPIENT 09/04/[address] [facility] [address] IMAGING ESOPHAGOGASTRODUODENOSCOPY PERITONEAL CATHETER INSERTION 05/25/2023 RENAL BIOPSY 2010 Dialysis History Patient has no recorded history of dialysis. 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 Per her [employer], renal biopsy from 2010 revealed findings consistent with arteriolosclerosis and focal global glomerulosclerosis with moderate tubular atrophy and interstitial fibrosis all of which would be seen in hypertensive nephrosclerosis. Also seen on the renal biopsy was evidence of an interstitial nephritis which was attributed to Lisinopril. She has initiated dialysis started 05/2023. Her most recent GFR is 10 mL/min from 05/24/2023. She had a PD catheter placed and has started dialysis at [facility]. Her forest resource specialist is Dr Kang. Her past medical history is significant for HTN for the past 20 years, controlled with medications, hyperlipidemia, migraines, severe metatarsus adductus and osteoarthritis (right foot), vitamin D deficiency and secondary hyperparathyroidism. She had the Pfizer COVID vaccine in November/December 2020 with boosters in August 2021 and May 2022. The patient does not have any history of DVT/PE/clotting events. She is not on any anticoagulation. The patient does have a family history of cancer. Her father had cancer and a maternal aunt and cousin have had breast cancer. She still makes urine, approximately normal amounts per day. She has history of UTI most recent last year, denies blood in the urine, or kidney stones. She is able to walk 1/2 block before stopping due to fatigue and lower back pain. She complains of SOB on exertion, denies chest pain or intermittent claudicatio (more content not included)... [facility] 05-17-2023 Note TC called patients n ephrology office to request insurance cards again. Nephrology office staff confirmed that they had the insurance cards on file, confirmed the fax number to send to and said the would send it over right away. [facility] 04-17-2023 Note TC reached out to th e patient's nephrology office to request insurance cards in order to process referral. Ey stated they would fax. Beverley Winters RN [facility] Evaluation + Plan note No data available for this section General Surgery [facility] Discharge instructions No data available for this section General Surgery [place] Progress note No data available for this section General Surgery [place] Summary Purpose Family History No Family History Records Found No data available for this section No Family History Records FoundNo Family History Records FoundNo Family History Records Found Advance Directives No Advanced Directives Records FoundNo Advanced Directives Records FoundNo Advanced Directives Records FoundNo Advanced Directives Records Found Additional Source Comments INFORMATION SOURCE (unrecogn ized section and content) DATE CREATED AUTHOR 03/14/2018 [facility] DATE CREATED AUTHOR AUTHOR'S ORGANIZ ATION 10/27/2023 [facility] DATE CREATED AUTHOR AUTHOR'S ORGANIZ ATION 11/11/2023 [facility] DATE CREATED AUTHOR AUTHOR'S ORGANIZ ATION 11/12/2023 [facility] Patient Care team informatio n (unrecognized section and content) Personnel Name: JONATHON LEE JR, DO Address: Address: [address] [place] [phone] FOR RECORDS PERTAINING TO PATIENTS WHO ARE OR HAVE BEEN ENROLLED IN A CHEMICAL DEPENDENCY/SUBSTANCEABUSE PROGRAM, SOME INFORMATION MAY BE OMITTED. This clinical summary was aggregated from multiple sources. Caution should be exercised in using it in the provision of clinical care. This summary normalizes information from multiple sources, and as a consequence, information in this document may materially change the coding, format and clinical context of patient data. In addition, data may be omitted in some cases. CLINICAL DECISIONS SHOULD BE BASED ON THE PRIMARY CLINICAL RECORDS. [facility] [employer] [facility] provides no warranty or guarantee of the accuracy or completeness of information in this document.
[2023-11-14 07:39] VITALS: BP 116/88; PULSE 73; RESP 18; TEMP 36.2; O2SAT 98; BMI 31.0
[2023-11-14 07:48] LABS: HCG Qualitative NEGATIVE (NEGATIVE)
[2023-11-14] MEDS: 0.9 % SODIUM CHLORIDE 1,000 ML 50 ML IV (07:50)
[2023-11-14] MEDS: CEFTRIAXONE 1,000 MG in 0.9 % SODIUM CHLORIDE 50 ML 100 MG IV (08:20)
[2023-11-14 08:49] VITALS: BP 105/76; PULSE 82; RESP 16; TEMP 36; O2SAT 100
[2023-11-14 09:04] VITALS: BP 113/68; PULSE 86; RESP 16; O2SAT 96
[2023-11-14 09:19] VITALS: BP 120/76; PULSE 81; RESP 16; O2SAT 96
== END 2023-11-14 09:19 | disposition home or self-care (01) ==
PROVIDERS: PCP Internal Medicine; Visit Provider Surgery
PROC: (CPT 45385; principal; 2023-11-14 08:30)
DX: Z12.11 Encounter for screening for malignant neoplasm of colon (principal); D12.3 Benign neoplasm of transverse colon; K57.30 Diverticulosis of large intestine without perforation or abscess without bleeding; E78.5 Hyperlipidemia, unspecified; R31.29 Other microscopic hematuria; R35.1 Nocturia; R39.15 Urgency of urination; R35.0 Frequency of micturition; I12.0 Hypertensive chronic kidney disease with stage 5 chronic kidney disease or end stage renal disease; N18.6 End stage renal disease; Z99.2 Dependence on renal dialysis; M81.0 Age-related osteoporosis without current pathological fracture; Z79.899 Other long term (current) drug therapy
CPT/HCPCS: 45385; 36415; 84703; 88305; J0696; J2704

== ENCOUNTER 2023-11-20 20:39 | Outpatient (REF) | payer MEDICARE, SELFPAY ==
--- OUTSIDE RECORDS SUMMARY | 2023-11-20 20:45 | XMS_ITS | CCD ---
Author Name Unknown Address [address] [place] [address] Organization [facility] Care Team Providers Care Training And Development Specialist Name Role Phone DAHLIA DRIVER JR Unavailable Unavailable DAHLIA DRIVER JR Unavailable Unavailable VALONE, JONATHON Unavailable Unavailable MARVEL NICOLAS Unavailable Unavailable NEISHA MONTIEL, DAHLIA Guo Unavailable Unavailable VALONE, JONATHON Unavailable Unavailable VALONE, JONATHON Unavailable Unavailable VALONE, JONATHON Unavailable Unavailable VALONE, JONATHON Unavailable Unavailable BRYAN FOFANA Unavailable Unavailable KAREN OSMAN Unavailable Unavailable RABIA HATCH Unavailable Unavailable ROBBINONE JONATHON MONTIEL Primary Care Physician [phone] JONATHON LEE Referring Unavailable Quinton ZUNIGA Attending [...] Medication Allergies] Propensity to adverse reactions (disorder) [facility] Repository (1 source) denosumab; Translations: [DENOSUMAB] Drug Allergy 4 [facility] Repository Medications Current Medications Medication Drug Class(es) Dates Sig (Normalized) Sig (Original) calcitriol 0.80180 mg oral capsule (1 source) Vitamin D3 [...] Range 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 Doctor consulted--NA Treatment/Decision tree utilized-renal transplant evaluation F/U appointment scheduled with Dr. Mo 11/07/@ 11:40am PT tolerated treadmill well, target heart rate achieved. No acute ST or T waves changes noted Denies chest pain or dyspnea Pt left stress lab asymptomatic and hemodynamically stable. Full final report from check services clerk to follow Leticia Quinn, MSN, REEL SYSTEM OPERATOR Stress Lab Normal [facility] ABO/RHon 11-07-2023 ABO group Nom (Bld) B Normal [facility] Comment on above: Performed By: #### L [id number] #### [facility] BLOOD BANK , RH TYPE IN BLOOD Positive Normal [facility] Comment on above: Performed By: #### L [id number] #### [facility] BLOOD BANK , Consulton 11-07-2023 Consult [id number] Ho Zambrano 1965 F Date Provider Department Center 11/07/2023 [facility] [place] [facility] CARD [place] HeartVAS Family History Problem Relation Age of Onset Cancer Father Breast cancer Mother's Sister Breast cancer Cousin Family Status - Relation Status Age at Father Mother's Sister Cousin Alive Level of Service:96401 [place] OFFICE/OP CONSLTJ NEW/EST PT LOW MDM 30 MINUTES Reason for Visit and Comments: Cardiac evaluation for Renal Transplant [Other] - 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 Normal [facility] Labon 11-07-2023 Lab [id number] Ho Zambrano 1965 F Date Provider Department Center 11/07/20235-[facility] OPD LAB RESOURCE [facility] OPD [place] [facility] Family History Problem Relation Age of Onset Cancer Father Breast cancer Mother's Sister Breast cancer Cousin Family Status - Relation Status Age at Father Mother's Sister Cousin Alive Normal [facility] PANEL REACTIVE ANTIBODYon HOLD SPECIMEN Hold for add-ons. Normal [facility] Comment on above: Result Comment: Auto resulted. Performed By: #### L [id number] #### [facility] TISSUE TYPING (HISTOTRAC) [address] SINGLE ANTIGEN CLASS Ion CLASS I TESTED DATE Normal [facility] Comment on above: Performed By: #### L [id number] #### [facility] BLOOD BANK , SINGLE ANTIGEN CLASS 1 TEST METHOD Class I Single Antigen Normal [facility] Comment on above: Performed By: #### L [id number] #### [facility] BLOOD BANK , SINGLE ANTIGEN CLASS IIon AB SCREEN COMMENTS No Specificites Found Normal [facility] Comment on above: Performed By: #### L [id number] #### [facility] TISSUE TYPING (HISTOTRAC) [address] [place] [address] [facility] Performed By: #### L [id number] #### [facility] BLOOD BANK , CLASS II TESTED DATE Normal [facility] Comment on above: Performed By: #### L [id number] #### [facility] TISSUE TYPING (HISTOTRAC) [address] CPRA 0 Normal [facility] Comment on above: Performed By: #### L [id number] #### [facility] TISSUE TYPING (HISTOTRAC) [address] Performed By: #### L [id number] #### [facility] BLOOD BANK , SIGNED BY Signed by Sara galindo CHT(ACHI) KRISHNA(ASCP), Facility Practice Specialist Transplant Immunology [facility] Comment on above: Performed By: #### L [id number] #### [facility] TISSUE TYPING (HISTOTRAC) [address] Result Comment: Clas s I Antigen Microbeads Performed By: #### L [id number] #### [facility] BLOOD BANK , SINGLE ANTIGEN CLASS 2 TEST METHOD Class II Single Antigen Normal [facility] Comment on above: Result Comment: Clas s II Antigen Microbeads Performed By: #### L [id number] #### [facility] TISSUE TYPING (HISTOTRAC) [address] Physician Orderon 10-26-2023 Physician Order [id number]#1.00T IFF Normal [facility] Formson 10-12-2023 Forms [id number] [facility] [id number]#1.00TI FF Normal [facility] Consent for Procedure/Surger yon 10-11-2023 Consent for Procedure/Surgery [id number]#1.00T IFF Normal [facility] Ambulatory Visit Summaryon 0 10-10-2023 Ambulatory Visit Summary MULU ZAMBRANO :1965 Visit Date:10/10/2023 Ambulatory Visit Instructions Your Diagnosis Special screening for malignant neoplasm of colon Your Care Team Attending Physician - EFRAIN THOMPSON, Quinton Galindo Primary Care Physician - JONATHON LEE JR, [...] for choosing us for your care. Normal [facility] Facesheeton 10-10-2023 Facesheet [id number]#1.0 0TIFF Normal [facility] BASIC METABOLIC PANLon 10-03 Anion gap [Moles/Vol] 11 mmol/L Normal 5-15 [facility] Comment on above: Performed By: #### C BCA, CMP, FEPR, 05299-6, 2777-1, 5193-8, 5196-1, 2276-4, 2731-8, 2132-9, 2284-8, 90331-6 #### [facility] ([id number]) [address], [address] [place] [address] Calcium [Mass/Vol] 8.5 mg/dL Normal 8.5-10.5 [facility] Comment on above: Performed By: #### C BCA, CMP, FEPR, 90563-2, 2777-1, 5193-8, 5196-1, 2276-4, 2731-8, 2132-9, 2284-8, 39907-1 #### [facility] ([id number]) [address], [address] [place] [address] Chloride [Moles/Vol] 111 mmol/L High 98-109 [facility] Comment on above: Performed By: #### C BCA, CMP, FEPR, 25543-6, 2777-1, 5193-8, 5196-1, 2276-4, 2731-8, 2132-9, 2284-8, 18174-1 #### [facility] ([id number]) [address], [address] [place] [address] CO2 [Moles/Vol] 21 mmol/L Low 22-32 [facility] Comment on above: Performed By: #### C BCA, CMP, FEPR, 93042-8, 2777-1, 5193-8, 5196-1, 2276-4, 2731-8, 2132-9, 2284-8, 29527-4 #### [facility] ([id number]) [address], [address] [place] [address] Creatinine [Mass/Vol] 3.78 mg/dL High 0.40-1.00 [facility] Comment on above: Result Comment: METH OD TRACEABLE TO IDMS STANDARD Performed By: #### C BCA, CMP, FEPR, 09844-8, 2777-1, 5193-8, 5196-1, 2276-4, 2731-8, 2132-9, 2284-8, 69675-7 #### [facility] ([id number]) [address], [address] [place] [address] GFR/1.73 sq M.predicted among non-blacks MDRD (S/P/Bld) [Vol rate/Area] 13 mL/min/{1.73_m2} Low >59 [facility] Comment on above: Result Comment: Reported eGFR is based on the CKD-EPI 2020 equation that does not use a race coefficient. Performed By: #### C BCA, CMP, FEPR, 54460-1, 2777-1, 5193-8, 5196-1, 2276-4, 2731-8, 2132-9, 2284-8, 98652-8 #### [facility] ([id number]) [address], [address] [place] [address] Glucose [Mass/Vol] 93 mg/dL Normal 65-99 [facility] Comment on above: Performed By: #### C BCA, CMP, FEPR, 32745-6, 2777-1, 5193-8, 5196-1, 2276-4, 2731-8, 2132-9, 2284-8, 22697-0 #### [facility] ([id number]) [address], [address] [place] [address] Potassium [Moles/Vol] 4.2 mmol/L Normal 3.5-5.0 [facility] Comment on above: Performed By: #### C BCA, CMP, FEPR, 95157-3, 2777-1, 3-8, 5196-1, 2276-4, 2731-8, 2132-9, 2284-8, 20740-4 #### [facility] ([id number]) [address], [address] [place] [address] Sodium [Moles/Vol] 143 mmol/L Normal 134-146 [facility] Comment on above: Performed By: #### C BCA, CMP, FEPR, 77521-8, 7-1, 3-8, 6-1, 2276-4, 2731-8, 2132-9, 2284-8, 70742-5 #### [facility] ([id number]) [address], [address] [place] [address] Urea nitrogen [Mass/Vol] 25 mg/dL High 5-23 [facility] Comment on above: Performed By: #### C BCA, CMP, FEPR, 12160-6, 7-1, 3-8, 6-1, 2276-4, 2731-8, 2-9, 2284-8, 79815-1 #### [facility] ([id number]) [address], [address] [place] [address] CBC AND AUTO DIFFon 01-10-20 24 ABSOLUTE BASOPHIL 0.0 X10E9/L Normal 0.0-0.2 [facility] Comment on above: Performed By: #### C BCA, CMP, FEPR, 68811-0, 2776-1, 3-8, 6-1, 2276-4, 2731-8, 2132-9, 2284-8, 49277-7 #### [facility] ([id number]) [address], [address] [place] [address] ABSOLUTE NEUTROPHIL 2.7 X10E9/L Normal 1.5-6.6 [facility] Comment on above: Performed By: #### C BCA, CMP, FEPR, 76997-3, 2777-1, 5193-8, 5196-1, 2276-4, 2731-8, 2132-9, 2284-8, 31027-9 #### [facility] ([id number]) [address], [address] [place] [address] Basophils/100 WBC (Bld) 0.7 % Normal [facility] Comment on above: Performed By: #### C BCA, CMP, FEPR, 40969-4, 7-1, 5193-8, 5196-1, 2276-4, 2731-8, 2132-9, 2284-8, 29422-7 #### [facility] ([id number]) [address], [address] [place] [address] Eosinophils (Bld) [#/Vol] 0.1 10*3/uL Normal 0.0-0.4 [facility] Comment on above: Performed By: #### C BCA, CMP, FEPR, 60836-5, 7-1, 3-8, 5196-1, 2276-4, 2731-8, 2132-9, 2284-8, 69995-5 #### [facility] ([id number]) [address], [address] [place] [address] Eosinophils/100 WBC (Bld) 2.3 % Normal [facility] Comment on above: Performed By: #### C BCA, CMP, FEPR, 67368-7, 7-1, 3-8, 5196-1, 2276-4, 2731-8, 2132-9, 2284-8, 67517-9 #### [facility] ([id number]) [address], [address] [place] [address] Erythrocyte distribution width (RBC) [Ratio] 13.7 % Normal 11.5-15.0 [facility] Comment on above: Performed By: #### C BCA, CMP, FEPR, 70505-9, 7-1, 3-8, 5196-1, 2276-4, 2731-8, 2132-9, 2284-8, 48239-8 #### [facility] ([id number]) [address] [place] [address] Hematocrit (Bld) [Volume fraction] 32.2 % Low 35-47 [facility] Comment on above: Performed By: #### C BCA, CMP, FEPR, 67152-3, 7-1, 3-8, 5196-1, 2276-4, 2731-8, 2132-9, 2284-8, 98590-0 #### [facility] ([id number]) [address], [address] [place] [address] Hemoglobin (Bld) [Mass/Vol] 11.1 g/dL Low 11.7-15.5 [facility] Comment on above: Performed By: #### C BCA, CMP, FEPR, 36286-0, 7-1, 3-8, 6-1, 2276-4, 2731-8, 2132-9, 2284-8, 46700-8 #### [facility] ([id number]) [address], [address] [place] [address] Lymphocytes (Bld) [#/Vol] 1.5 10*3/uL Normal 1.0-3.5 [facility] Comment on above: Performed By: #### C BCA, CMP, FEPR, 78582-8, 7-1, 3-8, 5196-1, 2276-4, 2731-8, 2132-9, 2284-8, 37376-3 #### [facility] ([id number]) [address], [address] [place] [address] Lymphocytes/100 WBC (Bld) 31.6 % Normal [facility] Comment on above: Performed By: #### C BCA, CMP, FEPR, 80709-7, 7-1, 3-8, 5196-1, 2276-4, 2731-8, 2132-9, 2284-8, 38195-9 #### [facility] ([id number]) [address], [address] [place] [address] MCH (RBC) [Entitic mass] 32.3 pg Normal 27-34 [facility] Comment on above: Performed By: #### C BCA, CMP, FEPR, 75811-7, 7-1, 3-8, 5196-1, 2276-4, 2731-8, 2132-9, 2284-8, 17368-9 #### [facility] ([id number]) [address], [address] [place] [address] MCHC (RBC) [Mass/Vol] 34.3 g/dL Normal 32-36 [facility] Comment on above: Performed By: #### C BCA, CMP, FEPR, 79582-0, 7-1, 3-8, 6-1, 2276-4, 2731-8, 2-9, 2284-8, 28470-4 #### [facility] ([id number]) [address], [address] [place] [address] MCV (RBC) [Entitic vol] 94 fL Normal 80-100 [facility] Comment on above: Performed By: #### C BCA, CMP, FEPR, 58364-5, 7-1, 3-8, 6-1, 6-4, 2731-8, 2132-9, 2284-8, 45106-2 #### [facility] ([id number]) [address], [address] [place] [address] Monocytes (Bld) [#/Vol] 0.4 10*3/uL Normal 0-0.9 [facility] Comment on above: Performed By: #### C BCA, CMP, FEPR, 54846-6, 7-1, 3-8, 6-1, 2276-4, 2731-8, 2132-9, 2284-8, 89749-5 #### [facility] ([id number]) [address], [address] [place] [address] Monocytes/100 WBC (Bld) 8.3 % Normal [facility] Comment on above: Performed By: #### C BCA, CMP, FEPR, 45563-3, 2777-1, 5193-8, 5196-1, 2276-4, 2731-8, 2132-9, 2284-8, 72202-4 #### [facility] ([id number]) [address], [address] [place] [address] Neutrophils/100 WBC (Bld) 57.1 % Normal [facility] Comment on above: Performed By: #### C BCA, CMP, FEPR, 74673-4, 2777-1, 3-8, 5196-1, 2276-4, 2731-8, 2132-9, 2284-8, 01825-5 #### [facility] ([id number]) [address], [address] [place] [address] Platelet mean volume (Bld) [Entitic vol] 7.1 fL Normal 7-12 [facility] Comment on above: Performed By: #### C BCA, CMP, FEPR, 33620-8, 2777-1, 5193-8, 5196-1, 2276-4, 2731-8, 2132-9, 2284-8, 79514-4 #### [facility] ([id number]) [address] [place] [address] Platelets (Bld) [#/Vol] 270 10*3/uL Normal 150-450 [facility] Comment on above: Performed By: #### C BCA, CMP, FEPR, 74087-1, 2777-1, 5193-8, 5196-1, 2276-4, 2731-8, 2132-9, 2284-8, 40122-0 #### [facility] ([id number]) [address], [address] [place] [address] RBC COUNT 3.43 X10E12/L Low 3.80-5.20 [facility] Comment on above: Performed By: #### C BCA, CMP, FEPR, 63495-4, 2777-1, 5193-8, 5196-1, 2276-4, 2731-8, 2132-9, 2284-8, 78480-5 #### [facility] ([id number]) [address], [address] [place] [address] WBC (Bld) [#/Vol] 4.7 10*3/uL Normal 4.0-11.0 [facility] Comment on above: Performed By: #### C BCA, CMP, FEPR, 78061-2, 2777-1, 3-8, 5196-1, 2276-4, 2731-8, 2132-9, 2284-8, 90658-7 #### [facility] ([id number]) [address], [address] [place] [address] Calcium.ionized (Bld) [Moles /Vol]on 10-03-2023 PORTABLE ICA 4.8 mg/dL Normal 4.5-5.3 [facility] Comment on above: Performed By: #### C BCA, CMP, FEPR, 57653-0, 2777-1, 5193-8, 5196-1, 2276-4, 2731-8, 2132-9, 2284-8, 69371-2 #### [facility] ([id number]) [address], [address] [place] [address] PORTABLE ICA 4.6 mg/dL Normal 4.5-5.3 [facility] Comment on above: Performed By: #### C BCA, CMP, FEPR, 83119-6, 2777-1, 5193-8, 5196-1, 2276-4, 2731-8, 2132-9, 2284-8, 59657-3 #### [facility] ([id number]) [address] [place] [address] MAGNESIUMon 10-03-2023 Magnesium [Mass/Vol] 2.3 mg/dL Normal 1.8-2.6 [facility] Comment on above: Performed By: #### C BCA, CMP, FEPR, 17600-4, 7-1, 3-8, 5196-1, 2276-4, 2731-8, 213-9, 2284-8, 72843-6 #### [facility] ([id number]) [address], [address] [place] [address] PHOSPHORUSon 10-03-2023 Phosphate [Mass/Vol] 5.1 mg/dL High 2.4-4.9 [facility] Comment on above: Performed By: #### C BCA, CMP, FEPR, 57878-3, 7-1, 3-8, 6-1, 2276-4, 2731-8, 2-9, 4-8, 38428-8 #### [facility] ([id number]) [address], [address] [place] [address] BASIC METABOLIC PANLon 10-02 Anion gap [Moles/Vol] 11 mmol/L Normal 5-15 [facility] Comment on above: Performed By: #### C BCA, CMP, FEPR, 84638-8, 7-1, 3-8, 5196-1, 2276-4, 2731-8, 2132-9, 2284-8, 80980-4 #### [facility] ([id number]) [address] [place] [address] Calcium [Mass/Vol] 6.0 mg/dL Critically low 8.5-10.5 [facility] Comment on above: Performed By: #### C BCA, CMP, FEPR, 91715-8, 7-1, 5193-8, 5196-1, 2276-4, 2731-8, 2132-9, 2284-8, 15094-0 #### [facility] ([id number]) [address], [address] [place] [address] Chloride [Moles/Vol] 109 mmol/L Normal 98-109 [facility] Comment on above: Performed By: #### C BCA, CMP, FEPR, 78831-1, 2777-1, 5193-8, 5196-1, 2276-4, 2731-8, 2132-9, 2284-8, 95176-0 #### [facility] ([id number]) [address] [place] [address] CO2 [Moles/Vol] 20 mmol/L Low 22-32 [facility] Comment on above: Performed By: #### C BCA, CMP, FEPR, 98926-3, 7-1, 3-8, 5196-1, 2276-4, 2731-8, 2132-9, 2284-8, 54806-3 #### [facility] ([id number]) [address], [address] [place] [address] Creatinine [Mass/Vol] 3.80 mg/dL High 0.40-1.00 [facility] Comment on above: Result Comment: METH OD TRACEABLE TO IDMS STANDARD Performed By: #### C BCA, CMP, FEPR, 52065-8, 7-1, 5193-8, 5196-1, 2276-4, 2731-8, 2132-9, 2284-8, 94935-0 #### [facility] ([id number]) [address], [address] [place] [address] GFR/1.73 sq M.predicted among non-blacks MDRD (S/P/Bld) [Vol rate/Area] 13 mL/min/{1.73_m2} Low >59 [facility] Comment on above: Result Comment: Reported eGFR is based on the CKD-EPI 2020 equation that does not use a race coefficient. Performed By: #### C BCA, CMP, FEPR, 86380-6, 2777-1, 5193-8, 5196-1, 2276-4, 2731-8, 2132-9, 2284-8, 13373-4 #### [facility] ([id number]) [address] [place] [address] Glucose [Mass/Vol] 113 mg/dL High 65-99 [facility] Comment on above: Performed By: #### C BCA, CMP, FEPR, 47198-9, 2777-1, 5193-8, 5196-1, 2276-4, 2731-8, 2132-9, 2284-8, 70665-9 #### [facility] ([id number]) [address] [place] [address] Potassium [Moles/Vol] 3.5 mmol/L Normal 3.5-5.0 [facility] Comment on above: Performed By: #### C BCA, CMP, FEPR, 87023-7, 7-1, 3-8, 5196-1, 2276-4, 2731-8, 2-9, 2284-8, 24077-2 #### [facility] ([id number]) [address] [place] [address] Sodium [Moles/Vol] 140 mmol/L Normal 134-146 [facility] Comment on above: Performed By: #### C BCA, CMP, FEPR, 71591-3, 2777-1, 3-8, 5196-1, 2276-4, 2731-8, 2132-9, 2284-8, 63865-7 #### [facility] ([id number]) [address] [place] [address] Urea nitrogen [Mass/Vol] 24 mg/dL High 5-23 [facility] Comment on above: Performed By: #### C BCA, CMP, FEPR, 44514-2, 2777-1, 5193-8, 5196-1, 2276-4, 2731-8, 2132-9, 2284-8, 22651-0 #### [facility] ([id number]) [address] [place] [address] CBC AND AUTO DIFFon 10-02-19 24 ABSOLUTE BASOPHIL 0.0 X10E9/L Normal 0.0-0.2 [facility] Comment on above: Performed By: #### C BCA, CMP, FEPR, 87249-3, 2777-1, 5193-8, 5196-1, 2276-4, 2731-8, 2132-9, 2284-8, 26370-1 #### [facility] ([id number]) [address] [place] [address] ABSOLUTE NEUTROPHIL 2.5 X10E9/L Normal 1.5-6.6 [facility] Comment on above: Performed By: #### C BCA, CMP, FEPR, 39117-5, 2777-1, 5193-8, 5196-1, 2276-4, 2731-8, 2132-9, 2284-8, 53528-3 #### [facility] ([id number]) [address] [place] [address] Basophils/100 WBC (Bld) 0.7 % Normal [facility] Comment on above: Performed By: #### C BCA, CMP, FEPR, 71770-8, 2777-1, 5193-8, 5196-1, 2276-4, 2731-8, 2132-9, 2284-8, 45004-4 #### [facility] ([id number]) [address], [address] [place] [address] Eosinophils (Bld) [#/Vol] 0.1 10*3/uL Normal 0.0-0.4 [facility] Comment on above: Performed By: #### C BCA, CMP, FEPR, 68464-9, 2777-1, 5193-8, 5196-1, 2276-4, 2731-8, 2132-9, 2284-8, 58618-7 #### [facility] ([id number]) [address], [address] [place] [address] Eosinophils/100 WBC (Bld) 2.8 % Normal [facility] Comment on above: Performed By: #### C BCA, CMP, FEPR, 13877-3, 2777-1, 5193-8, 5196-1, 2276-4, 2731-8, 2132-9, 2284-8, 01836-5 #### [facility] ([id number]) [address], [address] [place] [address] Erythrocyte distribution width (RBC) [Ratio] 14.1 % Normal 11.5-15.0 [facility] Comment on above: Performed By: #### C BCA, CMP, FEPR, 05420-1, 2777-1, 5193-8, 5196-1, 2276-4, 2731-8, 2132-9, 2284-8, 12090-0 #### [facility] ([id number]) [address], [address] [place] [address] Hematocrit (Bld) [Volume fraction] 33.9 % Low 35-47 [facility] Comment on above: Performed By: #### C BCA, CMP, FEPR, 56088-3, 2777-1, 5193-8, 5196-1, 2276-4, 2731-8, 2132-9, 2284-8, 40140-6 #### [facility] ([id number]) [address] [place] [address] Hemoglobin (Bld) [Mass/Vol] 11.5 g/dL Low 11.7-15.5 [facility] Comment on above: Performed By: #### C BCA, CMP, FEPR, 56111-4, 2777-1, 5193-8, 5196-1, 2276-4, 2731-8, 2132-9, 2284-8, 73935-5 #### [facility] ([id number]) [address] [place] [address] Lymphocytes (Bld) [#/Vol] 1.1 10*3/uL Normal 1.0-3.5 [facility] Comment on above: Performed By: #### C BCA, CMP, FEPR, 43212-3, 2777-1, 5193-8, 5196-1, 2276-4, 2731-8, 2132-9, 2284-8, 54069-8 #### [facility] ([id number]) [address], [address] [place] [address] Lymphocytes/100 WBC (Bld) 27.7 % Normal [facility] Comment on above: Performed By: #### C BCA, CMP, FEPR, 85285-9, 2777-1, 5193-8, 5196-1, 2276-4, 2731-8, 2132-9, 2284-8, 00224-2 #### [facility] ([id number]) [address], [address] [place] [address] MCH (RBC) [Entitic mass] 31.6 pg Normal 27-34 [facility] Comment on above: Performed By: #### C BCA, CMP, FEPR, 85069-6, 2777-1, 5193-8, 5196-1, 2276-4, 2731-8, 2132-9, 2284-8, 60917-6 #### [facility] ([id number]) [address], [address] [place] [address] MCHC (RBC) [Mass/Vol] 33.9 g/dL Normal 32-36 [facility] Comment on above: Performed By: #### C BCA, CMP, FEPR, 99420-7, 2777-1, 5193-8, 5196-1, 2276-4, 2731-8, 2132-9, 2284-8, 24028-5 #### [facility] ([id number]) [address], [address] [place] [address] MCV (RBC) [Entitic vol] 93 fL Normal 80-100 [facility] [facility] Comment on above: Performed By: #### C BCA, CMP, FEPR, 13563-4, 2777-1, 5193-8, 5196-1, 2276-4, 2731-8, 2132-9, 2284-8, 18555-1 #### [facility] ([id number]) [address], [address] [place] [address] Monocytes (Bld) [#/Vol] 0.3 10*3/uL Normal 0-0.9 [facility] Comment on above: Performed By: #### C BCA, CMP, FEPR, 14954-9, 2777-1, 3-8, 5196-1, 2276-4, 2731-8, 2132-9, 2284-8, 23093-8 #### [facility] ([id number]) [address], [address] [place] [address] Monocytes/100 WBC (Bld) 8.5 % Normal [facility] Comment on above: Performed By: #### C BCA, CMP, FEPR, 02454-7, 2777-1, 3-8, 5196-1, 2276-4, 2731-8, 2132-9, 2284-8, 16361-5 #### [facility] ([id number]) [address], [address] [place] [address] Neutrophils/100 WBC (Bld) 60.3 % Normal [facility] Comment on above: Performed By: #### C BCA, CMP, FEPR, 28227-8, 7-1, 3-8, 5196-1, 2276-4, 2731-8, 2132-9, 2284-8, 80712-2 #### [facility] ([id number]) [address], [address] [place] [address] Platelet mean volume (Bld) [Entitic vol] 6.7 fL Low 7-12 [facility] Comment on above: Performed By: #### C BCA, CMP, FEPR, 10448-6, 2777-1, 5193-8, 5196-1, 2276-4, 2731-8, 2132-9, 2284-8, 89780-5 #### [facility] ([id number]) [address], [address] [place] [address] Platelets (Bld) [#/Vol] 271 10*3/uL Normal 150-450 [facility] Comment on above: Performed By: #### C BCA, CMP, FEPR, 20139-3, 7-1, 3-8, 6-1, 2276-4, 2731-8, 2132-9, 2284-8, 18915-3 #### [facility] ([id number]) [address], [address] [place] [address] RBC COUNT 3.64 X10E12/L Low 3.80-5.20 [facility] Comment on above: Performed By: #### C BCA, CMP, FEPR, 98017-4, 7-1, 3-8, 5196-1, 2276-4, 2731-8, 2132-9, 2284-8, 12918-1 #### [facility] ([id number]) [address], [address] [place] [address] WBC (Bld) [#/Vol] 4.1 10*3/uL Normal 4.0-11.0 [facility] Comment on above: Performed By: #### C BCA, CMP, FEPR, 95871-5, 2777-1, 3-8, 5196-1, 2276-4, 2731-8, 2132-9, 2284-8, 10202-2 #### [facility] ([id number]) [address], [address] [place] [address] Calcium.ionized (Bld) [Moles /Vol]on 10-02-2023 PORTABLE ICA 4.4 mg/dL Low 4.5-5.3 [facility] Comment on above: Performed By: #### C BCA, CMP, FEPR, 75198-0, 2777-1, 5193-8, 5196-1, 2276-4, 2731-8, 2132-9, 2284-8, 58423-2 #### [facility] ([id number]) [facility], [address] [place] [address] PORTABLE ICA 2.9 mg/dL Critically low 4.5-5.3 [facility] Comment on above: Performed By: #### C BCA, CMP, FEPR, 76463-8, 7-1, 3-8, 5196-1, 2276-4, 2731-8, 2132-9, 2284-8, 86189-4 #### [facility] ([id number]) [address], [address] [place] [address] MAGNESIUMon 10-02-2023 Magnesium [Mass/Vol] 1.7 mg/dL Low 1.8-2.6 [facility] Comment on above: Performed By: #### C BCA, CMP, FEPR, 94753-1, 2777-1, 5193-8, 5196-1, 2276-4, 2731-8, 2132-9, 2284-8, 03089-1 #### [facility] ([id number]) [address], [address] [place] [address] PHOSPHORUSon 10-02-2023 Phosphate [Mass/Vol] 4.0 mg/dL Normal 2.4-4.9 [facility] Comment on above: Performed By: #### C BCA, CMP, FEPR, 76482-9, 2777-1, 5193-8, 5196-1, 2276-4, 2731-8, 2132-9, 2284-8, 92643-1 #### [facility] ([id number]) [address], [address] [place] [address] TROPONIN Ion 10-02-2023 Troponin I.cardiac [Mass/Vol] ng/mL Normal 0.00-0.04 [facility] Comment on above: Performed By: #### C BCA, CMP, FEPR, 53783-0, 2777-1, 5193-8, 5196-1, 2276-4, 2731-8, 2132-9, 2284-8, 94165-4 #### [facility] ([id number]) [facility] [address], [address] [place] [address] Aluminum [Mass/Vol]on 2023 ALUMINUM <5.0 Normal 0.0-15.0 [facility] Comment on above: Result Comment: NOTE [...] developed and its performance characteristics determined by [facility]. It has not been cleared or approved by the U.S. Food and Drug Administration. This test was performed in a CLIA-certified laboratory and is intended for clinical purposes. Performed By: [facility] [address] [place] [address] Recorder [employer]ing: Familia Rodriguez MD, PhD CLIA Number: [id number] Performed By: #### C BCA, CMP, FEPR, 88685-4, 2777-1, 5193-8, 5196-1, 2276-4, 2731-8, 2132-9, 2284-8, 79103-6 #### [facility] ([id number]) [address], [address] [place] [address] CBC AND AUTO DIFFon 10-01-19 24 ABSOLUTE BASOPHIL 0.0 X10E9/L Normal 0.0-0.2 [facility] Comment on above: Performed By: #### C BCA, CMP, FEPR, 54734-8, 2777-1, 5193-8, 5196-1, 2276-4, 2731-8, 2132-9, 2284-8, 15909-1 #### [facility] ([id number]) [address], [address] [place] [address] ABSOLUTE NEUTROPHIL 2.7 X10E9/L Normal 1.5-6.6 [facility] Comment on above: Performed By: #### C BCA, CMP, FEPR, 99120-8, 2777-1, 5193-8, 5196-1, 2276-4, 2731-8, 2-9, 4-8, 75574-5 #### [facility] ([id number]) [address], [address] [place] [address] Basophils/100 WBC (Bld) 0.7 % Normal [facility] Comment on above: Performed By: #### C BCA, CMP, FEPR, 88572-5, 2777-1, 5193-8, 5196-1, 2276-4, 2731-8, 2-9, 4-8, 64401-8 #### [facility] ([id number]) [address], [address] [place] [address] Eosinophils (Bld) [#/Vol] 0.1 10*3/uL Normal 0.0-0.4 [facility] Comment on above: Performed By: #### C BCA, CMP, FEPR, 42198-7, 2777-1, 5193-8, 5196-1, 2276-4, 2731-8, 2132-9, 2284-8, 87152-2 #### [facility] ([id number]) [address], [address] [place] [address] Eosinophils/100 WBC (Bld) 2.1 % Normal [facility] Comment on above: Performed By: #### C BCA, CMP, FEPR, 05585-2, 2777-1, 5193-8, 5196-1, 2276-4, 2731-8, 2132-9, 2284-8, 79959-5 #### [facility] ([id number]) [address], [address] [place] [address] Erythrocyte distribution width (RBC) [Ratio] 13.7 % Normal 11.5-15.0 [facility] Comment on above: Performed By: #### C BCA, CMP, FEPR, 99920-6, 2777-1, 5193-8, 5196-1, 2276-4, 2731-8, 2132-9, 2284-8, 59386-1 #### [facility] ([id number]) [address], [address] [place] [address] Hematocrit (Bld) [Volume fraction] 33.7 % Low 35-47 [facility] Comment on above: Performed By: #### C BCA, CMP, FEPR, 07064-8, 2777-1, 5193-8, 5196-1, 2276-4, 2731-8, 2132-9, 2284-8, 60169-9 #### [facility] ([id number]) [address], [address] [place] [address] Hemoglobin (Bld) [Mass/Vol] 11.4 g/dL Low 11.7-15.5 [facility] Comment on above: Performed By: #### C BCA, CMP, FEPR, 42651-9, 2777-1, 5193-8, 5196-1, 2276-4, 2731-8, 2132-9, 2284-8, 71342-7 #### [facility] ([id number]) [address], [address] [place] [address] Lymphocytes (Bld) [#/Vol] 1.3 10*3/uL Normal 1.0-3.5 [facility] Comment on above: Performed By: #### C BCA, CMP, FEPR, 45630-3, 2777-1, 5193-8, 5196-1, 2276-4, 2731-8, 2132-9, 2284-8, 69404-6 #### [facility] ([id number]) [address], [address] [place] [address] Lymphocytes/100 WBC (Bld) 29.1 % Normal [facility] Comment on above: Performed By: #### C BCA, CMP, FEPR, 61563-2, 2777-1, 5193-8, 5196-1, 2276-4, 2731-8, 2132-9, 2284-8, 91379-1 #### [facility] ([id number]) [address], [address] [place] [address] MCH (RBC) [Entitic mass] 31.9 pg Normal 27-34 [facility] Comment on above: Performed By: #### C BCA, CMP, FEPR, 62164-1, 2777-1, 5193-8, 5196-1, 2276-4, 2731-8, 2132-9, 2284-8, 31542-4 #### [facility] ([id number]) [address], [address] [place] [address] MCHC (RBC) [Mass/Vol] 33.9 g/dL Normal 32-36 [facility] Comment on above: Performed By: #### C BCA, CMP, FEPR, 60888-8, 2777-1, 5193-8, 5196-1, 2276-4, 2731-8, 2132-9, 2284-8, 53146-4 #### [facility] ([id number]) [address], [address] [place] [address] MCV (RBC) [Entitic vol] 94 fL Normal 80-100 [facility] Comment on above: Performed By: #### C BCA, CMP, FEPR, 30647-9, 2777-1, 5193-8, 5196-1, 2276-4, 2731-8, 2132-9, 2284-8, 22518-2 #### [facility] ([id number]) [address], [address] [place] [address] Monocytes (Bld) [#/Vol] 0.4 10*3/uL Normal 0-0.9 [facility] Comment on above: Performed By: #### C BCA, CMP, FEPR, 91597-5, 2777-1, 5193-8, 5196-1, 2276-4, 2731-8, 2132-9, 2284-8, 02178-2 #### [facility] ([id number]) [address], [address] [place] [address] Monocytes/100 WBC (Bld) 9.4 % Normal [facility] Comment on above: Performed By: #### C BCA, CMP, FEPR, 19101-2, 2777-1, 5193-8, 5196-1, 2276-4, 2731-8, 2132-9, 2284-8, 06932-8 #### [facility] ([id number]) [address], [address] [place] [address] Neutrophils/100 WBC (Bld) 58.7 % Normal [facility] Comment on above: Performed By: #### C BCA, CMP, FEPR, 78983-7, 2777-1, 5193-8, 5196-1, 2276-4, 2731-8, 2132-9, 2284-8, 71443-6 #### [facility] ([id number]) [address], [address] [place] [address] Platelet mean volume (Bld) [Entitic vol] 7.2 fL Normal 7-12 [facility] Comment on above: Performed By: #### C BCA, CMP, FEPR, 22642-5, 2777-1, 5193-8, 5196-1, 2276-4, 2731-8, 2132-9, 2284-8, 43556-6 #### [facility] ([id number]) [address], [address] [place] [address] Platelets (Bld) [#/Vol] 289 10*3/uL Normal 150-450 [facility] Comment on above: Performed By: #### C BCA, CMP, FEPR, 85577-7, 2777-1, 5193-8, 5196-1, 2276-4, 2731-8, 2132-9, 2284-8, 63014-0 #### [facility] ([id number]) [address] [place] [address] RBC COUNT 3.58 X10E12/L Low 3.80-5.20 [facility] Comment on above: Performed By: #### C BCA, CMP, FEPR, 04930-9, 2777-1, 5193-8, 5196-1, 2276-4, 2731-8, 2132-9, 2284-8, 83272-3 #### [facility] ([id number]) [address], [address] [place] [address] WBC (Bld) [#/Vol] 4.6 10*3/uL Normal 4.0-11.0 [facility] Comment on above: Performed By: #### C BCA, CMP, FEPR, 16249-3, 2777-1, 3-8, 5196-1, 2276-4, 2731-8, 2132-9, 2284-8, 89318-9 #### [facility] ([id number]) [address], [address] [place] [address] COMPREHENSIVE METABOLIC PANE Juan Pablo 10-01-2023 Albumin [Mass/Vol] 3.9 g/dL Normal 3.2-5.3 [facility] Comment on above: Performed By: #### C BCA, CMP, FEPR, 51653-3, 2777-1, 5193-8, 5196-1, 2276-4, 2731-8, 2132-9, 2284-8, 26478-9 #### [facility] ([id number]) [address] [place] [address] ALP [Catalytic activity/Vol] 65 U/L Normal 39-130 [facility] Comment on above: Performed By: #### C BCA, CMP, FEPR, 46265-3, 2777-1, 5193-8, 5196-1, 2276-4, 2731-8, 2132-9, 2284-8, 11105-5 #### [facility] ([id number]) [address], [address] [place] [address] ALT [Catalytic activity/Vol] 22 U/L Normal 0-31 [facility] Comment on above: Performed By: #### C BCA, CMP, FEPR, 99233-9, 2777-1, 5193-8, 5196-1, 2276-4, 2731-8, 2132-9, 2284-8, 37279-2 #### [facility] ([id number]) [address] [place] [address] Anion gap [Moles/Vol] 14 mmol/L Normal 5-15 [facility] Comment on above: Performed By: #### C BCA, CMP, FEPR, 02518-7, 2777-1, 5193-8, 5196-1, 2276-4, 2731-8, 2132-9, 2284-8, 03792-4 #### [facility] ([id number]) [address], [address] [place] [address] AST [Catalytic activity/Vol] 25 U/L Normal 0-41 [facility] Comment on above: Performed By: #### C BCA, CMP, FEPR, 03067-6, 2777-1, 5193-8, 5196-1, 2276-4, 2731-8, 2132-9, 2284-8, 42161-4 #### [facility] ([id number]) [address] [place] [address] Bilirubin [Mass/Vol] 0.3 mg/dL Normal 0.3-1.2 [facility] Comment on above: Performed By: #### C BCA, CMP, FEPR, 55873-4, 2777-1, 3-8, 6-1, 2276-4, 2731-8, 2132-9, 2284-8, 50145-4 #### [facility] ([id number]) [address] [place] [address] Calcium [Mass/Vol] 5.5 mg/dL Critically low 8.5-10.5 [facility] Comment on above: Performed By: #### C BCA, CMP, FEPR, 94315-0, 2777-1, 3-8, 5196-1, 2276-4, 2731-8, 2-9, 4-8, 70881-3 #### [facility] ([id number]) [address] [place] [address] Chloride [Moles/Vol] 108 mmol/L Normal 98-109 [facility] Comment on above: Performed By: #### C BCA, CMP, FEPR, 75248-2, 2777-1, 3-8, 5196-1, 2276-4, 2731-8, 2132-9, 2284-8, 01307-7 #### [facility] ([id number]) [address] [place] [address] CO2 [Moles/Vol] 23 mmol/L Normal 22-32 [facility] Comment on above: Performed By: #### C BCA, CMP, FEPR, 22166-5, 2777-1, 5193-8, 5196-1, 2276-4, 2731-8, 2132-9, 2284-8, 04798-7 #### [facility] ([id number]) [address] [place] [address] Creatinine [Mass/Vol] 3.68 mg/dL High 0.40-1.00 [facility] Comment on above: Result Comment: METH OD TRACEABLE TO IDMS STANDARD Performed By: #### C BCA, CMP, FEPR, 23149-3, 2777-1, 5193-8, 5196-1, 2276-4, 2731-8, 2132-9, 2284-8, 49233-7 #### [facility] ([id number]) [address] [place] [address] GFR/1.73 sq M.predicted among non-blacks MDRD (S/P/Bld) [Vol rate/Area] 14 mL/min/{1.73_m2} Low >59 [facility] Comment on above: Result Comment: Reported eGFR is based on the CKD-EPI 2020 equation that does not use a race coefficient. Performed By: #### C BCA, CMP, FEPR, 95706-0, 2777-1, 5193-8, 5196-1, 2276-4, 2731-8, 2132-9, 2284-8, 82322-5 #### [facility] ([id number]) [address] [place] [address] Glucose [Mass/Vol] 90 mg/dL Normal 65-99 [facility] Comment on above: Performed By: #### C BCA, CMP, FEPR, 66883-1, 2777-1, 5193-8, 5196-1, 2276-4, 2731-8, 2132-9, 2284-8, 38986-6 #### [facility] ([id number]) [address] [place] [address] Potassium [Moles/Vol] 3.6 mmol/L Normal 3.5-5.0 [facility] Comment on above: Performed By: #### C BCA, CMP, FEPR, 05614-7, 2777-1, 5193-8, 5196-1, 2276-4, 2731-8, 2132-9, 2284-8, 76943-7 #### [facility] ([id number]) [address] [place] [address] Protein [Mass/Vol] 6.4 g/dL Normal 6.0-8.0 [facility] Comment on above: Performed By: #### C BCA, CMP, FEPR, 59046-8, 2777-1, 5193-8, 5196-1, 2276-4, 2731-8, 2132-9, 2284-8, 31760-0 #### [facility] ([id number]) [address] [place] [address] Sodium [Moles/Vol] 145 mmol/L Normal 134-146 [facility] Comment on above: Performed By: #### C BCA, CMP, FEPR, 28090-0, 2777-1, 5193-8, 5196-1, 2276-4, 2731-8, 2132-9, 2284-8, 77813-1 #### [facility] ([id number]) [address] [place] [address] Urea nitrogen [Mass/Vol] 20 mg/dL Normal 5-23 [facility] Comment on above: Performed By: #### C BCA, CMP, FEPR, 40000-9, 2777-1, 5193-8, 5196-1, 2276-4, 2731-8, 2132-9, 2284-8, 41416-2 #### [facility] ([id number]) [address] [place] [address] FERRITINon 10-01-2023 Ferritin [Mass/Vol] 90 ng/mL Normal 11-307 [facility] Comment on above: Performed By: #### C BCA, CMP, FEPR, 89090-5, 2777-1, 5193-8, 5196-1, 2276-4, 2731-8, 2132-9, 2284-8, 71818-6 #### [facility] ([id number]) [address] [place] [address], [address] [place] [address] Folate [Mass/Vol]on 10-01-19 24 FOLIC ACID >25.0 Normal >5.8 [facility] Comment on above: Result Comment: NEW REFERENCE RANGE Performed By: #### C BCA, CMP, FEPR, 49565-2, 7-1, 5193-8, 5196-1, 2276-4, 2731-8, 2132-9, 2284-8, 36729-6 #### [facility] ([id number]) [address] [place] [address], [facility] [address] [place] [address] HBV surface Ab IA Qnon 10-01 Anti HBs quant. 164.94 mIU/mL Normal [facility] Comment on above: Result Comment: Vacc inated: >=12mIU/mL, Positive (Immune) Unvaccinated: <8mIU/mL, Negative (Not Immune) 8-11.99 mIU/mL: Indeterminate, (Considered Not Immune) Performed By: #### C BCA, CMP, FEPR, 08196-1, 2777-1, 5193-8, 5196-1, 2276-4, 2731-8, 2132-9, 2284-8, 72494-7 #### [facility] ([id number]) [address] [place] [address], [address] [place] [address] HBV surface Ag IA Qlon 10-01 HEPATITIS B SURF AG Negative Normal NEG [facility] Comment on above: Performed By: #### C BCA, CMP, FEPR, 66508-8, 2777-1, 3-8, 5196-1, 2276-4, 2731-8, 2132-9, 2284-8, 62848-3 #### [facility] ([id number]) [address] [place] [address], [address] [place] [address] IRON PROFILEon 10-01-2023 Iron [Mass/Vol] 66 ug/dL Normal 50-170 [facility] Comment on above: Performed By: #### C BCA, CMP, FEPR, 62483-4, 7-1, 3-8, 5196-1, 2276-4, 2731-8, 2132-9, 2284-8, 24832-7 #### [facility] ([id number]) [address] [place] [address], [address] [place] [address] IRON BINDING 206 ug/dL Low 250-425 [facility] Comment on above: Performed By: #### C BCA, CMP, FEPR, 45864-2, 2776-1, 3-8, 6-1, 2276-4, 2731-8, 2132-9, 2284-8, 07498-5 #### [facility] ([id number]) [address] [place] [address], [address] [place] [address] IRON SATURATION 32 % SATURATION Normal 15-50 [facility] Comment on above: Performed By: #### C BCA, CMP, FEPR, 00896-1, 2776-1, 3-8, 6-1, 2276-4, 2731-8, 2132-9, 2284-8, 14421-1 #### [facility] ([id number]) [address] [place] [address], [address] [place] [address] MAGNESIUMon 10-01-2023 Magnesium [Mass/Vol] 1.6 mg/dL Low 1.8-2.6 [facility] Comment on above: Performed By: #### C BCA, CMP, FEPR, 09776-1, 7-1, 3-8, 6-1, 2276-4, 2731-8, 2132-9, 2284-8, 64513-3 #### [facility] ([id number]) [address], [address] [place] [address] PHOSPHORUSon 10-01-2023 Phosphate [Mass/Vol] 3.5 mg/dL Normal 2.4-4.9 [facility] Comment on above: Performed By: #### C BCA, CMP, FEPR, 71101-2, 2777-1, 5193-8, 5196-1, 2276-4, 2731-8, 2132-9, 2284-8, 89665-6 #### [facility] ([id number]) [address], [address] [place] [address] Parathyrin.intact [Mass/Vol] on 10-01-2023 PTH INTACT 753 pg/mL High 12-88 [facility] Comment on above: Performed By: #### C BCA, CMP, FEPR, 54072-8, 2777-1, 5193-8, 5196-1, 2276-4, 2731-8, 2132-9, 2284-8, 90794-6 #### [facility] ([id number]) [address], [address] [place] [address] VITAMIN B12on 10-01-2023 Cobalamin (Vitamin B12) [Mass/Vol] 184 pg/mL Normal 180-914 [facility] Comment on above: Performed By: #### C BCA, CMP, FEPR, 21249-2, 2777-1, 5193-8, 5196-1, 2276-4, 2731-8, 2132-9, 2284-8, 18630-1 #### [facility] ([id number]) [address], [address] [place] [address] Vitamin D+Metabolites [Mass/ Vol]on 10-01-2023 VITAMIN D 25 HYD TOT 49.8 ng/mL Normal 30-100 [facility] Comment on above: Result Comment: Vitamin D status 25 [place] Vitamin D Deficiency <20 ng/mL Insufficiency 20-29 ng/mL Sufficiency 30-100 ng/mL Toxicity >100 ng/mL NOTE: A pediatric reference range has not been established by the landfill gas collection operator of this kit. The [place] [employer] recommends a Vitamin D level of = or >20ng/mL in infants and children. Performed By: #### C BCA, CMP, FEPR, 21963-0, 2777-1, 5193-8, 5196-1, 2276-4, 2731-8, 2132-9, 2284-8, 96227-7 #### [facility] ([id number]) [address] [place] [address], [address] [place] [address] Physician Referralon 024 Physician Referral [phone] [id number] IFF Normal [facility] B-TYPE NATRIURETIC PEPTIDEon 09-04-2023 Natriuretic peptide B (Bld) [Mass/Vol] 27 pg/mL Normal 0-100 [facility] Comment on above: Performed By: #### L [id number] #### [facility] ([facility]) [address] [place] [address] BILIRUBIN, DIRECTon 09-04-20 23 Magnesium [Mass/Vol] 0.1 mg/dL Normal 0-0.2 [facility] Comment on above: Performed By: #### L [id number] #### [facility] ([facility]) [address] [place] [address] CBC WITH AUTO DIFFERENTIALon 09-04-2023 Basophils (Bld) [#/Vol] 0.03 10*3/uL Normal 0.00-0.20 [facility] Comment on above: Performed By: #### L [id number] ####[facility] ([facility])[address] [place] [address] Basophils/100 WBC (Bld) 0.6 % Normal 0.0-1.0 [facility] Comment on above: Performed By: #### L [id number] ####[facility] ([facility])[address] [place] [address] Eosinophils (Bld) [#/Vol] 0.05 10*3/uL Normal 0.00-0.50 [facility] Comment on above: Performed By: #### L [id number] ####[facility] [place] [address] Eosinophils/100 WBC (Bld) 1.0 % Normal 0.0-6.0 [facility] Comment on above: Performed By: #### L [id number] ####[facility] ([facility])[address] [place] [address] Erythrocyte distribution width (RBC) [Ratio] 13.3 % Normal 11.5-15.0 [facility] Comment on above: Performed By: #### L [id number] ####[facility] ([facility])[address] [place] [address] ERYTHROCYTE MEAN CORPUSCULAR HEMOGLOBIN CONCENTRATION (G/DL) BY AUTOMATED 32.4 g/dL Normal 32.0-35.0 [facility] Comment on above: Performed By: #### L [id number] ####[facility] ([facility] [place] [address] Hematocrit (Bld) [Volume fraction] 37.0 % Normal 36.0-48.0 [facility] Comment on above: Performed By: #### L [id number] ####[facility] ([facility] [place] [address] Hemoglobin (Bld) [Mass/Vol] 12.0 g/dL Normal 12.0-15.0 [facility] Comment on above: Performed By: #### L [id number] ####[facility] ([facility])[address] [place] [address] Immature granulocytes (Bld) [#/Vol] 0.02 10*3/uL Normal 0.00-0.20 [facility] Comment on above: Performed By: #### L [id number] ####[facility] ([facility])[address] [place] [address] Immature granulocytes/100 WBC (Bld) 0.4 % Normal 0.0-1.0 [facility] Comment on above: Performed By: #### L [id number] ####[facility] ([facility])[address] [place] [address] Lymphocytes (Bld) [#/Vol] 1.05 10*3/uL Low 1.20-4.00 [facility] Comment on above: Performed By: #### L [id number] ####[facility] ([facility])[address] [place] [address] Lymphocytes/100 WBC (Bld) 20.2 % Normal 20.0-45.0 [facility] Comment on above: Performed By: #### L [id number] ####[facility] ([facility])[address] [facility] [place] [address] MCH (RBC) [Entitic mass] 31.3 pg Normal 27.0-33.0 [facility] Comment on above: Performed By: #### L [id number] ####[facility] ([facility])[address] [place] [address] MCV (RBC) [Entitic vol] 96.6 fL Normal 82.0-98.0 [facility] Comment on above: Performed By: #### L [id number] ####[facility] ([facility] [place] [address] Monocytes (Bld) [#/Vol] 0.45 10*3/uL Normal 0.10-1.00 [facility] Comment on above: Performed By: #### L [id number] ####[facility] ([facility])[address] [place] [address] Monocytes/100 WBC (Bld) 8.7 % Normal 5.0-12.0 [facility] Comment on above: Performed By: #### L [id number] ####[facility] ([facility])[address] [place] [address] Neutrophils (Bld) [#/Vol] 3.60 10*3/uL Normal 1.60-7.60 [facility] Comment on above: Performed By: #### L [id number] ####[facility] ([facility])[address] [place] [address] Neutrophils/100 WBC (Bld) 69.1 % Normal 40.0-72.0 [facility] Comment on above: Performed By: #### L [id number] ####[facility] ([facility])[address] [place] [address] NRBC (PER 100 WBCS) BY AUTOMATED COUNT 0.0 % Normal 0 [facility] Comment on above: Performed By: #### L [id number] ####[facility] ([facility])[address] [place] [address] PLATELETS (10*3/UL) IN BLOOD AUTOMATED COUNT 274 10*3/uL Normal 150-400 [facility] Comment on above: Performed By: #### L [id number] ####[facility] ([facility])[address] [place] [address] RBC (Bld) [#/Vol] 3.83 10*6/uL Normal 3.80-5.00 [facility] Comment on above: Performed By: #### L [id number] ####[facility] ([facility])[address] [address] WBC (Bld) [#/Vol] 5.20 10*3/uL Normal 4.00-10.60 [facility] Comment on above: Performed By: #### L [id number] ####[facility] ([facility])[address] [place] [address] CMV IGMon 09-04-2023 CMV IGM <8.0 Normal <=29.9 [facility] Comment on above: Result Comment: INTE [...] Cellular and Tissue-Based Products (HCT/P). Performed By: [facility] [address] [place] [address] Recorder [employer]: Familia Rodriguez MD, PhD CLIA Number: [id number] Performed By: #### L [id number] ####[facility] ([facility])[address] [place], [place] [id number] COMPREHENSIVE METABOLIC PANE [facility] 09-04-2023 Albumin [Mass/Vol] 4.5 g/dL Normal 3.5-5.7 [facility] Comment on above: Performed By: #### L [id number] #### [facility]OD [facility] , ALP [Catalytic activity/Vol] 67 U/L Normal 34-104 [facility] Comment on above: Performed By: #### L [id number] #### [facility] , ALT [Catalytic activity/Vol] 17 U/L Normal 7-52 [facility] Comment on above: Performed By: #### L [id number] #### [facility] , Anion gap [Moles/Vol] 15 mmol/L Normal 7-20 [facility] Comment on above: Performed By: #### L [id number] #### [facility] , AST [Catalytic activity/Vol] 19 U/L Normal 13-39 [facility] Comment on above: Performed By: #### L [id number] #### [facility] , Bilirubin [Mass/Vol] 0.3 mg/dL Normal 0.3-1.0 [facility] Comment on above: Performed By: #### L [id number] #### [facility] , Calcium [Mass/Vol] 9.5 mg/dL Normal 8.6-10.3 [facility] Comment on above: Performed By: #### L [id number] #### [facility] , Chloride [Moles/Vol] 105 mmol/L Normal 98-107 [facility] Comment on above: Performed By: #### L [id number] #### [facility] , CO2 [Moles/Vol] 25 mmol/L Normal 21-31 [facility] Comment on above: Performed By: #### L [id number] #### [facility] , Creatinine [Mass/Vol] 4.71 mg/dL High 0.60-1.20 [facility] Comment on above: Performed By: #### L [id number] #### [facility] , GLOMERULAR FILTRATION RATE ML/MIN/1.73 SQ M.PREDICTED 10.0 mL/min/1.73m*2 Low >60.0 [facility] Comment on above: Result Comment: [facility]???s estimated glomerular filtration rate (eGFR) will [...] group of individuals. Performed By: #### L [id number] #### [facility] , Glucose [Mass/Vol] 141 mg/dL High 70-100 [facility] Comment on above: Performed By: #### L [id number] #### [facility] , Potassium [Moles/Vol] 3.8 mmol/L Normal 3.5-5.1 [facility] Comment on above: Performed By: #### L [id number] #### [facility] , Protein [Mass/Vol] 6.4 g/dL Normal 6.0-8.3 [facility] Comment on above: Performed By: #### L [id number] #### [facility] , Sodium [Moles/Vol] 141 mmol/L Normal 136-145 [facility] Comment on above: Performed By: #### L [id number] #### [facility] , Urea nitrogen [Mass/Vol] 27 mg/dL High 7-25 [facility] Comment on above: Performed By: #### L [id number] #### [facility] , UREA NITROGEN/CREATININE (MASS RATIO) IN SER/PLAS 5.7 Normal [facility] Comment on above: Performed By: #### L [id number] #### [facility] , CREATININE, URINE, RANDOMon 09-04-2023 Creatinine (U) [Mass/Vol] 176.0 mg/dL Normal 26-299 [facility] Comment on above: Performed By: #### L [id number] #### [facility] (BEAKER) [address] [place] [address] CT ABDOMEN PELVIS WO RENAL R ECIPIENTon [...] contrast MRI Electronically signed: Chet Tirado. Normal [facility] CYTOMEGALOVIRUS ANTIBODY, IG Dominick 09-04-2023 CMV IGG <0.20 Normal <=0.70 [facility] Comment on above: Result Comment: INTE [...] laboratory at the same time. Performed By: [facility] [address] [place] [id number] Recorder [employer]: Familia Rodriguez MD, PhD CLIA Number: [id number] Performed By: #### L [id number] ####[employer] ([place])[address] [place] [id number] CYTOMEGALOVIRUS IGG ANTIBODY 0.36 Normal <1.10 [facility] Comment on above: Result Comment: NORM AL RANGES: < OR = 0.90 NEGATIVE ; NO DETECTABLE IgG ANTIBODY TO CMV 0.91 - 1.09 EQUIVOCAL; REPEAT TESTING SUGGESTED > OR = 1.10 POSITIVE ; INDICATES PRESENCE OF DETECTABLE IgG ANTIBODY TO CMV Performed By: #### L [id number] ####[facility] ([facility])[address] [place] [address] Clinical Supporton Clinical Support [phone] Faith Zambranomartha jones 1965 F Date Provider Department Center 09/04/2023 SARA CARTER TXCristian None Family History Problem Relation Age of Onset Cancer Father Breast cancer Mother's Sister Breast cancer Cousin Family Status - Relation Status Age at Father Mother's Sister Cousin Alive Level of Service:[id number] [place] OFFICE/OUTPATIENT NEW MODERATE MDM 45 MINUTES Reason for Visit and Comments: Kidney Transplant [[id number]] - Evaluation Normal [facility] ANNETTA-CASTANO VIRUS VCA ANTIB DEEPAK PANELon 09-04-2023 ANNETTA-CASTANO VCA IGG 2.05 High <1.10 [facility] Comment on above: Order Comment: Consi stent with past EBV infection. Performed By: #### L [id number] #### [facility] ([facility]) [address] [place] [address] ANNETTA-CASTANO VCA IGM 0.32 Normal <1.10 [facility] Comment on above: Order Comment: Consi stent with past EBV infection. Result Comment: NORM AL RANGES: < OR = 0.90 NEGATIVE ; NO DETECTABLE IgG/IgM ANTIBODY TO EBV-VCA 0.91 - 1.09 EQUIVOCAL; REPEAT TESTING SUGGESTED > OR = 1.10 POSITIVE ; INDICATES PRESENCE OF DETECTABLE IgG/IgM ANTIBODY TO EBV Performed By: #### L [id number] #### [facility] ([facility]) [address] [place] [address] HEMOGLOBIN A1Con 09-04-2023 Glucose [Mass/Vol] 108 mg/dL Normal [facility] Comment on above: Performed By: #### L [id number] #### [facility] ([facility]) [address] [place] [address] HbA1c (Bld) [Mass fraction] 5.4 % Normal 4.0-6.0 [facility] Comment on above: Performed By: #### L [id number] #### [facility] ([facility]) [address] [place] [address] HEPATITIS A ANTIBODY, IGMon 09-04-2023 HEPATITIS A VIRUS IGM AB PRESENCE IN SER/PLAS Non-Reactive Normal Nonreactive [facility] Comment on above: Performed By: #### L [id number] #### [facility] ([facility]) [address] [place] [address] HEPATITIS B CORE ANTIBODY, I GMon 09-04-2023 HEPATITIS B VIRUS CORE IGM AB PRESENCE IN SER/PLAS BY IMMUNOASSY Negative Normal Negative [facility] Comment on above: Result Comment: INTE RPRETIVE INFORMATION: Hepatitis B Core Ab, IgM This assay should not be used for blood donor screening, associated re-entry protocols, or for screening Human Cells, Tissues and Cellular and Tissue-Based Products (HCT/P). Performed By: [facility] [address] [place] [id number] Recorder [employer]: Familia Rodriguez MD, PhD CLIA Number: [id number] Performed By: #### L [id number] #### [facility] ([facility]) [address] [place] [address] HEPATITIS B CORE ANTIBODY, T OTALon 09-04-2023 HEPATITIS B VIRUS CORE AB (PRESENCE) IN SER/PLAS BY IMM Non-Reactive Normal Nonreactive [facility] Comment on above: Performed By: #### L [id number] #### [facility] ([facility]) [address] [place] [address] HEPATITIS B SURFACE ANTIBODY QUANTon 09-04-2023 HEPATITIS B VIRUS SURFACE AB (MIU/ML) IN SERUM 309.77 mIU/mL Normal [facility] Comment on above: Result Comment: INTE RPRETATION: NONREACTIVE<8.00 mIU/mL INDETERMINATE8.00 - 12.00 mIU/mL REACTIVE>12 mIU/mL Performed By: #### L [id number] #### [facility] ([facility]) [address] [place] [address] HEPATITIS B SURFACE ANTIGENo n 09-04-2023 HEPATITIS B VIRUS SURFACE AG PRESENCE IN SERUM Non-Reactive Normal Nonreactive [facility] Comment on above: Performed By: #### L [id number] #### [facility] ([facility]) [address] [place] [address] HEPATITIS C ANTIBODYon 09-04 HEPATITIS C VIRUS AB PRESENCE IN SERUM Non-Reactive Normal Nonreactive [facility] Comment on above: Performed By: #### L [id number] ####[facility] ([facility])[address] [place] [address] HIV COMBO 4Gon 09-04-2023 HIV COMBO 4G Negative Normal Negative [facility] Comment on above: Performed By: #### L [id number] #### [facility] ([facility]) [address] [place] [address] HLA ABC CLASS I TYPINGon A*-1 2 [facility] Comment on above: Performed By: #### L [id number] #### [facility] , A*-2 3 [facility] Comment on above: Performed By: #### L [id number] #### [facility] , B*-1 35 [facility] Comment on above: Performed By: #### L [id number] #### [facility] , B*-2 60 [facility] Comment on above: Performed By: #### L [id number] #### [facility] , BW*-1 6 [facility] Comment on above: Performed By: #### L [id number] #### [facility] , C*-1 10 [facility] Comment on above: Performed By: #### L [id number] #### [facility] , C*-2 4 [facility] Comment on above: Performed By: #### L [id number] #### [facility] , HLA ABC CLASS I TYPING TEST METHOD Class I typing by PCR-SSOP [employer] [facility] Comment on above: Performed By: #### L [id number] #### [facility] , HLA ABC TESTED DATE [id number] [facility] Comment on above: Performed By: #### L [id number] #### [facility] , HLA DR CLASS II TYPINGon DPB1*-1 04:01 [facility] Comment on above: Performed By: #### L [id number] #### [facility] , DPB1*-2 04:02 [facility] Comment on above: Performed By: #### L [id number] #### [facility] , DQA1*-1 01 [facility] Comment on above: Performed By: #### L [id number] #### [facility] , DQA1*-2 03 [facility] Comment on above: Performed By: #### L [id number] #### [facility] , DQB1*-1 7 [facility] Comment on above: Performed By: #### L [id number] #### [facility] , DQB1*-2 5 [facility] Comment on above: Performed By: #### L [id number] #### [facility] , DRB1*-1 1 [facility] Comment on above: Performed By: #### L [id number] #### [facility] , DRB1*-2 4 [facility] Comment on above: Performed By: #### L [id number] #### [facility] , DRB4*-1 53 [facility] Comment on above: Performed By: #### L [id number] #### [facility]OD [facility] , HLA DR CLASS II TYPING TEST METHOD Class II typing by PCR-SSOP [employer] [facility] Comment on above: Performed By: #### L [id number] #### [facility]OD [facility] , HLA DR TESTED DATE [id number] [facility] Comment on above: Performed By: #### L [id number] #### [facility] , LIPID PANELon 09-04-2023 CHOL/HDL 2.8 mg/dL Normal [facility] Comment on above: Performed By: #### L [id number] #### [facility] , Cholesterol [Mass/Vol] 123 mg/dL Normal 120-200 [facility] Comment on above: Performed By: #### L [id number] #### [facility]OD [facility] , Magnesium [Mass/Vol] 256 mg/dL High 40-149 [facility] Comment on above: Result Comment: TRIG LYCERIDE REFERENCE RANGE: 20 YEARS AND OLDER CARDIOVASCULAR RISK LESS THAN 150 mg/dL LOW RISK 150 TO 199 mg/dL BORDERLINE RISK 200 mg/dL AND GREATER HIGH RISK Performed By: #### L [id number] #### [facility] , Magnesium [Mass/Vol] 28 mg/dL Normal 0-160 [facility] Comment on above: Performed By: #### L [id number] #### [facility] , Magnesium [Mass/Vol] 44 mg/dL Normal 23-92 [facility] Comment on above: Performed By: #### L [id number] #### [facility]OD [facility] , NON HDL CHOL. (LDL+VLDL) 79 Normal [facility] Comment on above: Performed By: #### L [id number] #### [facility]OD [facility] , TOTAL VLDL-C 51 mg/dL High 0-40 [facility] Comment on above: Performed By: #### L [id number] #### [facility]LOOD [facility] , MUMPS ANTIBODY, IGGon 2022 MUMPS IGG ANTIBODY 1.[address] [facility] Comment on above: Result Comment: NORM AL RANGES: < OR = 0.90 NEGATIVE ; NO DETECTABLE IgG ANTIBODY TO MUMPS 0.91 - 1.09 EQUIVOCAL; REPEAT TESTING SUGGESTED > OR = 1.10 POSITIVE ; INDICATES PRESENCE OF DETECTABLE IgG ANTIBODY TO MUMPS Performed By: #### L [id number] #### [facility]OSP[facility] (BEAKER) [address] [place] [address] PANEL REACTIVE ANTIBODYon HOLD SPECIMEN Hold for add-ons. Normal [facility] Comment on above: Result Comment: Auto resulted. Performed By: #### L [id number] ####[facility] TISSUE TYPING (HISTOTRAC)[address] [place] [address] [facility] PROTEIN, URINE, RANDOMon Protein (U) [Mass/Vol] 489.7 mg/dL Normal [facility] Comment on above: Result Comment: Ther e are no established reference values for random urine specimens. Performed By: #### L [id number] #### [facility] ([facility]) [address] [place] [address] PROTIME-INRon 09-04-2023 INR IN PPP BY COAGULATION ASSAY 1.01 Normal 0.90-1.10 [facility] Comment on above: Result Comment: ACCC P RECOMMENDED INR FOR WARFARIN THERAPY CONDITION [...] RANGE. CHEST 1995;108:231S-246S. Performed By: #### L [id number] #### [facility] ([facility]) [address] [place] [address] PROTHROMBIN TIME (PT) IN PPP BY COAGULATION ASSAY 13.3 Seconds Normal 12.3-14.8 [facility] Comment on above: Performed By: #### L [id number] #### [facility] ([facility]) [address] [place] [address] QUANTIFERON TB GOLDon 2022 MITOGEN MINUS NIL >10.00 Normal [facility] Comment on above: Performed By: #### L [id number] #### [facility]OD [facility] , NIL 0.03 IU/mL Normal [facility] Comment on above: Performed By: #### L [id number] #### [facility] BLOOD [facility] , QUANTIFERON - TB GOLD TEST Negative Normal Negative [facility] Comment on above: Result Comment: Stevan tiferon TB Gold Interpretation (IU/mL): NEGATIVE: M. tuberculosis infection not likely. Nil: <=8.0 TB1 Antigen minus Nil ([id number]): <0.35 OR >=0.35; and <25% of Nil value. TB2 Antigen minus Nil ([id number]): <0.35 OR >=0.35; and <25% of Nil value. Performed By: #### L [id number] #### [facility]OD [facility] , TB1 AG 0.03 IU/mL Normal [facility] Comment on above: Performed By: #### L [id number] #### [facility] BLOOD [facility] , TB1 AG MINUS NIL 0.00 IU/mL Normal [facility] Comment on above: Performed By: #### L [id number] #### [facility] B[facility]OD [facility] , TB2 AG 0.02 IU/mL Normal [facility] Comment on above: Performed By: #### L [id number] #### [facility] B[facility]OD [facility] , TB2 AG MINUS NIL -0.01 IU/mL Normal [facility] Comment on above: Performed By: #### L [id number] #### [facility] BLOOD [facility] , RUBELLA ANTIBODY, IGGon 08-24 RUBELLA VIRUS IGG AB (IU/ML) IN SERUM 3.45 Normal [facility] Comment on above: Result Comment: NORM AL RANGES: < OR = 0.90 NEGATIVE ; NO DETECTABLE IgG ANTIBODY TO RUBELLA 0.91 - 1.09 EQUIVOCAL; REPEAT TESTING SUGGESTED > OR = 1.10 POSITIVE ; INDICATES PRESENCE OF DETECTABLE IgG ANTIBODY TO RUBELLA VIRUS Performed By: #### L [id number] ####[facility] ([facility])[address] [place] [address] RUBE[place]A ANTIBODY IGGon 09-04 RUBE[place] IGG ANTIBODY 4.98 Normal [facility] Comment on above: Result Comment: NORM AL RANGES: < OR = 0.90 NEGATIVE ; NO DETECTABLE IgG ANTIBODY TO RUBEOLA 0.91 - 1.09 EQUIVOCAL; REPEAT TESTING SUGGESTED > OR = 1.10 POSITIVE ; INDICATES PRESENCE OF DETECTABLE IgG ANTIBODY TO RUBEOLA Performed By: #### L [id number] ####[facility] [place] [address] SINGLE ANTIGEN CLASS Ion AB SCREEN COMMENTS No Specificites Found [facility] Comment on above: Performed By: #### L [id number] #### [facility] BLOOD [facility] , CLASS I TESTED DATE Normal [place] Comment on above: Performed By: #### L [id number] #### [facility] BLOOD [facility] , CPRA 0 [facility] Comment on above: Performed By: #### L [id number] #### [facility] BLOOD [facility] , SIGNED BY Signed by Sara galindo CHT([facility]) KRISHNA([facility]), Facility Practice Specialist Transplant Immunology [facility] Comment on above: Result Comment: Clas s I Antigen Microbeads Performed By: #### L [id number] #### [facility] BLOOD [facility] , SINGLE ANTIGEN CLASS 1 TEST METHOD Class I Single Antigen Normal [facility] Comment on above: Performed By: #### L [id number] #### [facility] BLOOD [facility] , SINGLE ANTIGEN CLASS IIon CLASS II TESTED DATE [facility] Comment on above: Performed By: #### L [id number] #### [facility] BLOOD [facility] , SINGLE ANTIGEN CLASS 2 TEST METHOD Class II Single Antigen Normal [facility] Comment on above: Result Comment: Clas s II Antigen Microbeads Performed By: #### L [id number] #### [facility] B[facility]OD [facility] , TYPE AND SCREENon 09-04-2023 AB SCREEN Negative Normal [facility] Comment on above: Performed By: #### L [id number] #### [facility] BLOOD [facility] , ABO group Nom (Bld) B Normal [facility] Comment on above: Performed By: #### L [id number] #### [facility]OD [facility] , RH TYPE IN BLOOD Positive Normal [facility] Comment on above: Performed By: #### L [id number] #### [facility]OD [facility] , URINALYSIS WITH MICROSCOPICo n 09-04-2023 BILIRUBIN, TOTAL PRESENCE IN URINE Negative Normal Negative [facility] Comment on above: Performed By: #### L [id number] #### [facility] BLOOD [facility] , Clarity (U) Cloudy Abnormal Clear [facility] Comment on above: Performed By: #### L [id number] #### [facility] BLOOD [facility] , Color (U) Camila Abnormal Yellow [facility] Comment on above: Performed By: #### L [id number] #### [facility] BLOOD [facility] , Glucose (U) [Mass/Vol] Negative Normal Negative [facility] Comment on above: Performed By: #### L [id number] #### [facility] BLOOD [facility] , HEMOGLOBIN PRESENCE IN URINE Negative Normal Negative [facility] Comment on above: Performed By: #### L [id number] #### [facility] BLOOD [facility] , Ketones Ql (U) Negative Normal Negative [facility] Comment on above: Performed By: #### L [id number] #### [facility] BLOOD B[facility] , LEUKOCYTE ESTERASE PRESENCE IN URINE BY TEST STRIP Large Abnormal Negative [facility] Comment on above: Performed By: #### L [id number] #### [facility] BLOOD [facility] , NITRITE PRESENCE IN URINE Negative Normal Negative [facility] Comment on above: Performed By: #### L [id number] #### [facility] BLOOD BANK , pH (U) 5.0 [pH] Normal 5.0-8.0 [facility] Comment on above: Performed By: #### L [id number] #### [facility]OD [facility] , Protein (U) [Mass/Vol] mg/dL Abnormal Negative [facility] Comment on above: Performed By: #### L [id number] #### [facility] B[facility]OD [facility] , RBC (#/HPF) IN URINE SEDIMENT 3-5 Abnormal None Seen [facility] Comment on above: Performed By: #### L [id number] #### [facility]OD [facility] , Specific gravity (U) [Rel density] 1.015 Normal 1.015-1.020 [facility] Comment on above: Performed By: #### L [id number] #### [facility] BLOOD [facility] , SQUAMOUS EPITHELIAL CELLS (#/HPF) IN URINE SEDIMENT Many Abnormal None Seen, Occasional [facility] Comment on above: Performed By: #### L [id number] #### [facility] B[facility]OD [facility] , WBC (LEUKOCYTE) (#/HPF) IN URINE SEDIMENT >100 Abnormal None Seen [facility] Comment on above: Performed By: #### L [id number] #### [facility] B[facility]OD [facility] , VARICELLA ZOSTER ANTIBODY, I GGon 09-04-2023 VARICELLA ZOSTER IGG 2.52 Normal [facility] Comment on above: Result Comment: NORM AL RANGES: < OR = 0.90 NEGATIVE ; NO DETECTABLE IgG ANTIBODY TO VARICELLA-ZOSTER VIRUS 0.91 - 1.09 EQUIVOCAL; REPEAT TESTING SUGGESTED > OR = 1.10 POSITIVE ; INDICATES PRESENCE OF DETECTABLE IgG ANTIBODY TO VARICELLA-ZOSTER VIRUS Performed By: #### L [id number] #### [facility] HOSPITAL LAB (BEAKER) [address] [place] [address] H PYLORI TISSUEon 12-21-2017 H PYL TISSUE, UREASE Negative Normal NEGATIVE [facility] Comment on above: Performed By: #### H PYLT ####[facility] [address] [place], [place] [address]UeoiegJoe Gee OPERATIVE NOTEon 12-21-2017 OPERATIVE NOTE OPERATIVE NOTEOPERAT ION DATE: 8-75-88YELDITENSB:Verse d 2 mg, topical Cetacaine spray.INDICATIONS: Dysphagia.PREOPERATIVE [...] orblood pressure pre or postop. 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 Admission #: [id number] : DR JONATHON LEE Order #: [id number] HERE TO VIEW EXAM RADIOLOGY REPORT PROCEDURE: [...] M.D. on 11/08/2017 at 17:17 Normal [facility] PROF CHEM 8 (BAS METB)on Anion gap 17.0 mmol/L Normal [facility] Comment on above: Performed By: #### B MP ####[facility] [address] [place] BUN/Creatinine Ratio 15.4 mg/mg Normal [facility] Comment on above: Performed By: #### B MP ####[facility] [address] [place] [id number] [place] Calcium 9.6 mg/dL Normal 8.4-10.2 [facility] Comment on above: Performed By: #### B MP ####[facility] [address] [place] [id number] [place] Chloride 105 mmol/L Normal 98-107 [facility] Comment on above: Performed By: #### B MP ####[facility] [address] [place], [place] [address]Qaqsgr [place] CO2 21.0 mmol/L Critically low 22.0-30.0 [facility] Comment on above: Performed By: #### B MP ####[facility] [address] [place], [place] [address]Ozhfcp [place] Creatinine 3.00 mg/dL Critically high 0.52-1.04 [facility] Comment on above: Performed By: #### B MP ####[facility] [address] [place], [place] [address]Einqdn [place] eGFR (non-black) 16 mL/min/{1.73_m2} Critically low >=60 [facility] Comment on above: Performed By: #### B MP ####[facility] [address] [place], [place] [address]Hrlqsd [place] eGFR (non-black) 20 mL/min/{1.73_m2} Critically low >=60 [facility] Comment on above: Performed By: #### B MP ####[facility] [address] [place], [place] [address]Waliww [place] Glucose mass conc 97 mg/dL Normal 74-106 The [facility] Comment on above: Performed By: #### B MP ####[facility] [address] [place], [place] [address]Fpwzpt [place] Potassium molar conc 4.9 mmol/L Normal 3.4-5.0 [facility] Comment on above: Performed By: #### B MP ####[facility] [address] [place], [place] [address]Yvuvxl [place] Sodium 138 mmol/L Normal 137-145 [facility] Comment on above: Performed By: #### B MP ####[facility] [address] [place], [place] [address]Rttfok [place] Urea nitrogen 46.0 mg/dL Critically high 7.0-17.0 [facility] Comment on above: Performed By: #### B MP ####[facility] [address] [place], [place] [address]VlnxnlJoe Gee Vital Signs Date Time Vital Sign Value Performing Clinician Hetal sepulveda 10-10-2023 14:21-0500 Blood Pressure Location Quintno ZUNIGA [facility] [place] 10-10-2023 14:21-0500 Diastolic blood pressure 90 mm[Hg] Quinton LOPEZL [facility] [place] 10-10-2023 14:21-0500 Heart rate 76 /min Quinton LOPEZL [facility] [place] 10-10-2023 14:21-0500 Respiratory rate 16 /min Quinton ZUNIGA [facility] [place] 10-10-2023 14:21-0500 Systolic blood pressure 128 mm[Hg] Quinton ZUNIGA [facility] [place] Encounters Encounter Date Encounter Type Care Provider Facility Start: 11-09-2023 End: 11-10-2023 ambulatory JONATHON LEE [facility] Start: 11-07-[address] [facility] Start: 11-07-2023 Encounter for preprocedural cardiovascular examination [facility] Start: 11-07-2023 End: 11-08-2023 ambulatory [facility] Start: 10-10-2023 End: 10-11-2023 ambulatory JONATHON LEE Facility:[facility] Start: 10-10-2023 End: 10-10-2023 Patient encounter procedure Quinton ZUNIGA [facility] Start: 10-02-2023 End: 10-03-2023 ambulatory JONATHON LEE [facility] Start: 10-01-2023 End: 10-02-2023 ambulatory JONATHON LEE [facility] Start: 09-27-2023 ambulatory JONATHON LEE Facility :[facility] Start: 09-04-2023 End: 09-05-2023 ambulatory ALFREDO CRUZ [facility] Start: 09-04-2023 End: 09-04-2023 ambulatory ALFREDO CRUZ [facility] Start: 09-04-2023 ambulatory LU PLUNKETT [facility] Start: 09-04-2023 Encounter for other preprocedural examination SARA VELAZCO [facility] Start: 12-21-2017 End: 12-21-2017 Ambulatory JONATHON LEE Facility:[facility] Start: 11-08-2017 End: 11-09-2017 Ambulatory DAHLIA DRIVER JR Facility:[facility] Procedures Date Procedure Procedure Detail Performing Clinician Start: 11-15-2017 Cystourethroscopy with dilation of urethral stricture Quinton ZUNIGA Start: 12-16-2015 Colonoscopy Quinton ZUNIGA Continuous ambulator y peritoneal dialysis Quinton ZUNIGA Esophagogastroduodenoscopy M esteegenevieve EFRAIN Immunizations Immunization Date Immunization Notes Care Provider Fa cili 06-06-2022 SARS-CoV-2 (COVID-19 ) [id number] Quinton ZUNIGA [facility] [place] 08-29-2021 SARS-CoV-2 (COVID-19 ) mRNA BNT-162b2 vax Quinton LOPEZL [facility] [place] 01-09-2021 SARS-CoV-2 (COVID-19 ) mRNA BNT-162b2 vax Quinton LOPEZL [facility] [place] 12-20-2020 SARS-CoV-2 (COVID-19 ) mRNA BNT-162b2 vax Quinton LOPEZL [facility] [place] Payers Date Payer Category Payer Unknown [id number] 2021 Medicare [id number] 1965 Unknown [id number] [id number] [id number] 1965 Unknown [id number] [id number] [id number] 1965 Unknown [id number] 2.16.8 [id number] 1965 Unknown [id number] 2.16.84 [id number] 1965 Unknown [id number] 2.16.84 [id number] 1961 Unknown [id number] Social History Date Type Detail Facility Start: 10-10-2023 Tobacco smoking status Never s moked tobacco (finding) [facility] Tobacco smoking status Never Gener [facility] [place] Sex Assigned At Female [facility] Functional Status Date Assessment Result Facility 10-10-2023 Functional Status N/A [facility] Clinical Notes 04-17-2023 to 11-07-2023 Note Date & Type Note Facility 11-07-2023 Note [place] [facility] V[facility] Kendy Zambrano is a 58 y.o. 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 ) Patient Active Problem List Diagnosis Metatarsus adductus Osteoarthritis CKD (chronic kidney disease) stage 5, GFR less than 15 ml/min ([facility]) Migraines Vitamin D deficiency Secondary hyperparathyroidism of renal origin ([facility]) Hypertensive disorder Hyperlipidemia ESRD (end stage renal disease) on dialysis ([facility]) Family History Problem Relation Name Age of [...] Other Visits: k (more content not included)... [facility] 10-10-2023 Note Chief Complaint consultation for [...] SARS-CoV-2 (COVID-19) mRNAMUL. (more content not included)... [facility] Comment on above: Result Comment: Elec tronically Signed By: EFRAIN THOMPSON, Quinton Linda\Date and Time Signed: 10/10/23 14:40 EST 09-04-2023 Note Lauren Triana saw the patient in clinic in lieu of transplant student financial services counselor. They understood all the financial responsibilities associated [...] and patient financial responsibility forms they signed. [facility] 09-04-2023 Note Transplant Nutrition Assessment Name: [...] away from the home. Diet Recall Breakfast: Margaret instant breakfast with pills Lunch: most days [...] concerns at this time. Quique Olivares RD [facility] 09-04-2023 Note Identifying Informat ion Name: Mulu Zambrano : 1965 Assessment date: 09/04/2023 Transplant type: Kidney Transplant Evaluation - 09/04/2023 Primary language: Belarusian Caodaism/spirituality: No denominational affiliation People present at assessment: [place]- Daughter in law Do you have any denominational, ethical or personal objections to accepting blood products, surgery and/or transplant? No Citizenship Where were you born? In the [place] in [place], [place] Where do you currently live or are staying? [place], [place]- 1 hour Family Background and Supportive Relationships Parents: Mom- living and healthy, Dad- , esophogeal cancer Siblings: 1 sister, healthy Children: Biological Number of children, living or (UNOS question): 2 Names, age, health status, relationship, address: [facility], 38, healthy, [place], [place] S[place], 38, healthy, [place], [place] Good relationships with both boys Marital/relationship status: - 16 years ago Household composition: Lives alone Are there any current or past significant life changes or traumatic events? Father passing Support / Caregiver Plans Who will be your primary caregiver? Bimxnqvw-nk-pxr Adenwnelee- Daughter in law Contact #: [phone] Health status & availability: Healthy. Works a flexed schedule. Able to drive. Who will be your secondary caregiver(s)? Richelle - granddaughter Contact #: [phone] Health status & availability: Healthy. 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 yes Are you receiving assistance through [employer] [facility] DEBBIE Program: No - will [...] Patient has no recorded history of dialysis. Renal [place], [place] Dialysis Schedule: PD at home. Cycler. [...] has your relatio (more content not included)... [facility] 09-04-2023 Note This report has been cancelled. [facility] 09-04-2023 Note 09/04/23 Coordinator met with patient for initial transplant evaluation appointment in Transplant clinic today. Explained transplant process and consents with patient. Answered patient questions. Social work, finance and housekeeping aid in to see patient. Dr. Cruz in for H&P and transplant plan. Dr. Velazco in for surgical evaluation. Coordinator provided copy of plan to patient and reviewed it with them. Patient aware further testing needed and to keep transplant team updated. Understanding verbalized by patient. Hair Spinner provided verbal order for patient labs, EKG, CXR and CT scan today. Work-up Needed-Date of Eval Letter Mailed to patient and faxed to Hair Spinner/ Dialysis Center. Tobacco Grader provided patient TE folder with education on various transplant consents, the workup process, surgery details, postop expectations, transplant statistics, and living donor information. Answered patient questions and verified understanding. [facility] 09-04-2023 Note Pre-Transplant Evalu ation Nephrology Consult Chief Complaint Patient presents with Kidney Transplant Evaluation PCP: Jonathon Lee MD Txp Referring: Fidelia Garcia Preferred Pharmacy: [id number] - [facility] [place] [address] [address] Subjective Visit Vitals BP 138/79 (BP Location: [...] Cartia XT 120 mg 24 hr capsule [id number] Yes Take 120 mg by mouth in the morning and at bedtime. Historical Provider, Taking Active Dialyvite 100-1 mg tablet [id number] Yes Take 1 tablet by mouth in the morning. Historical Provider, Taking Active dilTIAZem CD (Cardizem CD) 180 mg 24 hr capsule [id number] Yes Take 180 mg by mouth in the morning and at bedtime. Historical Provider, Taking Active gabapentin (Neurontin) 300 mg capsule [id number] Yes Take 300 mg by mouth at bedtime. Historical Provider, Taking Active pantoprazole (ProtoNix) 40 mg EC tablet [id number] Yes Take 40 mg by mouth in the morning. Historical Provider, Taking Active rosuvastatin (Crestor) 40 mg tablet [id number] Yes Take 20 mg by mouth in the morning. Historical Provider, Taking Active Immunization History Administered Date(s) Administered Covid (Pfizer) Bivalent Booster =>12 YRS 06/06/2022 Moderna SARS-CoV-2 Vaccination 06/06/2022 Pfizer SARS-CoV-2 Vaccination 12/20/2020, 01/09/2021, 08/29/2021 Patient Active Problem List Diagnosis Metatarsus adductus Osteoarthritis CKD (chronic kidney disease) stage 5, GFR less than 15 ml/min (CMS/HCC) Migraines Vitamin D deficiency Secondary hyperparathyroidism of renal origin (CMS/HCC) Hypertensive disorder Hyperlipidemia ESRD (end stage renal disease) on dialysis ([facility]) Family History Problem Relation Name Age of Onset Cancer Father Donaldo Breast cancer Mother's Sister Breast cancer Cousin Social History Tobacco Use Smoking status: Never Smokeless tobacco: Never Vaping Use Vaping Use: Never used Substance Use Topics Alcohol use: Yes Comment: Occasional Drug use: Never Past Medical History: Diagnosis Date CKD (chronic kidney disease) stage 5, GFR less than 15 ml/min ([facility]/HCC) ESRD (end stage renal disease) on dialysis (CMS/[facility]) Hyperlipidemia Hypertensive disorder Metatarsus adductus Migraines Osteoarthritis right foot Secondary hyperparathyroidism of renal origin (CMS/HCC) Vitamin D deficiency Past Surgical History: Procedure Laterality Date COLONOSCOPY CT ABDOMEN PELVIS WO RENAL RECIPIENT 09/04/2023 CT ABDOMEN PELVIS WO RENAL RECIPIENT 09/04/2023 [facility] CT IMAGING ESOPHAGOGASTRODUODENOSCOPY PERITONEAL CATHETER INSERTION 05/25/2023 RENAL BIOPSY 2010 Dialysis History Patient has no recorded history of dialysis. 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 Per her RETAIL STORE ASSOCIATE, renal biopsy from 2010 revealed findings consistent [...] at [facility]. Her real estate rep is Dr Kang. Her past medical history [...] or intermittent claudicatio (more content not included)... [facility] 09-04-2023 Note Pre-Transplant Kidne y Evaluation Surgery Consultation Chief complaint: Kidney transplant evaluation PCP: Jonathon Lee MD Txp Referring: Fidelia Garcia Preferred Pharmacy: [facility] #[id number] - [place], [place] - [address] [address] Subjective Visit Vitals BP 138/79 (BP Location: [...] Cartia XT 120 mg 24 hr capsule [id number] Yes Take 120 mg by mouth in the morning and at bedtime. Historical ProviderMD Taking Active Dialyvite 100-1 mg tablet [id number] Yes Take 1 tablet by mouth in the morning. Historical ProviderMD Taking Active dilTIAZem CD (Cardizem CD) 180 mg 24 hr capsule [id number] Yes Take 180 mg by mouth in the morning and at bedtime. Historical ProviderMD Taking Active gabapentin (Neurontin) 300 mg capsule [id number] Yes Take 300 mg by mouth at bedtime. Historical Provider, Taking Active pantoprazole (ProtoNix) 40 mg EC tablet [id number] Yes Take 40 mg by mouth in the morning. Historical ProviderMD Taking Active rosuvastatin (Crestor) 40 mg tablet [id number] Yes Take 20 mg by mouth in the morning. Historical ProviderMD Taking Active Immunization History Administered Date(s) Administered Covid (Pfizer) Bivalent Booster =>12 YRS 06/06/2022 Moderna SARS-CoV-2 Vaccination 06/06/2022 Pfizer Covid-19 Vaccine, fall-09/06/2023 Pfizer SARS-CoV-2 Vaccination 12/20/2020, 01/09/2021, 08/29/2021 Diagnoses: 1. Hypertension, unspecified type [I10] 2. Abnormal finding of blood chemistry, unspecified 3. End stage renal disease (CMS/HCC) 4. Hypertension, essential 5. Pre-transplant evaluation for end stage renal disease Problems: Patient Active Problem List Diagnosis Metatarsus adductus Osteoarthritis CKD (chronic kidney disease) stage 5, GFR less than 15 ml/min ([facility]) Migraines Vitamin D deficiency Secondary hyperparathyroidism of renal origin ([facility]/HCC) Hypertensive disorder Hyperlipidemia ESRD (end stage renal disease) on dialysis ([facility]) Family History Problem Relation Name Age of Onset Cancer Father Donaldo Breast cancer Mother's Sister Breast cancer Cousin Social History Tobacco Use Smoking status: Never Smokeless tobacco: Never Vaping Use Vaping Use: Never used Substance Use Topics Alcohol use: Yes Comment: Occasional Drug use: Never Past Medical History: Diagnosis Date CKD (chronic kidney disease) stage 5, GFR less than 15 ml/min ([facility]) ESRD (end stage renal disease) on dialysis ([facility]) Hyperlipidemia Hypertensive disorder Metatarsus adductus Migraines Osteoarthritis right foot Secondary hyperparathyroidism of renal origin ([facility]) Vitamin D deficiency Past Surgical History: Procedure Laterality Date COLONOSCOPY CT ABDOMEN PELVIS WO RENAL RECIPIENT 09/04/2023 CT ABDOMEN PELVIS WO RENAL RECIPIENT 09/04/[address] [facility] CT IMAGING ESOPHAGOGASTRODUODENOSCOPY PERITONEAL CATHETER INSERTION 05/25/2023 RENAL BIOPSY 2010 Dialysis History Start End Type Center Comments 05/25/2023 [facility] [email or web address] [facility] [email or web address] [facility] Address: [address] [place] [phone] Travel Screening No screening recorded since 09/03/23 0000 Travel History Travel since 08/05/23 No documented travel since 08/05/23 HPI The patient is a 58 year old female with chronic renal failure ESRD secondary to biopsy-proven hypertensive nephrosclerosis and chronic interstitial nephritis. Per her RETAIL STORE ASSOCIATE, renal biopsy from 2010 revealed findings consistent [...] at [facility]. Her real estate rep is Dr Kang. Her past medical history [...] not on an (more content not included)... [facility] 05-17-2023 Note TC called patients n ephrology office to request insurance cards again. Nephrology office staff confirmed that they had the insurance cards on file, confirmed the fax number to send to and said the would send it over right away. [facility] 04-17-2023 Note TC reached out to th e patient's nephrology office to request insurance cards in order to process referral. Ey stated they would fax. Bveerley Winters RN [facility] Evaluation + Plan note No data available for this section [facility] [place] [facility] Discharge instructions No data available for this section [facility] [place] Progress note No data available for this section [facility] [place] Summary Purpose Family History No Family History Records Found No data available for this section No Family History Records FoundNo Family History Records FoundNo Family History Records Found Advance Directives No Advanced Directives Records FoundNo Advanced Directives Records FoundNo Advanced Directives Records FoundNo Advanced Directives Records Found Additional Source Comments INFORMATION SOURCE (unrecogn ized section and content) DATE CREATED AUTHOR 03/14/2018 [facility] DATE CREATED AUTHOR AUTHOR'S ORGANIZ ATION 10/27/2023 [facility] DATE CREATED AUTHOR AUTHOR'S ORGANIZ ATION 11/11/2023 [facility] DATE CREATED AUTHOR AUTHOR'S ORGANIZ ATION 11/20/2023 [facility] Patient Care team portia thornton (unrecognized section and content) Personnel Name: JONATHON LEE JR, DO Address: Address: [address] [place] [address] [place] [address] US FOR RECORDS PERTAINING TO PATIENTS WHO ARE [...] BE BASED ON THE PRIMARY CLINICAL RECORDS. [employer] provides no warranty or guarantee of the accuracy or completeness of information in this document.
[2023-11-25 16:07] LABS: Age Gdln ACOG Testing Note (.); HPV Aptima Negative (Negative); IGP, Aptima HPV, rfx 16/18,45 Note (.)
== END 2023-11-20 20:40 | disposition home or self-care (01) ==
LOC: LAB 20:39
PROVIDERS: PCP Internal Medicine; Visit Provider Physician Assistant
DX: Z01.419 Encounter for gynecological examination (general) (routine) without abnormal findings (principal)
CPT/HCPCS: 87624; G0145